=== PATIENT | female | born 2005 | race Two or more races ===

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

== ENCOUNTER 2023-01-05 10:30 | Outpatient (AMB) | payer MEDICAID, SELFPAY ==
--- NOTE | 2023-01-05 11:02 | MHC.OFFVIS ---
Intake Intake Visit Reasons: 6m/KUB(set) Intake Note: Patient is present for follow up ultrasound/litholink results (imaging 12/22/22) Urology Medications: nonoe Antibiotic Allergy: None Head Inspector Required: No Accompanied by: Mother Allergies Seasonal Allergies Allergy (Unknown, Verified 01/05/23 11:27) Unknown Medication List - Last Reconciled 01/05/23 by CARMELO Vail- acetaminophen (Tylenol) 650 mg (2 x 325 mg) PO Q6H PRN albuterol sulfate 90 mcg/actuation (ProAir HFA) 2 - 4 puffs inhalation Q4H PRN cetirizine 10 mg PO DAILY PRN cholecalciferol (vitamin D3) 25 mcg PO DAILY 30 days etonogestrel (Nexplanon) subdermal fluticasone propionate 44 mcg/actuation (Flovent HFA) inhalation hyoscyamine sulfate (Levsin/SL) 0.125 mg PO BID-QID PRN ibuprofen 400 mg PO Q6H PRN inhalational spacing device ([facility] spacer) As directed pantoprazole 40 mg PO DAILY prednisone 20 mg PO DAILY 5 days psyllium husk (Metamucil) 1 tbsp PO BID PRN pyridoxine (vitamin B6) 50 mg PO DAILY 90 days tamsulosin 0.4 mg PO DAILY 14 days HPI HPI Comments History of Present Illness Details Stephanie is a very pleasant 17 year old female patient of Dr. Bailey who was accompanied by her mom at today's office visit. She has a past medical history of hyperparathyroidism, hyperbilirubinemia, goiter, vitamin-D deficiency, hypercalcemia, nephrolithiasis, and asthma. She presents to the office today for follow-up of her nephrolithiasis. Recent imaging and 24 hour urine collection results reviewed with the patient and her mother today. Extremely low urine volume of 310 mL suggestive of discrepancy in the collection process. When asked patient does report having collected your risk appropriatetly. The kidneys are normal in size, contour, and echogenicity. No lesions or hydronephrosis noted bilaterally there are numerous nonobstructing calcifications bilaterally the largest measuring approximately 0.5 cm. When asked patient does report concentrated and foul-smelling urine she otherwise denies urinary urgency, urinary frequency, incontinence, nocturia, hematuria, dysuria,, changes to urinary stream, flank pain, fever, and or chills. She is happy with her current voiding parameters. She does endorse to only be drinking 1-2 cups of water daily as well as increased consumption is a of coffee. Discussed at length importance of drinking plenty of water daily. Discussed concentrated and foul-smelling urine related to low urine volume output. Previous labs noting low vitamin-D with elevated borderline calcium and normal PTH. She had been placed on vitamin-D supplementation by primary care and started vitamin B6 approximately 6 months ago. She has a strong family history of nephrolithiasis. In office urinalysis results reviewed with the patient today. BUN-- 04/03 8, 06/03 10, 06/03 11, 07/04 11 Creatinine--04/03 0.66, 06/03 0.77, 06/03 0.81, 07/04 0.77 PFSH Medical History Hyperparathyroidism Hyperbilirubinemia Goiter Vitamin D deficiency Hypercalcemia Bilateral kidney stones Asthma Surgical History Hx of colonoscopy History of esophagogastroduodenoscopy (EGD) History of wisdom tooth extraction Family History Mother No known health problems Father No known health problems Social History Alcohol intake: never Patient Tobacco Use Status: Never used Tobacco Results AMB Urinalysis, Automated UA Leukoctes 70 Judy/uL Last Edit by Steph Felipe on 01/05/23 11:15 UA Nitrite Negative Last Edit by Steph Felipe on 01/05/23 11:15 UA Urobilinogen 0.2 mg/dL Last Edit by Steph Felipe on 01/05/23 11:15 UA Protein 15 mg/dL Last Edit by Steph Felipe on 01/05/23 11:15 UA pH 6.0 Last Edit by Steph Felipe on 01/05/23 11:15 UA Blood 80 Ernesto/uL Last Edit by Steph Felipe on 01/05/23 11:15 UA Specific [place] 1.015 Last Edit by Steph Felipe on 01/05/23 11:15 UA Ketone Last Edit by Steph Mirellakayode on 01/05/23 11:15 UA Bilirubin 0 mg/dL Last Edit by Montanagracemeghna Vukayode on 01/05/23 11:15 UA Glucose 0 mg/dL Last Edit by Steph Mirellakayode on 01/05/23 11:15 Results Reviewed Results Reviewed: Laboratory Last Values Urine pH (Auto) 6.0 01/05/23 11:05 Specific [place] (Auto) 1.015 01/05/23 11:05 Urine Protein (Auto) 15 mg/dL 01/05/23 11:05 Glucose (UA)(Auto) 0 mg/dL 01/05/23 11:05 Urine Blood (Auto) 80 Ernesto/uL 01/05/23 11:05 Urine Nitrite (Auto) Negative 01/05/23 11:05 Urine Bilirubin (Auto) 0 mg/dL 01/05/23 11:05 Urine Urobilinogen (Auto) 0.2 mg/dL 01/05/23 11:05 Leukocyte Esterase (Auto) 70 Judy/uL 01/05/23 11:05 Date of Service: 12/22/22 EXAMINATION: US RETROPERITONEAL LIMITED (RENAL ONLY) FINDINGS: RIGHT KIDNEY: 9.2 x 4.9 x 5.4 cm (SAG x AP x TRV). The kidney is normal in size, contour, and echogenicity. Renal cortical thickness is normal. No focal parenchymal lesions or hydronephrosis. There are numerous nonobstructing calcifications with the largest measured 0.5 cm. LEFT KIDNEY: 9.4 x 5.1 x 4.6 cm (SAG x AP x TRV). The kidney is normal in size, contour, and echogenicity. Renal cortical thickness is normal. No focal parenchymal lesions or hydronephrosis. There are multiple small calcifications with the largest measured 0.5 cm IMPRESSION: Multiple small renal calculi seen bilaterally Assessment & Plan Assessment & Plan (1) Bilateral kidney stones: Code(s): N20.0 - Calculus of kidney Plan In office urinalysis results reviewed with the patient today; as noted above. Recent renal imaging results reviewed with the patient today; as noted above. Recent 24 hour urine collection results reviewed with the patient today; as noted above. Continue vitamin B6 and D supplements as prescribed. Discussed, stressed, and encouraged to drink plenty of water daily. Will repeat 24 hour urine in 3 months Follow-up in 3 months with 24 hour urine and labs to be completed prior; or sooner with any issues, concerns, and or questions. Orders: Orders Blood Urea Nitrogen 01/05/23 N20.0 - Calculus of kidney AMB Urinalysis Automated 01/05/23 Z13.9 - Encounter for screening, unspecified URORISK 3 Months N20.0 - Calculus of kidney Creatinine 01/05/23 N20.0 - Calculus of kidney Patient Instructions: The patient had an opportunity to ask questions regarding the treatment plan. All questions were answered. Physical exam, labs, and imaging were discussed and reviewed in detail. As well as risks, benefits, and discussion of treatment choices. No major barriers to understanding were identified. The patient expressed understanding and agreement with the above treatment plan. The patient was made aware they should contact our office by phone for worsening of their current condition, the appearance of new symptoms, or with any questions or concerns. Compliance is encouraged with any medications and follow up testing that is ordered. It is a privilege to be allowed the opportunity to participate in? your urological care.? Again, if you have any questions or concerns If you have any questions or concerns please do not hesitate to contact me. The office is [phone]. This note is constructed using voice recognition software. While every effort has been made to ensure accuracy allergy specialist errors may have been included. Yours sincerely, JEFE Vail Coding Level of Care Code Est Pt Level 3 (70338) Diagnoses Bilateral kidney stones N20.0
== END 2023-01-05 12:08 | disposition home or self-care (01) ==
PROVIDERS: Visit Provider Nurse Practitioner Family
DX: N20.0 Calculus of kidney (principal)
CPT/HCPCS: 99213

== ENCOUNTER → 2023-01-05 10:30 | Outpatient (BNVA) | payer MEDICAID, SELFPAY | PROVIDERS: Visit Provider Nurse Practitioner Family | DX: N20.0 Calculus of kidney (principal) | CPT/HCPCS: 81003; 99212 ==

== ENCOUNTER 2023-02-25 13:07 | Emergency (ER) | payer OTHER, MEDICAID, SELFPAY ==
--- NOTE | ~2023-02-25 | CT_ITS ---
EXAMINATION: CT ANGIOGRAM ABDOMEN AND PELVIS CLINICAL INFORMATION: Worsening abdominal pain. COMPARISON: CT angiography of abdomen and pelvis from 09/01/2022. Renal ultrasound from 12/22/2022. TECHNIQUE: Multidetector CT imaging examination of the abdomen and pelvis is performed in the arterial phase of intravenous administration of 80 mL Omnipaque 350. The axial images and multiplanar reformatted images are reviewed. Images were not reviewed on a dedicated 3-D workstation. 2-D coronal and sagittal reformatted images and 3-D maximum intensity projection MIP images are generated on the CT workstation. This CT examination was performed using dose optimization techniques as appropriate, variously including the following: *Automated exposure control *Adjustment of mA and/or kV according to patient size (this includes techniques or standardized protocols for targeted exams where dose is matched to indication/reason for exam; i.e. extremities or head) *Use of iterative reconstruction technique DLP: 291 mGy-cm FINDINGS: LUNG BASES: Normal. No pulmonary consolidation or pleural effusion. HEPATOBILIARY: The liver has normal size, shape, and attenuation. Gallbladder has a normal appearance. No radiopaque stones, wall thickening or pericholecystic fluid. No dilated bile ducts. PANCREAS: No edema, pancreatic ductal dilatation or mass. SPLEEN: Normal. ADRENAL GLANDS: Normal. KIDNEYS AND URETERS: Kidneys are normal in size and enhance symmetrically. There is a 0.4 cm calyceal stone of the mid left kidney. Also, there are a few small stones of the mid and left lower pole. Multiple calyceal stones are present within the right kidney, all measuring < 0.5 cm. No ureteral calculi, hydroureter or hydronephrosis. BLADDER: Normal. No calculi or wall thickening. BOWEL AND PERITONEUM: Stomach is normal. No dilated loops of bowel. No evidence of bowel wall edema, mucosal hyperenhancement or mesenteric fat stranding. The appendix is normal. No free fluid or pneumoperitoneum. ABDOMINAL WALL: Normal. VASCULATURE: Abdominal aorta has normal caliber and contour. The celiac artery and its branches are widely patent. No significant celiac artery stenosis. There is no hooked appearance of the vessel; no anatomic abnormalities on this angiography examination to suggest any predisposition to a clinically significant median arcuate ligament compression abnormality. The superior and inferior mesenteric arteries are normal. The renal arteries are widely patent. The common, external and internal iliac arteries are normal. LYMPH NODES: No pathologic sized lymph nodes in the abdomen or pelvis. No inguinal lymphadenopathy. PELVIC VISCERA: No uterine or adnexal mass. No pelvic free fluid. MUSCULOSKELETAL: No acute or suspicious osseous findings. 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 CT/CT angio abdomen pelvis IMPRESSION: * No acute imaging abnormalities. No specific source of abdominal pain is identified. There is no evidence of inflammatory change or obstruction of bowel. * The abdominal aorta and its branch vessels are widely patent. There is no significant stenosis of the celiac artery or SMA. * Again noted are multiple bilateral renal stones. However, no evidence of ureteral calculi or hydroureteronephrosis.
--- NOTE | ~2023-02-25 | XR_ITS ---
EXAMINATION: XR CHEST CLINICAL INFORMATION: Epigastric pain. COMPARISON: None available. TECHNIQUE: 2 views of the chest were obtained. FINDINGS: Lungs are well-inflated and clear. Trachea is midline in position. No interstitial infiltrate, consolidation or mass. No pleural effusion or pneumothorax. Cardiac silhouette and pulmonary vessels are normal in size. The mediastinum and constantin have normal contour. The visualized bones and upper abdomen are unremarkable. No evidence of bowel distention or pneumoperitoneum in the visualized portion of the upper abdomen. XR/XR chest 2V IMPRESSION: Normal chest. No acute cardiopulmonary abnormality.
[2023-02-25 13:17] VITALS: BP 132/70; PULSE 86; RESP 20; TEMP 37.1; O2SAT 99; BMI 25.3
--- NOTE | 2023-02-25 13:17 | ECG_ITS ---
Test Reason : epigastric pain Blood Pressure : / mmHG Vent. Rate : 077 BPM Atrial Rate : 077 BPM P-R Int : 138 ms QRS Dur : 080 ms QT Int : 388 ms P-R-T Axes : 068 041 010 degrees QTc Int : 439 ms Normal sinus rhythm with sinus arrhythmia Normal ECG No previous ECGs available Referred By: Tori Grijalva Electronically Signed By:Zac Martinez
--- NOTE | 2023-02-25 13:17 | ED.GENADULT ---
HPI - General Adult General Chief complaint: Abdominal Pain Stated complaint: Upper Stomach Pain Time Seen by Provider: 02/25/23 13:51 Source: patient, family and old records reviewed Mode of arrival: ambulatory Limitations: no limitations History of Present Illness HPI narrative: 17 yo female with PMH of GERD, abdominal pain, MALS followed by juan jose Santizo Dr. from GI - on pantoprazole, elevate bili levels who comes in with c/o burning abdominal pain up into the chest that hurts to eat which staretd tuesday. she is compliant with her PPI. She denies known food exposure or change in diet. She hasn't eaten much due to the pain. She states she doesn't feel great. The pain was so severe at one point that she like weak and dizzy with white spots like she might pass out. Her mom tried to call GI and vascular but no answer. MD complaint: abdominal pain Onset (ago): day(s) (2) Location: abdomen Radiation: non-radiation Severity: moderate Quality: burning Pain Consistency: constant Relieving factors: none Exacerbating factors: eating Associated symptoms: nausea/vomiting Treatments prior to arrival: none Related Data Home Medications Medication Instructions Recorded Confirmed albuterol sulfate 90 mcg/actuation 2 - 4 puff inhalation Q4H PRN 06/16/22 07/23/22 aerosol inhaler (ProAir HFA) Shortness Of Breath cetirizine 10 mg tablet 10 mg PO DAILY PRN allergies 06/16/22 07/23/22 etonogestrel 68 mg subdermal subdermal 06/16/22 06/16/22 implant (Nexplanon) ibuprofen 400 mg tablet 400 mg PO Q6H PRN moderate pain 06/16/22 07/23/22 fluticasone propionate 44 inhalation 07/27/22 07/27/22 mcg/actuation HFA aerosol inhaler (Flovent HFA) psyllium husk 3.4 gram/5.4 gram 1 tbsp PO BID PRN Constipation 07/27/22 07/23/22 oral powder (Metamucil) inhalational spacing device #1 ea 12/27/22 (OptiChamber Koki VHC spacer) Previous Rx's Medication Instructions Recorded acetaminophen 325 mg tablet 650 mg (2 x 325 mg) PO Q6H PRN 02/11/21 (Tylenol) fever or pain #10 tabs cholecalciferol (vitamin D3) 25 25 mcg PO DAILY 30 days #30 caps 06/21/22 mcg (1,000 unit) capsule prednisone 20 mg tablet 20 mg PO DAILY 5 days #5 tabs 10/20/22 tamsulosin 0.4 mg capsule 0.4 mg PO DAILY 14 days #14 caps 10/20/22 pantoprazole 40 mg tablet,delayed 40 mg PO DAILY #90 tabs 11/22/22 release hyoscyamine sulfate 0.125 mg 0.125 mg PO BID-QID PRN dyspepsia 12/27/22 sublingual tablet (Levsin/SL) #30 tabs pyridoxine (vitamin B6) 50 mg 50 mg PO DAILY 90 days #90 tabs 01/07/23 tablet sucralfate 100 mg/mL oral 5 ml PO TID #1,000 mL 02/25/23 suspension (Carafate) Allergies Allergy/AdvReac Type Severity Reaction Status Date / Time Seasonal Allergies Allergy Unknown Unknown Verified 01/05/23 11:27 Review of Systems Review of Systems: Constitutional : No Weight loss, No Fever, No Chills ENT/Mouth : No sore throat, No Rhinorrhea Eyes: No Swelling, No Redness Cardiovascular : No Chest Pain, No SOB, NoEdema Respiratory : No Cough, No Sputum, No Wheezing Gastrointestinal : Positive Nausea, no Vomiting, no Diarrhea, positive abdominal Pain, No Hematochezia, No Melena Genitourinary : No Dysuria, No Urinary Frequency, No Hematuria, No Urgency Musculoskeletal : No joint pain, No Myalgias, No Joint Swelling Skin : No Skin Lesions, No rash Neuro : No Weakness, No Numbness, No Dizziness, No Headache Psych : No Anxiety/Panic, No Depression Heme/Lymph: No Bruising, No Lymphadenopathy Endocrine : No Polyuria, No Polydipsia All other systems reviewed and are negative. [facility] Past Medical History Source: old records reviewed Medical History Hyperparathyroidism Hyperbilirubinemia Goiter Vitamin D deficiency Hypercalcemia Bilateral kidney stones Asthma Surgical History Hx of colonoscopy History of esophagogastroduodenoscopy (EGD) History of wisdom tooth extraction Family History Family History Mother No known health problems Father No known health problems Social History Social History Alcohol intake: never Patient Tobacco Use Status: Never used Tobacco Advance Directives: No Advance Directives Information Provided: Yes Physical Exam ED Vital Signs: Vital Signs - 24 hr 02/25/23 13:17 02/25/23 16:57 Temperature 98.7 F 98.5 F Pulse Rate 86 84 Respiratory Rate 20 16 Blood Pressure 132/70 111/66 Pulse Oximetry 99 99 Oxygen Delivery Method Room Air Room Air BMI result Body Mass Index 25.3 Appearance: Alert. Oriented X3. No acute distress. Eyes: Pupils equal, round and reactive to light. ENT: Pharynx normal. Neck: Normal inspection. Neck supple. CVS: Normal heart rate and rhythm. Pulses normal. Respiratory: No respiratory distress. Breath sounds normal. Abdomen: Soft and nontender. Skin: Skin warm and dry. Normal skin color. Normal skin turgor. Extremities: No lower extremity edema. No calf ttp Neuro: Oriented X 3. No motor deficit. No sensory deficit. Course Course Course Narrative: RME performed by Tori Grijalva PA-C. Patient is a 17 year old assigned female at presenting to the emergency department with burning pain in her upper abdomen after she eats. Patient states that is much worse when she lies flat. Labs and swabs ordered. Patient placed back in the waiting room pending room availability and results. Medications Administered Discontinued Medications Generic Name Dose Route Start Last Admin Trade Name Freq PRN Reason Stop Dose Admin Al Hydroxide/Mg Hydroxide 15 ml 02/25/23 14:17 02/25/23 14:31 Magnesium Hydrox/Alum Hydrox 30 Ml Oral.Susp PO 02/25/23 14:18 15 ml ONCE ONE Administration Sodium Chloride 1,000 mls @ 999 mls/hr 02/25/23 14:30 02/25/23 14:27 Ns IV 02/25/23 15:30 999 mls/hr .Q1H1M ZARINA Administration Iohexol 80 ml 02/25/23 16:12 02/25/23 16:12 Iohexol 350 Mg/Ml 100 Ml Infus..Btl IV 02/25/23 16:13 80 ml ONCE ONE Administration Lidocaine HCl 15 ml 02/25/23 14:17 02/25/23 14:31 Lidocaine Hcl Viscous 2 % 15 Ml Solution MUCOUS MEM 02/25/23 14:18 15 ml ONCE ONE Administration Ondansetron HCl 4 mg 02/25/23 14:17 02/25/23 14:31 Ondansetron Hcl 4 Mg/2 Ml Vial IVPUSH 02/25/23 14:18 4 mg ONCE ONE Administration Medical Decision Making Medical Decision Making MDM Narrative: 17 yo female with PMH of GERD, abdominal pain, MALS followed by juan jose Santizo Dr. from GI - on pantoprazole, elevate bili levels who comes in with c/o worsening abdominal pain but no GIB symptom no vomiting - at this time given hx will obtain basic labs, CTA of abdomen given MALS and hydrate as well as GI cocktail. Differential Diagnosis Differential Diagnoses: The differential diagnosis associated with the presentation includes gastritis, GERD, MAL Admission/Observation Consideration of admission/observation: Escalation of care including admission/observation considered negative workup stable for DC will start on carafate CT scan reassuring Lab Data [facility] Lab Attestation statement: I reviewed the patient's lab results. 02/25/23 14:11 02/25/23 14:11 Labs: Lab Results 02/25/23 02/25/23 02/25/23 Range/Units 13:45 14:11 17:26 WBC 10.6 (4.8-10.8) X10*3/uL RBC 4.67 (4.20-5.50) X10*6/uL Hgb 13.7 (12.0-16.0) g/dl Hct 41.5 (37.0-47.0) % MCV 88.9 (80.0-98.0) fL MCH 29.3 (27.0-33.0) pg MCHC 33.0 (31.0-35.0) g/dl RDW 12.7 (11.0-16.0) % Plt Count 353 (160-400) X10*3/uL MPV 9.4 (9.4-12.3) fL Immature Gran % (Auto) 0.3 (0.0-0.4) % Neut % (Auto) 68.7 (45-73) % Lymph % (Auto) 20.3 (20-40) % [place] % (Auto) 7.3 (2-11) % Eos % (Auto) 2.9 (0-4) % Baso % (Auto) 0.5 (0-2) % Lymph # (Auto) 2.2 (1.2-4.9) X10*3/uL [place] # (Auto) 0.8 (0.1-1.2) X10*3/uL Eos # (Auto) 0.3 (0.0-0.4) X10*3/uL Baso # (Auto) 0.1 (0.0-0.2) X10*3/uL Abs Immat Gran (auto) 0.03 (0.00-0.03) X10*3/uL Absolute Neuts (auto) 7.3 (2.0-8.3) x10*3/uL Absolute Nucleated RBC 0.000 (0.0-0.012) X10*3/uL Nucleated RBC % (auto) 0.0 (0.0-0.2) /100WBC Sodium 139 (135-145) mmol/L Potassium 4.2 (3.3-5.1) mmol/L Chloride 107 (96-108) mmol/L Carbon Dioxide 25 (22-29) mmol/L Anion Gap 11 L (12-20) BUN 12 (9-16) mg/dL Creatinine 0.82 (0.5-1.4) mg/dL Estim Creat Clear Calc 92.3 Estimated GFR > 60 Random Glucose 95 (60-115) mg/dL Calcium 10.1 (8.4-10.2) mg/dL Magnesium 2.2 (1.6-2.6) mg/dL Total Bilirubin 1.0 (0.0-1.0) mg/dL AST 15 (5-31) U/L ALT 9 (0-31) U/L Alkaline Phosphatase 90 (39-117) U/L Troponin I High Sens < 2.7 (<3.5-17.0) ng/L Total Protein 7.8 (6.5-8.0) g/dL Albumin 4.4 (3.5-5.0) g/dL Beta HCG, Quant < 2 mIU/mL Urine Color Yellow Urine Appearance Clear Urine pH 7.0 (5.0-9.0) Ur Specific [place] >= 1.030 H (1.005-1.025) Urine Protein Negative (Neg-Trace) mg/dL Urine Glucose (UA) Negative (Negative) mg/dL Urine Ketones Negative (Negative) mg/dL Urine Blood Moderate (2+) H (Negative) Urine Nitrite Negative (Negative) Ur Leukocyte Esterase Negative (Negative) Urine RBC >20 H (0-2) /HPF Urine WBC 0-5 (0-5) /HPF Ur Squamous Epith Cells 0-2 (0-2) /HPF Urine Bacteria None Seen (None Seen) Hyaline Casts 0-2 (0-2) /LPF Influenza Type A (PCR) NEGATIVE (Negative) Influenza Type B (PCR) NEGATIVE (Negative) RSV RNA Qual (PCR) NEGATIVE (Negative) SARS-CoV-2 RNA (RT-PCR) NEGATIVE (Negative) Independent Interpretation I performed an independent interpretation of an: EKG and CT Scan (normal arteries) Interpretation: Rate: 77 Rhythm: NSR [place]: normal Normal P waves. Normal CARLENE. Normal QRS complex. ST T wave : no SERGO, inverted t wave III and aVF qTC: normal prior studies: no acute ischemia The study has been interpreted contemporaneously by me. . Radiology Impression Discussion of test interpretation with radiology: I have reviewed the radiologist's reading. Independent Historian Clinical information obtained from an independent historian. History obtained from or confirmed by: Parent External Record Review External record reviewed: Office record Prescription Management I considered prescription management with: Other Discharge Plan Discharge Clinical Impression: Abdominal pain, epigastric Patient Disposition: Home, Self-Care Instructions: Abdominal Pain (ED) Additional Instructions: labs and CT scan reassuring. return for worsening symptoms inability to eat or drink or any other concerns. continue your medications and follow up with your GI doctor Prescriptions: New sucralfate [Carafate] 100 mg/mL suspension 5 ml PO TID Qty: 1000 0RF Rx Instructions: swish in mouth and swallow; use after food/drink No Action cholecalciferol (vitamin D3) 25 mcg (1,000 unit) capsule 25 mcg PO DAILY 30 Days Qty: 30 11RF tamsulosin 0.4 mg capsule 0.4 mg PO DAILY 14 Days Qty: 14 0RF prednisone 20 mg tablet 20 mg PO DAILY 5 Days Qty: 5 0RF pantoprazole 40 mg tablet,delayed release (DR/EC) 40 mg PO DAILY Qty: 90 2RF pyridoxine (vitamin B6) 50 mg tablet 50 mg PO DAILY 90 Days Qty: 90 1RF acetaminophen [Tylenol] 325 mg tablet 650 mg PO Q6H PRN (Reason: fever or pain) Qty: 10 0RF fluticasone propionate [Flovent HFA] 44 mcg/actuation HFA aerosol inhaler INHALATION Metamucil 3.4 gram/5.4 gram powder 1 tbsp PO BID PRN (Reason: Constipation) Rx Instructions: mix into at least 8 oz of water or juice before administering (DME) Verónica Telles [facility] Spacer See Rx Instructions .ROUTE DIRECTED Qty: 1 Rx Instructions: As directed hyoscyamine sulfate [Levsin/SL] 0.125 mg tablet, sublingual 0.125 mg PO BID-QID PRN (Reason: dyspepsia) Qty: 30 0RF cetirizine 10 mg tablet 10 mg PO DAILY PRN (Reason: allergies) albuterol sulfate [ProAir HFA] 90 mcg/actuation HFA aerosol inhaler 2 - 4 puff inhalation Q4H PRN (Reason: Shortness Of Breath) ibuprofen 400 mg tablet 400 mg PO Q6H PRN (Reason: moderate pain) Nexplanon 68 mg implant subdermal Stand Alone Forms: Work/School Release
[2023-02-25 14:15] LABS: MANUAL DIFF FLAG NO
[2023-02-25 14:16] LABS: Basophils Absolute Auto 0.1 X10*3/uL (0.0-0.2); Basophils Percent Auto 0.5 % (0-2); Eosinophils Absolute Auto 0.3 X10*3/uL (0.0-0.4); Eosinophils Percent Auto 2.9 % (0-4); Hematocrit 41.5 % (37.0-47.0); Hemoglobin 13.7 g/dl (12.0-16.0); Imm Gran Abs Auto 0.03 X10*3/uL (0.00-0.03); Imm Gran Pct Auto 0.3 % (0.0-0.4); Lymphocytes Absolute Auto 2.2 X10*3/uL (1.2-4.9); Lymphocytes Percent Auto 20.3 % (20-40); Mean Corpuscular Hemoglobin 29.3 pg (27.0-33.0); Mean Corpuscular Volume 88.9 fL (80.0-98.0); Mean Platelet Volume 9.4 fL (9.4-12.3); Monocytes Absolute Auto 0.8 X10*3/uL (0.1-1.2); Monocytes Percent Auto 7.3 % (2-11); Neutrophils Absolute Auto 7.3 x10*3/uL (2.0-8.3); Neutrophils Percent Auto 68.7 % (45-73); Platelet Count 353 X10*3/uL (160-400); Red Blood Count 4.67 X10*6/uL (4.20-5.50); Red Cell Distribution Width 12.7 % (11.0-16.0); White Blood Count 10.6 X10*3/uL (4.8-10.8)
[2023-02-25 14:27] LABS: Influenza A PCR NEGATIVE (Negative); Influenza B PCR NEGATIVE (Negative); Resp Syncy Virus RNA Qual PCR NEGATIVE (Negative); SARS COV2 PCR INHOUSE NEGATIVE (Negative)
[2023-02-25] MEDS: 0.9 % Sodium Chloride 1,000 ML 999 ML IV (14:27)
[2023-02-25] MEDS: Magnesium Hydrox/Alum Hydrox 30 ML ORAL.SUSP 15 ML PO (14:31)
[2023-02-25] MEDS: Lidocaine HCl Viscous 2 % 15 ML SOLUTION MUCOUS MEM (14:31)
[2023-02-25] MEDS: ondansetron HCL 4 MG/2 ML VIAL IVPUSH (14:31)
[2023-02-25 14:37] LABS: Alanine Aminotransferase 9 U/L (0-31); Albumin Level 4.4 g/dL (3.5-5.0); Alkaline Phosphatase 90 U/L (39-117); Anion Gap 11 (12-20); Aspartate Amino Transferase 15 U/L (5-31); Blood Urea Nitrogen 12 mg/dL (9-16); Calcium 10.1 mg/dL (8.4-10.2); Carbon Dioxide 25 mmol/L (22-29); Chloride 107 mmol/L (96-108); Creatinine Clr Calc Pharmacy 92.3; Estimated Glomerular Filt Rate > 60; Glucose Random 95 mg/dL (60-115); HCG Quantitative < 2 mIU/mL; Magnesium 2.2 mg/dL (1.6-2.6); Potassium 4.2 mmol/L (3.3-5.1); Sodium 139 mmol/L (135-145); Total Protein 7.8 g/dL (6.5-8.0); Troponin-I High Sensitivity < 2.7 ng/L (<3.5-17.0)
[2023-02-25] MEDS: iohexoL 350 MG/ML 100 ML INFUS..BTL 80 ML IV (16:12)
[2023-02-25 16:57] VITALS: BP 111/66; PULSE 84; RESP 16; TEMP 36.9; O2SAT 99
--- NOTE | 2023-02-25 17:33 | PC.NURSE ---
patient continues to rest comfortably in room with IV fluids infusing. able to provide urine sample which was sent. awaiting dispo.
[2023-02-25 17:34] LABS: Appearance Urine Clear; Color Urine Yellow; Glucose Urine UA Negative (Negative); Leukocyte Esterase Urine Negative (Negative); Nitrite Urine Negative (Negative); Specific Gravity - Urine >= 1.030 (1.005-1.025); UMIC TRIGGER UACC YES; Urine Blood Moderate (2+) (Negative); Urine Ketones Negative (Negative); Urine Protein Negative (Neg-Trace)
[2023-02-25 17:37] LABS: Bacteria Urine None Seen (None Seen); Hyaline Casts Urine 0-2 /LPF (0-2); RBC Urine >20 /HPF (0-2); Squamous Epithelial Cell Urine 0-2 /HPF (0-2); WBC Urine 0-5 /HPF (0-5)
== END 2023-02-25 18:30 | disposition home or self-care (01) ==
PROVIDERS: Physician Assistant Medical; Emergency Provider Emergency Medicine; PCP Nurse Practitioner
DX: R10.13 Epigastric pain (principal); R11.2 Nausea with vomiting, unspecified; I49.9 Cardiac arrhythmia, unspecified; Z79.899 Other long term (current) drug therapy; Z20.822 Contact with and (suspected) exposure to COVID-19; Z20.828 Contact with and (suspected) exposure to other viral communicable diseases
CPT/HCPCS: 0241U; 36415; 71046; 74174; 80053; 81001; 83735; 84484; 84702; 85025; 93005; 96374; 99284; J2405; Q9967

== ENCOUNTER → 2023-02-25 13:17 | Outpatient (BNV) | payer OTHER, MEDICAID, SELFPAY | PROVIDERS: Emergency Provider Emergency Medicine; PCP Nurse Practitioner; Visit Provider Internal Medicine Cardiovascular Disease | DX: R10.13 Epigastric pain (principal) | CPT/HCPCS: 93010 ==

== ENCOUNTER 2023-04-19 10:40 | Emergency (ER) | payer OTHER, SELFPAY ==
--- NOTE | ~2023-04-19 | XR_ITS ---
EXAMINATION: XR CHEST CLINICAL INFORMATION: Chest tightness. Allergic reaction. COMPARISON: None available. TECHNIQUE: 2 views of the chest were obtained. FINDINGS: The heart and pulmonary vessels are normal. The mediastinal and hilar contours are normal. Lungs clear. No pleural effusions. XR/XR chest 2V IMPRESSION: No active disease.
[2023-04-19 10:42] VITALS: BP 141/84; PULSE 87; RESP 20; TEMP 36.6; O2SAT 100; BMI 26.9
[2023-04-19 15:06] VITALS: BP 118/73; PULSE 88; RESP 18; TEMP 36.6; O2SAT 100
--- NOTE | 2023-04-19 15:53 | ED.ALLEREA ---
HPI - Allergic Reaction General Chief complaint: Allergic Reaction Stated complaint: Allergic Reaction to Peanuts Time Seen by Provider: 04/19/23 15:15 Source: patient Mode of arrival: ambulatory Limitations: no limitations History of Present Illness HPI narrative: 18 year old female with pmhx significant for asthma, GERD, MALS followed by Dr. Santizo, hyperparathyroidism, endometriosis presents to the ED today for evaluation of possible allergic reaction s/p eating peanut butter crackers around 0930 this morning. Admits to eating these crackers and immediately felt her throat and lips began to feel itchy. States that she initially thought it was an asthma exacerbation and took a few puffs of her inhaler without relief. She then took a Benadryl around 1045. Since this time, symptoms have been slowly resolving. She still feels an itchiness in her chest and feels off . Denies headache, dizziness, confusion, chest pain, SOB, dyspnea, N/V, odynophagia, dysphagia, rashes, LE pain/swelling. Denies known allergy to peanut butter. Endorses seasonal allergies and allergy to banana and kiwi. Related Data Home Medications Medication Instructions Recorded Confirmed albuterol sulfate 90 mcg/actuation 2 - 4 puff inhalation Q4H PRN 06/16/22 07/23/22 aerosol inhaler (ProAir HFA) Shortness Of Breath cetirizine 10 mg tablet 10 mg PO DAILY PRN allergies 06/16/22 07/23/22 etonogestrel 68 mg subdermal subdermal 06/16/22 06/16/22 implant (Nexplanon) ibuprofen 400 mg tablet 400 mg PO Q6H PRN moderate pain 06/16/22 07/23/22 fluticasone propionate 44 inhalation 07/27/22 07/27/22 mcg/actuation HFA aerosol inhaler (Flovent HFA) psyllium husk 3.4 gram/5.4 gram 1 tbsp PO BID PRN Constipation 07/27/22 07/23/22 oral powder (Metamucil) inhalational spacing device #1 ea 12/27/22 ([facility] spacer) Previous Rx's Medication Instructions Recorded acetaminophen 325 mg tablet 650 mg (2 x 325 mg) PO Q6H PRN 02/11/21 (Tylenol) fever or pain #10 tabs cholecalciferol (vitamin D3) 25 25 mcg PO DAILY 30 days #30 caps 06/21/22 mcg (1,000 unit) capsule prednisone 20 mg tablet 20 mg PO DAILY 5 days #5 tabs 10/20/22 tamsulosin 0.4 mg capsule 0.4 mg PO DAILY 14 days #14 caps 10/20/22 pantoprazole 40 mg tablet,delayed 40 mg PO DAILY #90 tabs 11/22/22 release hyoscyamine sulfate 0.125 mg 0.125 mg PO BID-QID PRN dyspepsia 12/27/22 sublingual tablet (Levsin/SL) #30 tabs pyridoxine (vitamin B6) 50 mg 50 mg PO DAILY 90 days #90 tabs 01/07/23 tablet sucralfate 100 mg/mL oral 5 ml PO TID #1,000 mL 02/25/23 suspension (Carafate) cetirizine 10 mg tablet (Zyrtec) 5 mg (1/2 x 10 mg) PO BEDTIME PRN 04/19/23 allergy symptoms #10 tabs diphenhydramine HCl 25 mg tablet 25 mg PO BEDTIME PRN allergy 04/19/23 (Benadryl Allergy) symptoms #10 tabs epinephrine 0.15 mg/0.3 mL 0.15 mg (0.3 mL) IM Q30M PRN 04/19/23 injection,auto-injector anaphylaxis #2 ea prednisone 20 mg tablet 20 mg PO DAILY 5 days #5 tabs 04/19/23 Allergies Allergy/AdvReac Type Severity Reaction Status Date / Time Seasonal Allergies Allergy Unknown Unknown Verified 01/05/23 11:27 banana Allergy Shortness Verified 04/19/23 10:46 of Breath kiwi Allergy Shortness Verified 04/19/23 10:46 of Breath Review of Systems Review of Systems: Constitutional: No fever, chills, fatigue, night sweats, weight changes ENT/Mouth: No ear pain, hearing loss, nasal congestion, sinus pain, rhinorrhea, +sore throat, +odynophagia, No dysphagia Eyes: No eye pain, swelling, redness, vision changes, discharge Cardio: No palpitations, RINCON, orthopnea, peripheral edema, + chest itchiness Pulm: No SOB, cough, sputum, wheezing, dyspnea, hemoptysis GI: No nausea, vomiting, hematemesis, abdominal pain, diarrhea, constipation, hematochezia, melena : No irregular bleeding, dysuria, frequency, urgency, hesitancy, hematuria, flank pain MSK: No back pain, neck pain, joint pain, myalgias Skin: No lesions, rashes Neuro: No weakness, numbness, paresthesias, LOC, dizziness, headache All other systems reviewed and are negative. Yes all other systems are reviewed and are negative [facility] Past Medical History Attestation statement: The following information was validated with the patient. Source: old records reviewed and nursing notes reviewed Medical History Hyperparathyroidism Hyperbilirubinemia Goiter Vitamin D deficiency Hypercalcemia Bilateral kidney stones Asthma Surgical History Hx of colonoscopy History of esophagogastroduodenoscopy (EGD) History of wisdom tooth extraction Family History Family History Mother No known health problems Father No known health problems Social History Social History Alcohol intake: never Patient Tobacco Use Status: Never used Tobacco Advance Directives: No Advance Directives Information Provided: No Physical Exam ED Vital Signs: Vital Signs - 24 hr 04/19/23 10:42 04/19/23 15:06 Temperature 97.9 F 98 F Pulse Rate 87 88 Respiratory Rate 20 18 Blood Pressure 141/84 H 118/73 Pulse Oximetry 100 100 Oxygen Delivery Method Room Air Room Air BMI result Body Mass Index 26.9 Vital signs stable, afebrile Const Other: + airway patent, speaking in complete sentences General: cooperative, healthy appearing, comfortable, no acute distress, alert and awake Orientation/consciousness: patient oriented x3 Limitations: no limitations HENMT Other: + posterior oropharynx without erythema, no edema, uvula is midline, no tonsilar exudates or peritonsillar masses, controlling secretions and speaking in complete sentences. Head: Yes normal to inspection, Yes normocephalic and Yes atraumatic Ears: hearing grossly normal bilaterally, external ears normal, TM's normal bilaterally, EAC's normal, mastoids normal and no periauricular adenopathy General nose exam: Normal external nose present and No nasal discharge present Face and sinus: Yes normal facial exam and Yes sinuses nontender Eyes General: appearance normal, both eyes and all related structures Conjunctivae: conjunctivae normal Sclerae: sclerae normal Pupils: Equal, round and reactive pupils present Neck Other: + no cervical, submandibular or submental LAD. Neck: Yes normal visual inspection and Yes full ROM Chest Chest palpation & inspection: normal inspection of the chest and normal palpation of entire chest wall Resp Other: + no muffled voice Effort & Inspection: normal respiratory effort, able to speak in complete sentences and no stridor Auscultation: clear to auscultation bilaterally and no wheezes Cardio Rate: regular rate Rhythm: regular rhythm GI Inspection: Yes normal to inspection Palpation (GI): Soft to palpation and nontender Skin General skin exam: no rashes or lesions noted Neuro General: patient oriented x3, gait normal and moves all extremities Cranial nerves: Yes Equal, round and reactive pupils present Extrem General: Yes normal to inspection Course Course Course Narrative: 1707-- CBC without leukocytosis or anemia. H&H stable. No eosinophilia. Sed rate WNL at 6. Chemistry without acute electrolyte abnormality requiring intervention. Renal function normal. CRP WNL at 0.32. Chest x-ray unremarkable. 1723-- on re-evaluation, patient states that she is feeling much better. Her airway is still patent. Her exam is benign. She is speaking in complete sentences. She has been observed both in the waiting room and back in the emergency department for a total of 7 hours. I feel comfortable discharging patient home. Educated patient on EpiPen use. Will send this to pharmacy for anaphylactic situations. Will also send prednisone, Zyrtec, Benadryl to pharmacy. Provided her with a referral to an welding process specialist to update her allergy testing. Patient has remained stable throughout her visit today. I discussed worrisome signs and symptoms and when to return to the ED. All questions answered at this time. Patient is agreeable disposition and stable for discharge. Medications Administered Discontinued Medications Generic Name Dose Route Start Last Admin Trade Name Freq PRN Reason Stop Dose Admin Dexamethasone 6 mg 04/19/23 16:32 04/19/23 16:58 Dexamethasone 6 Mg Tablet PO 04/19/23 16:33 6 mg ONCE ONE Administration Diphenhydramine HCl 25 mg 04/19/23 16:32 04/19/23 16:58 Diphenhydramine Hcl 25 Mg Capsule PO 04/19/23 16:33 25 mg ONCE ONE Administration Famotidine 20 mg 04/19/23 16:32 04/19/23 16:58 Famotidine 20 Mg Tablet PO 04/19/23 16:33 20 mg ONCE ONE Administration Medical Decision Making Medical Decision Making [facility] Narrative: 18 year old female with pmhx significant for asthma, GERD, MALS followed by Dr. Santizo, presents to the ED today for evaluation of possible allergic reaction s/p eating peanut butter crackers around 0930 this morning. Vital signs stable. Patient is nontoxic appearing and in NAD. No rashes. Airway patent. No stridor or muffled voice. posterior oropharynx without erythema, no edema, uvula is midline, no tonsilar exudates or peritonsillar masses, controlling secretions and speaking in complete sentences. Lungs CTA b/l, no wheezes. Clinical concern for allergic reaction, asthma exacerbation, pneumothorax, pneumonia. Unlikely anaphylaxis, strep throat, mono, [employer], retropharyngeal abscess, epiglottitis. Unlikely ACS, arrhythmia. Plan for basic labs, inflammatory markers and chest x-ray. Differential Diagnosis Differential Diagnoses: The differential diagnosis associated with the presentation includes as above. Admission/Observation Not indicated Lab Data [facility] Lab Attestation statement: I reviewed the patient's lab results. as above 04/19/23 16:15 04/19/23 16:15 Labs: Lab Results 04/19/23 Range/Units 16:15 WBC 9.8 (4.8-10.8) X10*3/uL RBC 4.59 (4.20-5.50) X10*6/uL Hgb 13.5 (12.0-16.0) g/dl Hct 40.8 (37.0-47.0) % MCV 88.9 (80.0-98.0) fL MCH 29.4 (27.0-33.0) pg MCHC 33.1 (31.0-35.0) g/dl RDW 13.2 (11.0-16.0) % Plt Count 377 (160-400) X10*3/uL MPV 9.2 L (9.4-12.3) fL Immature Gran % (Auto) 0.1 (0.0-0.4) % Neut % (Auto) 59.0 (45-73) % Lymph % (Auto) 29.0 (20-40) % Rowan % (Auto) 8.0 (2-11) % Eos % (Auto) 3.6 (0-4) % Baso % (Auto) 0.3 (0-2) % Lymph # (Auto) 2.8 (1.2-4.9) X10*3/uL Rowan # (Auto) 0.8 (0.1-1.2) X10*3/uL Eos # (Auto) 0.4 (0.0-0.4) X10*3/uL Baso # (Auto) 0.0 (0.0-0.2) X10*3/uL Abs Immat Gran (auto) 0.01 (0.00-0.03) X10*3/uL Absolute Neuts (auto) 5.8 (2.0-8.3) x10*3/uL Absolute Nucleated RBC 0.000 (0.0-0.012) X10*3/uL Nucleated RBC % (auto) 0.0 (0.0-0.2) /100WBC ESR 6 (0-20) MM/HR Sodium 142 (135-145) mmol/L Potassium 3.9 (3.3-5.1) mmol/L Chloride 105 (96-108) mmol/L Carbon Dioxide 27 (22-29) mmol/L Anion Gap 14 (12-20) BUN 11 (9-16) mg/dL Creatinine 0.71 (0.5-1.4) mg/dL Estim Creat Clear Calc 108.7 Estimated GFR > 60 Random Glucose 69 (60-115) mg/dL Calcium 9.8 (8.4-10.2) mg/dL Magnesium 2.2 (1.6-2.6) mg/dL C-Reactive Protein 0.32 (< or = 0.50) mg/dL Independent Interpretation I performed an independent interpretation of an: Plain X-Ray Interpretation: I have personally reviewed chest x-ray and agree with radiologist's interpretation. Radiology Impression Discussion of test interpretation with radiology: I have reviewed the radiologist's reading. Radiologist Impression: XR chest 2V IMPRESSION: No active disease. External Record Review External record reviewed: Inpatient record Prescription Management I considered prescription management with: Other (Steroid, Benadryl, Zyrtec) Social Determinants Patient?s care significantly limited by Social Determinants of Health including: Other Social Determinant of Health Critical Care Time Critical Care Time Critical Care Time: Yes Total Critical Care Time: 35 Attestation: Critical care time in the amount of 35 minutes has been provided to the patient in terms of direct patient care, frequent reevaluation, review and interpretation of medical data and results, and management of potentially life-threatening conditions. This is all outside of any medical procedures. Discharge Plan Discharge Clinical Impression: Allergic reaction Patient Disposition: Home, Self-Care Instructions: General Allergic Reaction (ED), Allergy Testing (ED) Additional Instructions: Your labs today are reassuring. You chest xray is normal. Prednisone is a steroid that has been sent to your pharmacy. Take this as prescribed over the next five days. Benadryl as an antihistamine that has been sent to your pharmacy. Take this as needed for allergic reaction. Zyrtec is an anti-inflammatory that has been sent to your pharmacy. Take this as needed for allergic reaction. Please avoid peanut butter has exposure to this may cause allergic reaction. An EpiPen has also been sent to your pharmacy. Only take this if he feel as though your throat is closing. You have been instructed on how to use this. If you use the EpiPen, you need to come to the emergency department right away to be evaluated as you may have a rebound reaction. You have been provided with contact information for an welding process specialist. Call them to make an appointment. They will not call you. Follow-up with your primary care provider as needed. If symptoms persist or worsen, please return to the ED. The case of an emergency call 911. Prescriptions: New prednisone 20 mg tablet 20 mg PO DAILY 5 Days Qty: 5 0RF diphenhydramine HCl [Benadryl Allergy] 25 mg tablet 25 mg PO BEDTIME PRN (Reason: allergy symptoms) Qty: 10 0RF cetirizine [Zyrtec] 10 mg tablet 5 mg PO BEDTIME PRN (Reason: allergy symptoms) Qty: 10 0RF epinephrine 0.15 mg/0.3 mL auto-injector 0.15 mg IM Q30M PRN (Reason: anaphylaxis) Qty: 2 0RF Rx Instructions: do not exceed 12 doses per 24 hrs No Action cholecalciferol (vitamin D3) 25 mcg (1,000 unit) capsule 25 mcg PO DAILY 30 Days Qty: 30 11RF tamsulosin 0.4 mg capsule 0.4 mg PO DAILY 14 Days Qty: 14 0RF prednisone 20 mg tablet 20 mg PO DAILY 5 Days Qty: 5 0RF pantoprazole 40 mg tablet,delayed release (DR/EC) 40 mg PO DAILY Qty: 90 2RF pyridoxine (vitamin B6) 50 mg tablet 50 mg PO DAILY 90 Days Qty: 90 1RF acetaminophen [Tylenol] 325 mg tablet 650 mg PO Q6H PRN (Reason: fever or pain) Qty: 10 0RF fluticasone propionate [Flovent HFA] 44 mcg/actuation HFA aerosol inhaler INHALATION Metamucil 3.4 gram/5.4 gram powder 1 tbsp PO BID PRN (Reason: Constipation) Rx Instructions: mix into at least 8 oz of water or juice before administering sucralfate [Carafate] 100 mg/mL suspension 5 ml PO TID Qty: 1000 0RF Rx Instructions: swish in mouth and swallow; use after food/drink (DME) [facility] Spacer See Rx Instructions .ROUTE DIRECTED Qty: 1 Rx Instructions: As directed hyoscyamine sulfate [Levsin/SL] 0.125 mg tablet, sublingual 0.125 mg PO BID-QID PRN (Reason: dyspepsia) Qty: 30 0RF cetirizine 10 mg tablet 10 mg PO DAILY PRN (Reason: allergies) albuterol sulfate [ProAir HFA] 90 mcg/actuation HFA aerosol inhaler 2 - 4 puff inhalation Q4H PRN (Reason: Shortness Of Breath) ibuprofen 400 mg tablet 400 mg PO Q6H PRN (Reason: moderate pain) Nexplanon 68 mg implant subdermal Referrals: Mago Rocha [Primary Care Provider] -
[2023-04-19 16:21] LABS: MANUAL DIFF FLAG NO
[2023-04-19 16:39] LABS: Anion Gap 14 (12-20); Blood Urea Nitrogen 11 mg/dL (9-16); C Reactive Protein 0.32 mg/dL (< or = 0.50); Calcium 9.8 mg/dL (8.4-10.2); Carbon Dioxide 27 mmol/L (22-29); Chloride 105 mmol/L (96-108); Creatinine Clr Calc Pharmacy 108.7; Estimated Glomerular Filt Rate > 60; Glucose Random 69 mg/dL (60-115); Magnesium 2.2 mg/dL (1.6-2.6); Potassium 3.9 mmol/L (3.3-5.1); Sodium 142 mmol/L (135-145)
[2023-04-19 16:51] LABS: Basophils Percent Auto 0.3 % (0-2); Eosinophils Absolute Auto 0.4 X10*3/uL (0.0-0.4); Eosinophils Percent Auto 3.6 % (0-4); Hematocrit 40.8 % (37.0-47.0); Hemoglobin 13.5 g/dl (12.0-16.0); Imm Gran Abs Auto 0.01 X10*3/uL (0.00-0.03); Imm Gran Pct Auto 0.1 % (0.0-0.4); Lymphocytes Absolute Auto 2.8 X10*3/uL (1.2-4.9); Mean Corpuscular HGB Conc 33.1 g/dl (31.0-35.0); Mean Corpuscular Hemoglobin 29.4 pg (27.0-33.0); Mean Corpuscular Volume 88.9 fL (80.0-98.0); Mean Platelet Volume 9.2 fL (9.4-12.3); Monocytes Absolute Auto 0.8 X10*3/uL (0.1-1.2); Neutrophils Absolute Auto 5.8 x10*3/uL (2.0-8.3); Platelet Count 377 X10*3/uL (160-400); Red Blood Count 4.59 X10*6/uL (4.20-5.50); Red Cell Distribution Width 13.2 % (11.0-16.0); White Blood Count 9.8 X10*3/uL (4.8-10.8)
[2023-04-19] MEDS: dexAMETHasone 6 MG TABLET PO (16:58)
[2023-04-19] MEDS: Famotidine 20 MG TABLET PO (16:58)
[2023-04-19] MEDS: diphenhydrAMINE HCL 25 MG CAPSULE PO (16:58)
[2023-04-19 16:59] LABS: Erythrocyte Sedimentation Rate 6 MM/HR (0-20)
== END 2023-04-19 17:42 | disposition home or self-care (01) ==
PROVIDERS: Physician Assistant Medical; Emergency Provider Student in an Organized Health Care Education/Training Program; PCP Nurse Practitioner
DX: T78.1XXA Other adverse food reactions, not elsewhere classified, initial encounter (principal); L29.8 Other pruritus; T78.49XA Other allergy, initial encounter; X58.XXXA Exposure to other specified factors, initial encounter
CPT/HCPCS: 36415; 71046; 80048; 83735; 85025; 85652; 86140; 99282; 99283; J8540

== ENCOUNTER 2023-06-13 14:20 | Outpatient (AMB) | payer OTHER, SELFPAY ==
--- NOTE | 2023-06-13 14:20 | MHC.OFFVIS ---
Intake Intake Visit Reasons: 4 month follow up Intake Note: Stephanie presents as a telehealth 4 month follow up. CC: She is not having any concerns at this time. Allergies Seasonal Allergies Allergy (Unknown, Verified 06/13/23 14:20) Unknown banana Allergy (Verified 06/13/23 14:20) Shortness of Breath kiwi Allergy (Verified 06/13/23 14:20) Shortness of Breath HPI 4 month follow up HPI Details 18 yr old patient being seen for assessment for abn bowel habits, raised bili on lab being called for f/u RECAP: she has bouts of diarrhea but also issues with constipation she has to put pressure to pass stools, can be helpful she has cramping and burning pain in the lower abdo, when she passes the stool it relieves the pain, can go into the back she has pain and pressure in the rectum going on for 2 months urine volume and abn pressure sensation periods are less due to nexplanon she has nausea and vomiting, if the pain is too much she has joint pains in hands and knees, better as day progresses she has reflux sx as well she has fatigue she loves fruits, maybe not so good with veg --has food allergies IMAGING: CT 05/2022: tiny kidney stones US: GB polyps, small, right kidney cyst mesenteric US_ increased velocities ?MALS CTA_ possible celiac compression but not classic CTA: 02/25/23- normal areteries, b/l renal stones EGD/colo:2022 Endoscopy Findings: possible gastroparesis gastric pallor, possible extrinsic compression Colonoscopy Findings: internal hemorrhoids possible colonic inertia Path: increased eos in colon and esophagus INTERIM: she had issues with stones this week and being passing them she has noted constipation, using miralax and fiber and she feels it makes it worse no stool she admits to straining as well stool is like banana consistency she is taking pantoprazole daily and it works well for her appetite is variable A/P: 1/ GERD--controlled 2/ constipation- probable slow transit constipation Plan: 1/ Cont with PPI--take Mv and D supplement 1000 units daily 2/ trial of linaclotide, 145 mcg, can go up or down on dose depending on response [facility] Medical History Hyperparathyroidism Hyperbilirubinemia Goiter Vitamin D deficiency Hypercalcemia Bilateral kidney stones Asthma Surgical History Hx of colonoscopy History of esophagogastroduodenoscopy (EGD) History of wisdom tooth extraction Family History Mother No known health problems Father No known health problems Social History Alcohol intake: never Patient Tobacco Use Status: Never used Tobacco Assessment & Plan Assessment & Plan (1) GERD (gastroesophageal reflux disease): Code(s): K21.9 - Gastro-esophageal reflux disease without esophagitis Plan A/P: 1/ GERD--controlled 2/ constipation- probable slow transit constipation Plan: 1/ Cont with PPI--take Mv and D supplement 1000 units daily 2/ trial of linaclotide, 145 mcg, can go up or down on dose depending on response Medications: New linaclotide 145 mcg PO DAILY 30 caps 2RF Telehealth Telehealth Location of provider rendering services: practice address Location of patient: address on file Patient Identification confirmed using: Name, : Yes Telehealth method: voice only Patient verbally consented to treatment: Yes Patient verbally consented to billing insurance company: Yes Patient informed of any privacy concerns related to visit: Yes Minutes spent on Phone/Video with Pt.: 7 Coding Level of Care Code Tele Est Pt Level 3 (61188) Diagnoses GERD (gastroesophageal reflux disease) K21.9
== END 2023-06-13 15:24 | disposition home or self-care (01) ==
LOC: HO.HGI 14:20
PROVIDERS: PCP Nurse Practitioner; Visit Provider Internal Medicine Gastroenterology
DX: K21.9 Gastro-esophageal reflux disease without esophagitis (principal)
CPT/HCPCS: 99213

== ENCOUNTER → 2023-06-13 14:20 | Outpatient (BNVA) | payer OTHER, SELFPAY | PROVIDERS: PCP Nurse Practitioner; Visit Provider Internal Medicine Gastroenterology ==

== ENCOUNTER 2023-07-05 09:41 | Outpatient (REF) | payer OTHER, SELFPAY ==
[2023-07-05 09:52] LABS: MANUAL DIFF FLAG NO
[2023-07-05 10:37] LABS: Basophils Absolute Auto 0.1 X10*3/uL (0.0-0.2); Basophils Percent Auto 0.5 % (0-2); Eosinophils Absolute Auto 0.1 X10*3/uL (0.0-0.4); Eosinophils Percent Auto 1.1 % (0-4); Hematocrit 41.7 % (37.0-47.0); Hemoglobin 13.7 g/dl (12.0-16.0); Imm Gran Abs Auto 0.04 X10*3/uL (0.00-0.03); Imm Gran Pct Auto 0.4 % (0.0-0.4); Lymphocytes Absolute Auto 2.1 X10*3/uL (1.2-4.9); Lymphocytes Percent Auto 21.7 % (20-40); Mean Corpuscular HGB Conc 32.9 g/dl (31.0-35.0); Mean Corpuscular Hemoglobin 29.4 pg (27.0-33.0); Mean Corpuscular Volume 89.5 fL (80.0-98.0); Monocytes Absolute Auto 0.6 X10*3/uL (0.1-1.2); Monocytes Percent Auto 6.2 % (2-11); Neutrophils Absolute Auto 6.8 x10*3/uL (2.0-8.3); Neutrophils Percent Auto 70.1 % (45-73); Platelet Count 339 X10*3/uL (160-400); Red Blood Count 4.66 X10*6/uL (4.20-5.50); White Blood Count 9.7 X10*3/uL (4.8-10.8)
[2023-07-05 12:34] LABS: Free T4 (Free Thyroxine) 1.07 ng/dL (0.71-1.85); TSH reflex Free T4 1.36 uIU/mL (0.32-4.0)
[2023-07-06 04:36] LABS: HBS Num1 19.77 mIU/mL (0-7.99); HBsAGNum1 0.33 S/CO (0.00-0.99); HIV AB/AG Nonreactive (Nonreactive); HIV Num 1 0.05 S/CO (0.00-0.99); Hepatitis A Antibody IgM 0.24 Index (0-0.79); Hepatitis B Core Antibody Nonreactive (Nonreactive); Hepatitis B Surface Antigen Negative (Negative); ~HepC Num1 0.08 S/CO (0.00-0.79); ~Hepatitis A Antibody IgM Nonreactive (Nonreactive); ~Hepatitis B Surface Antibody REACTIVE (Nonreactive); ~Hepatitis C Antibody Nonreactive (Nonreactive)
[2023-07-06 13:48] LABS: RPR Rapid Plasma Reagin NON-REACTIVE (NON-REACTIVE)
== END 2023-07-05 09:42 | disposition home or self-care (01) ==
LOC: HO.LAB 09:41
PROVIDERS: PCP Nurse Practitioner; Visit Provider Nurse Practitioner
DX: Z00.00 Encounter for general adult medical examination without abnormal findings (principal); N93.9 Abnormal uterine and vaginal bleeding, unspecified
CPT/HCPCS: 36415; 84439; 84443; 85025; 86592; 86704; 86706; 86709; 86803; 87340; 87389

== ENCOUNTER 2023-09-02 16:05 | Outpatient (REF) | payer OTHER, SELFPAY ==
[2023-09-12 14:48] LABS: Stone Source KIDNEY STONE
== END 2023-09-02 16:06 | disposition home or self-care (01) ==
LOC: HO.LNP 16:05
PROVIDERS: Visit Provider Nurse Practitioner Family
DX: N20.0 Calculus of kidney (principal)
CPT/HCPCS: 82365; 88300

== ENCOUNTER 2023-09-21 22:13 | Emergency (ER) | payer OTHER, SELFPAY ==
--- NOTE | ~2023-09-21 | CT_ITS ---
EXAMINATION: CT ABDOMEN AND PELVIS WITHOUT CONTRAST CLINICAL INFORMATION: Left flank pain. COMPARISON: 02/25/2023. TECHNIQUE: Multidetector volumetric imaging was performed from the superior aspect of the liver through the pubic symphysis. Sagittal and coronal reformatted images were obtained on the technologist's workstation. This CT examination was performed using dose optimization techniques as appropriate, variously including the following: *Automated exposure control *Adjustment of mA and/or kV according to patient size (this includes techniques or standardized protocols for targeted exams where dose is matched to indication/reason for exam; i.e. extremities or head) *Use of iterative reconstruction technique DLP: 425 mGy-cm FINDINGS: LUNG BASES: The visualized lung bases are unremarkable. LIVER, GALLBLADDER, AND BILIARY TREE: The liver is normal in size, shape, and attenuation. No focal hepatic lesion or biliary ductal dilatation is present. The gallbladder is unremarkable with no evidence of radiopaque gallstones, gallbladder wall thickening, or obvious pericholecystic inflammatory changes. PANCREAS: Unremarkable. SPLEEN: Unremarkable. ADRENAL GLANDS: Unremarkable. KIDNEYS AND URETERS: The kidneys are normal in size, shape, and attenuation. Numerous bilateral renal calculi noted measuring up to 3 mm. There is mild left hydronephrosis and hydroureter extending into the pelvis to the level of a 3 mm distal left ureteric calculus. BLADDER: Unremarkable. GASTROINTESTINAL TRACT: The small and large bowel are unremarkable. The appendix is unremarkable. ABDOMINAL WALL: No significant hernia is appreciated. LYMPH NODES: Normal. VASCULAR: Unremarkable. PELVIC VISCERA: Unremarkable. OSSEOUS STRUCTURES: Unremarkable. CT/CT abdomen pelvis wo IV con IMPRESSION: 1. Mild left hydronephrosis and hydroureter extending into the pelvis to the level of a 3 mm distal left ureteric calculus. 2. Numerous bilateral renal calculi noted measuring up to 3 mm. Fleischner guidelines were followed.
[2023-09-21 22:42] VITALS: BP 120/74; PULSE 94; RESP 20; TEMP 37.2; O2SAT 100; BMI 26.4
--- NOTE | 2023-09-21 23:19 | ED.ABDPAIN ---
HPI - Abdominal Pain General Chief Complaint: Abdominal Pain Stated Complaint: low back and abdominal pain Time Seen by Provider: 09/21/23 22:53 Source: patient Mode of arrival: ambulatory Limitations: no limitations History of Present Illness ED Provider: sarai DAVENPORT narrative: Patient with history of kidney stone usually passes off its own comes here for 4 days of left flank pain radiating to the left upper abdomen associated with nausea and slight blood in the urine patient has frequency and dysuria no fever no chills patient has tried Flomax and prednisone without much relief Related Data Home Medications ?Medication ?Instructions ?Recorded ?Confirmed albuterol sulfate 90 mcg/actuation 2 - 4 puff inhalation Q4H PRN 06/16/22 07/23/22 aerosol inhaler (ProAir HFA) Shortness Of Breath cetirizine 10 mg tablet 10 mg PO DAILY PRN allergies 06/16/22 07/23/22 etonogestrel 68 mg subdermal subdermal 06/16/22 06/16/22 implant (Nexplanon) ibuprofen 400 mg tablet 400 mg PO Q6H PRN moderate pain 06/16/22 07/23/22 fluticasone propionate 44 inhalation 07/27/22 07/27/22 mcg/actuation HFA aerosol inhaler (Flovent HFA) psyllium husk 3.4 gram/5.4 gram 1 tbsp PO BID PRN Constipation 07/27/22 07/23/22 oral powder (Metamucil) inhalational spacing device #1 ea 12/27/22 ([facility] spacer) amitriptyline 10 mg tablet 10 mg PO BEDTIME 06/13/23 beclomethasone dipropionate 40 inhalation 06/13/23 mcg/actuation HFA breath activated aerosol (Qvar RediHaler) naproxen 500 mg tablet 500 mg PO BID 06/13/23 sumatriptan succinate 25 mg tablet mg PO 06/13/23 Previous Rx's ?Medication ?Instructions ?Recorded acetaminophen 325 mg tablet 650 mg (2 x 325 mg) PO Q6H PRN 02/11/21 (Tylenol) fever or pain #10 tabs cholecalciferol (vitamin D3) 25 25 mcg PO DAILY 30 days #30 caps 06/21/22 mcg (1,000 unit) capsule pantoprazole 40 mg tablet,delayed 40 mg PO DAILY #90 tabs 11/22/22 release hyoscyamine sulfate 0.125 mg 0.125 mg PO BID-QID PRN dyspepsia 12/27/22 sublingual tablet (Levsin/SL) #30 tabs sucralfate 100 mg/mL oral 5 ml PO TID #1,000 mL 02/25/23 suspension (Carafate) cetirizine 10 mg tablet (Zyrtec) 5 mg (1/2 x 10 mg) PO BEDTIME PRN 04/19/23 allergy symptoms #10 tabs diphenhydramine HCl 25 mg tablet 25 mg PO BEDTIME PRN allergy 04/19/23 (Benadryl Allergy) symptoms #10 tabs epinephrine 0.15 mg/0.3 mL 0.15 mg (0.3 mL) IM Q30M PRN 04/19/23 injection,auto-injector anaphylaxis #2 ea prednisone 20 mg tablet 20 mg PO DAILY 5 days #5 tabs 04/19/23 linaclotide 145 mcg capsule 145 mcg PO DAILY #30 caps 06/13/23 prednisone 20 mg tablet 20 mg PO DAILY 5 days #5 tabs 09/20/23 pyridoxine (vitamin B6) 50 mg 50 mg PO DAILY 90 days #90 tabs 09/20/23 tablet tamsulosin 0.4 mg capsule 0.4 mg PO DAILY 14 days #14 caps 09/20/23 Allergies Allergy/AdvReac Type Severity Reaction Status Date / Time Seasonal Allergies Allergy Unknown Unknown Verified 09/21/23 22:45 banana Allergy Shortness Verified 09/21/23 22:45 of Breath kiwi Allergy Shortness Verified 09/21/23 22:45 of Breath Review of Systems Review of Systems Yes all other systems are reviewed and are negative PMF Past Medical History Medical History Hyperparathyroidism Hyperbilirubinemia Goiter Vitamin D deficiency Hypercalcemia Bilateral kidney stones Asthma Surgical History Hx of colonoscopy History of esophagogastroduodenoscopy (EGD) History of wisdom tooth extraction Family History Family History Mother No known health problems Father No known health problems Social History Social History Alcohol intake: never Patient Tobacco Use Status: Never used Tobacco Advance Directives: No Advance Directives Information Provided: Yes Do you have a plan to hurt others: No Plan Physical Exam ED Vital Signs: Vital Signs - 24 hr 09/21/23 22:42 09/22/23 00:24 Temperature 98.9 F 98.3 F Pulse Rate 94 84 Respiratory Rate 20 16 Blood Pressure 120/74 120/76 Pulse Oximetry 100 100 Oxygen Delivery Method Room Air Room Air BMI result Body Mass Index 26.4 Appearance: Alert. Oriented X3. Moderate distress. Eyes: No pallor or icterus ENT: Pharynx normal. Oral Mucosa moist Neck: Normal inspection. Neck supple. CVS: Normal heart rate and rhythm. Pulses normal. Respiratory: No respiratory distress. Equal air entry bilateral, no wheezing/rales/rhonchi Abdomen: Soft and mild left upper quadrant tenderness. Bowel sounds are present, no mass palpable, left CVA tenderness Skin: Skin warm and dry. Normal skin color. Normal skin turgor. Extremities: No lower extremity edema. No calf tenderness Neuro: Oriented X 3. Medical Decision Making Lab Data 09/22/23 00:22 09/22/23 00:22 Labs: Lab Results 09/22/23 09/22/23 Range/Units 00:22 00:32 WBC 20.3 H (4.8-10.8) X10*3/uL RBC 4.38 (4.20-5.50) X10*6/uL Hgb 13.1 (12.0-16.0) g/dl Hct 38.5 (37.0-47.0) % MCV 87.9 (80.0-98.0) fL MCH 29.9 (27.0-33.0) pg MCHC 34.0 (31.0-35.0) g/dl RDW 13.0 (11.0-16.0) % Plt Count 314 (160-400) X10*3/uL MPV 9.7 (9.4-12.3) fL Immature Gran % (Auto) 0.6 H (0.0-0.4) % Neut % (Auto) 77.8 H (45-73) % Lymph % (Auto) 12.9 L (20-40) % [place] % (Auto) 8.4 (2-11) % Eos % (Auto) 0.1 (0-4) % Baso % (Auto) 0.2 (0-2) % Lymph # (Auto) 2.6 (1.2-4.9) X10*3/uL [place] # (Auto) 1.7 H (0.1-1.2) X10*3/uL Eos # (Auto) 0.0 (0.0-0.4) X10*3/uL Baso # (Auto) 0.0 (0.0-0.2) X10*3/uL Abs Immat Gran (auto) 0.12 H (0.00-0.03) X10*3/uL Absolute Neuts (auto) 15.8 H (2.0-8.3) x10*3/uL Absolute Nucleated RBC 0.000 (0.0-0.012) X10*3/uL Nucleated RBC % (auto) 0.0 (0.0-0.2) /100WBC Smear Tech's Comments VERIFIED Sodium 140 (135-145) mmol/L Potassium 3.5 (3.3-5.1) mmol/L Chloride 107 (96-108) mmol/L Carbon Dioxide 24 (22-29) mmol/L Anion Gap 13 (12-20) BUN 20 H (9-16) mg/dL Creatinine 1.51 H (0.5-1.4) mg/dL Estim Creat Clear Calc 50.7 Estimated GFR 44 Random Glucose 102 (60-115) mg/dL Calcium 10.0 (8.4-10.2) mg/dL Total Bilirubin 0.8 (0.0-1.0) mg/dL AST 16 (5-31) U/L ALT 9 (0-31) U/L Alkaline Phosphatase 84 (39-117) U/L Total Protein 7.2 (6.5-8.0) g/dL Albumin 4.2 (3.5-5.0) g/dL Beta HCG, Quant < 2 mIU/mL Urine Color Yellow Urine Appearance Clear Urine pH 6.0 (5.0-9.0) Ur Specific [place] >= 1.030 H (1.005-1.025) Urine Protein Trace (Neg-Trace) mg/dL Urine Glucose (UA) Negative (Negative) mg/dL Urine Ketones Trace (Negative) mg/dL Urine Blood Moderate (2+) H (Negative) Urine Nitrite Negative (Negative) Ur Leukocyte Esterase Trace H (Negative) Urine RBC >20 H (0-2) /HPF Urine WBC 6-10 H (0-5) /HPF Ur Squamous Epith Cells 3-5 (0-2) /HPF Urine Bacteria Trace (None Seen) Hyaline Casts 0-2 (0-2) /LPF Medications Administered Discontinued Medications Generic Name Dose Route Start Last Admin Trade Name Freq PRN Reason Stop Dose Admin Sodium Chloride 1,000 mls @ 999 mls/hr 09/21/23 23:28 09/22/23 00:23 Ns IV 09/22/23 00:28 999 mls/hr .Q1H1M ONE Administration Ketorolac Tromethamine 30 mg 09/21/23 23:28 09/22/23 00:23 Ketorolac Tromethamine 30 Mg/Ml Vial IVPUSH 09/21/23 23:29 30 mg ONCE ONE Administration Discharge Plan Discharge Clinical Impression: Renal colic on left side Patient Disposition: Still a Patient Prescriptions: No Action cholecalciferol (vitamin D3) 25 mcg (1,000 unit) capsule 25 mcg PO DAILY 30 Days Qty: 30 11RF pantoprazole 40 mg tablet,delayed release (DR/EC) 40 mg PO DAILY Qty: 90 2RF prednisone 20 mg tablet 20 mg PO DAILY 5 Days Qty: 5 0RF tamsulosin 0.4 mg capsule 0.4 mg PO DAILY 14 Days Qty: 14 0RF pyridoxine (vitamin B6) 50 mg tablet 50 mg PO DAILY 90 Days Qty: 90 1RF acetaminophen [Tylenol] 325 mg tablet 650 mg PO Q6H PRN (Reason: fever or pain) Qty: 10 0RF fluticasone propionate [Flovent HFA] 44 mcg/actuation HFA aerosol inhaler INHALATION Metamucil 3.4 gram/5.4 gram powder 1 tbsp PO BID PRN (Reason: Constipation) Rx Instructions: mix into at least 8 oz of water or juice before administering sucralfate [Carafate] 100 mg/mL suspension 5 ml PO TID Qty: 1000 0RF Rx Instructions: swish in mouth and swallow; use after food/drink prednisone 20 mg tablet 20 mg PO DAILY 5 Days Qty: 5 0RF diphenhydramine HCl [Benadryl Allergy] 25 mg tablet 25 mg PO BEDTIME PRN (Reason: allergy symptoms) Qty: 10 0RF cetirizine [Zyrtec] 10 mg tablet 5 mg PO BEDTIME PRN (Reason: allergy symptoms) Qty: 10 0RF epinephrine 0.15 mg/0.3 mL auto-injector 0.15 mg IM Q30M PRN (Reason: anaphylaxis) Qty: 2 0RF Rx Instructions: do not exceed 12 doses per 24 hrs (DME) Verónica Telles [facility] Spacer See Rx Instructions .ROUTE DIRECTED Qty: 1 Rx Instructions: As directed hyoscyamine sulfate [Levsin/SL] 0.125 mg tablet, sublingual 0.125 mg PO BID-QID PRN (Reason: dyspepsia) Qty: 30 0RF Qvar RediHaler 40 mcg/actuation HFA aerosol breath activated inhalation naproxen 500 mg tablet 500 mg PO BID amitriptyline 10 mg tablet 10 mg PO BEDTIME sumatriptan succinate 25 mg tablet PO linaclotide 145 mcg capsule 145 mcg PO DAILY Qty: 30 2RF cetirizine 10 mg tablet 10 mg PO DAILY PRN (Reason: allergies) albuterol sulfate [ProAir HFA] 90 mcg/actuation HFA aerosol inhaler 2 - 4 puff inhalation Q4H PRN (Reason: Shortness Of Breath) ibuprofen 400 mg tablet 400 mg PO Q6H PRN (Reason: moderate pain) Nexplanon 68 mg implant subdermal Print Language: Amharic
[2023-09-22] VITALS (8 sets, daily range): BP systolic 114–125; BP diastolic 69–78; PULSE 75–85; RESP 13–17; TEMP 36.3–37.1; O2SAT 98–100
[2023-09-22] MEDS: Ketorolac Tromethamine 30 MG/ML VIAL IVPUSH (00:23)
[2023-09-22] MEDS: 0.9 % Sodium Chloride 1,000 ML 999 ML IV ×2 (00:23→02:29)
[2023-09-22 00:33] LABS: Basophils Percent Auto 0.2 % (0-2); Eosinophils Percent Auto 0.1 % (0-4); Hematocrit 38.5 % (37.0-47.0); Hemoglobin 13.1 g/dl (12.0-16.0); Imm Gran Abs Auto 0.12 X10*3/uL (0.00-0.03); Imm Gran Pct Auto 0.6 % (0.0-0.4); Lymphocytes Absolute Auto 2.6 X10*3/uL (1.2-4.9); Lymphocytes Percent Auto 12.9 % (20-40); MANUAL DIFF FLAG SCAN; Mean Corpuscular Hemoglobin 29.9 pg (27.0-33.0); Mean Corpuscular Volume 87.9 fL (80.0-98.0); Mean Platelet Volume 9.7 fL (9.4-12.3); Monocytes Absolute Auto 1.7 X10*3/uL (0.1-1.2); Monocytes Percent Auto 8.4 % (2-11); Neutrophils Absolute Auto 15.8 x10*3/uL (2.0-8.3); Neutrophils Percent Auto 77.8 % (45-73); Platelet Count 314 X10*3/uL (160-400); Red Blood Count 4.38 X10*6/uL (4.20-5.50); SCAN SMEAR FLAG 1; White Blood Count 20.3 X10*3/uL (4.8-10.8)
[2023-09-22 00:39] LABS: Appearance Urine Clear; Color Urine Yellow; Glucose Urine UA Negative (Negative); Leukocyte Esterase Urine Trace (Negative); Nitrite Urine Negative (Negative); Specific Gravity - Urine >= 1.030 (1.005-1.025); UMIC TRIGGER UACC YES; Urine Blood Moderate (2+) (Negative); Urine Ketones Trace mg/dL (Negative); Urine Protein Trace mg/dL (Neg-Trace)
[2023-09-22 00:43] LABS: Bacteria Urine Trace (None Seen); Hyaline Casts Urine 0-2 /LPF (0-2); RBC Urine >20 /HPF (0-2); UACC Culture Trigger YES
[2023-09-22 00:53] LABS: Alanine Aminotransferase 9 U/L (0-31); Albumin Level 4.2 g/dL (3.5-5.0); Alkaline Phosphatase 84 U/L (39-117); Anion Gap 13 (12-20); Aspartate Amino Transferase 16 U/L (5-31); Bilirubin Total 0.8 mg/dL (0.0-1.0); Blood Urea Nitrogen 20 mg/dL (9-16); Carbon Dioxide 24 mmol/L (22-29); Chloride 107 mmol/L (96-108); Creatinine Clr Calc Pharmacy 50.7; Estimated Glomerular Filt Rate 44; Glucose Random 102 mg/dL (60-115); Potassium 3.5 mmol/L (3.3-5.1); Sodium 140 mmol/L (135-145); Total Protein 7.2 g/dL (6.5-8.0)
[2023-09-22 00:58] LABS: HCG Quantitative < 2 mIU/mL
[2023-09-22 01:15] LABS: SLIDE REVIEW VERIFIED
[2023-09-22] MEDS: Morphine Sulfate 4 MG/ML CARTRIDGE IVPUSH (10:11)
[2023-09-22] MEDS: 0.9 % Sodium Chloride 1,000 ML 100 ML IVCONT (10:11)
--- NOTE | 2023-09-22 10:15 | PC.NURSE ---
repeat lab/obtained and sent to lab. pt c/o increase in lower back pain. IVF/medication administered per provider order. effectiveness pending.
[2023-09-22 10:28] LABS: Basophils Percent Auto 0.2 % (0-2); Eosinophils Percent Auto 0.2 % (0-4); Hematocrit 34.6 % (37.0-47.0); Hemoglobin 11.5 g/dl (12.0-16.0); Imm Gran Abs Auto 0.07 X10*3/uL (0.00-0.03); Imm Gran Pct Auto 0.4 % (0.0-0.4); Lymphocytes Absolute Auto 2.4 X10*3/uL (1.2-4.9); Lymphocytes Percent Auto 14.7 % (20-40); MANUAL DIFF FLAG SCAN; Mean Corpuscular HGB Conc 33.2 g/dl (31.0-35.0); Mean Corpuscular Hemoglobin 30.2 pg (27.0-33.0); Mean Corpuscular Volume 90.8 fL (80.0-98.0); Monocytes Absolute Auto 1.5 X10*3/uL (0.1-1.2); Monocytes Percent Auto 8.8 % (2-11); Neutrophils Absolute Auto 12.5 x10*3/uL (2.0-8.3); Neutrophils Percent Auto 75.7 % (45-73); PLT CLUMP 1; Red Blood Count 3.81 X10*6/uL (4.20-5.50); Red Cell Distribution Width 13.1 % (11.0-16.0); SCAN SMEAR FLAG 1
[2023-09-22 10:29] LABS: White Blood Count 16.5 X10*3/uL (4.8-10.8)
[2023-09-22 10:41] LABS: Anion Gap 8 (12-20); Blood Urea Nitrogen 16 mg/dL (9-16); Calcium 9.1 mg/dL (8.4-10.2); Carbon Dioxide 22 mmol/L (22-29); Chloride 114 mmol/L (96-108); Creatinine Clr Calc Pharmacy 58.9; Estimated Glomerular Filt Rate 52; Glucose Random 93 mg/dL (60-115); Potassium 4.2 mmol/L (3.3-5.1); Sodium 140 mmol/L (135-145)
--- NOTE | 2023-09-22 11:11 | PC.NURSE ---
pt unable to tolerate PO at this time. attempted to give pt small amount of water but pt then vomited. pt verbalizing pain level decreased at this time. plan of care ongoing.
[2023-09-22 11:30] LABS: Platelet Count 231 X10*3/uL (160-400)
[2023-09-22 11:31] LABS: Mean Platelet Volume 10.3 fL (9.4-12.3); SLIDE REVIEW VERIFIED
[2023-09-22] MEDS: ondansetron HCL 4 MG/2 ML VIAL IVPUSH (12:06)
[2023-09-22] MEDS: Metoclopramide HCl 10 MG/2 ML VIAL IVPUSH (13:19)
[2023-09-22] MEDS: diphenhydrAMINE HCL 50 MG/ML VIAL 25 MG IVPUSH (13:19)
--- NOTE | 2023-09-22 13:24 | PC.NURSE ---
pt seems to be having an adverse reaction to previous morphine administration as prolonged vomiting is present. documented in allergies section in pt's chart. medication administered per provider order. effectiveness pending. plan of care ongoing.
== END 2023-09-22 14:44 | disposition home or self-care (01) ==
PROVIDERS: Emergency Medicine; Emergency Provider Internal Medicine; PCP Nurse Practitioner
DX: R10.12 Left upper quadrant pain (principal); R31.9 Hematuria, unspecified; R11.2 Nausea with vomiting, unspecified; R30.0 Dysuria; R10.2 Pelvic and perineal pain; R35.0 Frequency of micturition; Z79.899 Other long term (current) drug therapy
CPT/HCPCS: 36415; 74176; 80048; 80053; 81001; 84702; 85025; 87086; 96361; 96374; 96375; 99285; J1200; J1885; J2270; J2405; J2765

== ENCOUNTER 2023-09-24 19:24 | Emergency (ER) | payer OTHER, SELFPAY ==
[2023-09-24 19:29] VITALS: BP 124/70; PULSE 122; O2SAT 98
[2023-09-24 19:38] VITALS: BP 128/77; PULSE 93; RESP 18; TEMP 37; O2SAT 98; BMI 23.3
[2023-09-24 21:07] VITALS: BP 139/90; PULSE 90; RESP 20; TEMP 36.9; O2SAT 97
--- NOTE | 2023-09-24 21:19 | ED.ABDPAIN ---
HPI - Abdominal Pain General Chief Complaint: Abdominal Pain Stated Complaint: renal colic lasting 6 days, increasing in pain Time Seen by Provider: 09/24/23 21:01 Source: patient Mode of arrival: ambulatory Limitations: no limitations History of Present Illness ED Provider: sarai DAVENPORT narrative: Patient is 18 years old with history of kidney stones in the past was seen here on 09/21 for similar pain in the left side diagnose as 3 mm distal left ureteral calculus with mild hydronephrosis patient continued to have pain unable to hold any solids or liquids down vomiting multiple times and still having 10/10 pain in the left flank area no fever no chills no hematuria no urinary complaints in the past patient has always passed the stone never had lithotripsy Related Data Home Medications ?Medication ?Instructions ?Recorded ?Confirmed albuterol sulfate 90 mcg/actuation 2 - 4 puff inhalation Q4H PRN 06/16/22 07/23/22 aerosol inhaler (ProAir HFA) Shortness Of Breath cetirizine 10 mg tablet 10 mg PO DAILY PRN allergies 06/16/22 07/23/22 etonogestrel 68 mg subdermal subdermal 06/16/22 06/16/22 implant (Nexplanon) ibuprofen 400 mg tablet 400 mg PO Q6H PRN moderate pain 06/16/22 07/23/22 fluticasone propionate 44 inhalation 07/27/22 07/27/22 mcg/actuation HFA aerosol inhaler (Flovent HFA) psyllium husk 3.4 gram/5.4 gram 1 tbsp PO BID PRN Constipation 07/27/22 07/23/22 oral powder (Metamucil) inhalational spacing device #1 ea 12/27/22 (Verónica Telles [facility] spacer) amitriptyline 10 mg tablet 10 mg PO BEDTIME 06/13/23 beclomethasone dipropionate 40 inhalation 06/13/23 mcg/actuation HFA breath activated aerosol (Qvar RediHaler) naproxen 500 mg tablet 500 mg PO BID 06/13/23 sumatriptan succinate 25 mg tablet mg PO 06/13/23 Previous Rx's ?Medication ?Instructions ?Recorded acetaminophen 325 mg tablet 650 mg (2 x 325 mg) PO Q6H PRN 02/11/21 (Tylenol) fever or pain #10 tabs cholecalciferol (vitamin D3) 25 25 mcg PO DAILY 30 days #30 caps 06/21/22 mcg (1,000 unit) capsule pantoprazole 40 mg tablet,delayed 40 mg PO DAILY #90 tabs 11/22/22 release hyoscyamine sulfate 0.125 mg 0.125 mg PO BID-QID PRN dyspepsia 12/27/22 sublingual tablet (Levsin/SL) #30 tabs sucralfate 100 mg/mL oral 5 ml PO TID #1,000 mL 02/25/23 suspension (Carafate) cetirizine 10 mg tablet (Zyrtec) 5 mg (1/2 x 10 mg) PO BEDTIME PRN 04/19/23 allergy symptoms #10 tabs diphenhydramine HCl 25 mg tablet 25 mg PO BEDTIME PRN allergy 04/19/23 (Benadryl Allergy) symptoms #10 tabs epinephrine 0.15 mg/0.3 mL 0.15 mg (0.3 mL) IM Q30M PRN 04/19/23 injection,auto-injector anaphylaxis #2 ea prednisone 20 mg tablet 20 mg PO DAILY 5 days #5 tabs 04/19/23 linaclotide 145 mcg capsule 145 mcg PO DAILY #30 caps 06/13/23 prednisone 20 mg tablet 20 mg PO DAILY 5 days #5 tabs 09/20/23 pyridoxine (vitamin B6) 50 mg 50 mg PO DAILY 90 days #90 tabs 09/20/23 tablet tamsulosin 0.4 mg capsule 0.4 mg PO DAILY 14 days #14 caps 09/20/23 hydrocodone 5 mg-acetaminophen 325 1 tab PO Q6H PRN pain #10 tabs 09/22/23 mg tablet ondansetron 4 mg disintegrating 4 mg PO Q8H PRN nausea and 09/22/23 tablet vomiting #20 tabs Allergies Allergy/AdvReac Type Severity Reaction Status Date / Time Seasonal Allergies Allergy Unknown Unknown Verified 09/24/23 19:43 banana Allergy Shortness Verified 09/24/23 19:43 of Breath kiwi Allergy Shortness Verified 09/24/23 19:43 of Breath peanut Allergy Difficulty Verified 09/24/23 19:43 Breathing morphine AdvReac Vomiting Verified 09/24/23 19:43 Review of Systems Review of Systems Yes all other systems are reviewed and are negative PMFSH Past Medical History Medical History Hyperparathyroidism Hyperbilirubinemia Goiter Vitamin D deficiency Hypercalcemia Bilateral kidney stones Asthma Surgical History Hx of colonoscopy History of esophagogastroduodenoscopy (EGD) History of wisdom tooth extraction Family History Family History Mother No known health problems Father No known health problems Social History Social History Alcohol intake: never Patient Tobacco Use Status: Never used Tobacco Advance Directives: No Advance Directives Information Provided: No Do you have a plan to hurt others: No Plan Physical Exam ED Vital Signs: Vital Signs - 24 hr 09/24/23 19:38 09/24/23 21:07 Temperature 98.6 F 98.4 F Pulse Rate 93 90 Respiratory Rate 18 20 Blood Pressure 128/77 139/90 H Pulse Oximetry 98 97 Oxygen Delivery Method Room Air Room Air BMI result Body Mass Index 23.3 Appearance: Alert. Oriented X3. Moderate distress Eyes: No pallor or icterus ENT: Pharynx normal. Oral Mucosa moist Neck: Normal inspection. Neck supple. CVS: Normal heart rate and rhythm. Pulses normal. Respiratory: No respiratory distress. Equal air entry bilateral, no wheezing/rales/rhonchi Abdomen: Soft and nontender. Bowel sounds are present, no mass palpable, left CVA tenderness ++ Skin: Skin warm and dry. Normal skin color. Normal skin turgor. Extremities: No lower extremity edema. No calf tenderness Neuro: Oriented X 3. Medical Decision Making Medical Decision Making MDM Narrative: Patient with 3 mm distal ureteral stone with mild hydronephrosis repeat urine negative for any blood patient felt much better after pain management at this time patient does not have any pain patient advised to follow with urologist tomorrow likely she passed the stone Differential Diagnosis Differential Diagnoses: The differential diagnosis associated with the presentation includes Lab Data MDM Lab Attestation statement: I reviewed the patient's lab results. 09/24/23 21:39 09/24/23 22:53 Labs: Lab Results 09/24/23 09/24/23 Range/Units 21:39 22:53 WBC 17.1 H (4.8-10.8) X10*3/uL RBC 4.04 L (4.20-5.50) X10*6/uL Hgb 12.0 (12.0-16.0) g/dl Hct 35.7 L (37.0-47.0) % MCV 88.4 (80.0-98.0) fL MCH 29.7 (27.0-33.0) pg MCHC 33.6 (31.0-35.0) g/dl RDW 12.6 (11.0-16.0) % Plt Count 326 D (160-400) X10*3/uL MPV 9.8 (9.4-12.3) fL Immature Gran % (Auto) 0.5 H (0.0-0.4) % Neut % (Auto) 77.4 H (45-73) % Lymph % (Auto) 11.6 L (20-40) % [place] % (Auto) 10.2 (2-11) % Eos % (Auto) 0.1 (0-4) % Baso % (Auto) 0.2 (0-2) % Lymph # (Auto) 2.0 (1.2-4.9) X10*3/uL [place] # (Auto) 1.8 H (0.1-1.2) X10*3/uL Eos # (Auto) 0.0 (0.0-0.4) X10*3/uL Baso # (Auto) 0.0 (0.0-0.2) X10*3/uL Abs Immat Gran (auto) 0.08 H (0.00-0.03) X10*3/uL Absolute Neuts (auto) 13.3 H (2.0-8.3) x10*3/uL Absolute Nucleated RBC 0.000 (0.0-0.012) X10*3/uL Nucleated RBC % (auto) 0.0 (0.0-0.2) /100WBC Sodium 138 (135-145) mmol/L Potassium 3.7 (3.3-5.1) mmol/L Chloride 109 H (96-108) mmol/L Carbon Dioxide 20 L (22-29) mmol/L Anion Gap 13 (12-20) BUN 12 (9-16) mg/dL Creatinine 1.22 (0.5-1.4) mg/dL Estim Creat Clear Calc 66.1 Estimated GFR 56 Random Glucose 75 (60-115) mg/dL Calcium 8.4 D (8.4-10.2) mg/dL Total Bilirubin 1.2 H (0.0-1.0) mg/dL AST 18 (5-31) U/L ALT 14 (0-31) U/L Alkaline Phosphatase 64 (39-117) U/L Total Protein 6.4 L (6.5-8.0) g/dL Albumin 3.6 (3.5-5.0) g/dL Urine Color Yellow Urine Appearance Clear Urine pH 6.5 (5.0-9.0) Ur Specific [place] 1.010 (1.005-1.025) Urine Protein Negative (Neg-Trace) mg/dL Urine Glucose (UA) Negative (Negative) mg/dL Urine Ketones Trace (Negative) mg/dL Urine Blood Negative (Negative) Urine Nitrite Negative (Negative) Ur Leukocyte Esterase Negative (Negative) Medications Administered Discontinued Medications Generic Name Dose Route Start Last Admin Trade Name Freq PRN Reason Stop Dose Admin Sodium Chloride 1,000 mls @ 999 mls/hr 09/24/23 21:36 09/24/23 23:35 Ns IV 09/24/23 22:36 Infused .Q1H1M ONE Infusion Ketorolac Tromethamine 30 mg 09/24/23 21:36 09/24/23 22:02 Ketorolac Tromethamine 30 Mg/Ml Vial IVPUSH 09/24/23 21:37 30 mg ONCE ONE Administration Methylprednisolone Sodium Succinate 125 mg 09/24/23 23:22 09/24/23 23:54 Methylprednisolone Sod Succ 125 Mg/2 Ml Vial IVPUSH 09/24/23 23:23 125 mg ONCE ONE Administration Morphine Sulfate 2 mg 09/24/23 21:36 09/24/23 22:02 Morphine Sulfate 4 Mg/Ml Cartridge IVPUSH 09/24/23 21:37 2 mg ONCE ONE Administration Protocol Ondansetron HCl 4 mg 09/24/23 21:36 09/24/23 22:02 Ondansetron Hcl 4 Mg/2 Ml Vial IVPUSH 09/24/23 21:37 4 mg ONCE ONE Administration Discharge Plan Discharge Clinical Impression: Renal colic on left side Patient Disposition: Home, Self-Care Instructions: Renal Colic (ED) Additional Instructions: Drink plenty of fluids Is likely that you have passed the stone Follow up with your urologist if pain continues Pain medicine as prescribed during last visit Prescriptions: No Action cholecalciferol (vitamin D3) 25 mcg (1,000 unit) capsule 25 mcg PO DAILY 30 Days Qty: 30 11RF pantoprazole 40 mg tablet,delayed release (DR/EC) 40 mg PO DAILY Qty: 90 2RF prednisone 20 mg tablet 20 mg PO DAILY 5 Days Qty: 5 0RF tamsulosin 0.4 mg capsule 0.4 mg PO DAILY 14 Days Qty: 14 0RF pyridoxine (vitamin B6) 50 mg tablet 50 mg PO DAILY 90 Days Qty: 90 1RF acetaminophen [Tylenol] 325 mg tablet 650 mg PO Q6H PRN (Reason: fever or pain) Qty: 10 0RF fluticasone propionate [Flovent HFA] 44 mcg/actuation HFA aerosol inhaler INHALATION Metamucil 3.4 gram/5.4 gram powder 1 tbsp PO BID PRN (Reason: Constipation) Rx Instructions: mix into at least 8 oz of water or juice before administering sucralfate [Carafate] 100 mg/mL suspension 5 ml PO TID Qty: 1000 0RF Rx Instructions: swish in mouth and swallow; use after food/drink hydrocodone-acetaminophen 5-325 mg tablet 1 tab PO Q6H PRN (Reason: pain) Qty: 10 0RF Rx Instructions: partial fill okay; Partial Fill upon patient request. ondansetron 4 mg tablet,disintegrating 4 mg PO Q8H PRN (Reason: nausea and vomiting) Qty: 20 0RF prednisone 20 mg tablet 20 mg PO DAILY 5 Days Qty: 5 0RF diphenhydramine HCl [Benadryl Allergy] 25 mg tablet 25 mg PO BEDTIME PRN (Reason: allergy symptoms) Qty: 10 0RF cetirizine [Zyrtec] 10 mg tablet 5 mg PO BEDTIME PRN (Reason: allergy symptoms) Qty: 10 0RF epinephrine 0.15 mg/0.3 mL auto-injector 0.15 mg IM Q30M PRN (Reason: anaphylaxis) Qty: 2 0RF Rx Instructions: do not exceed 12 doses per 24 hrs (DME) Verónica Telles [facility] Spacer See Rx Instructions .ROUTE DIRECTED Qty: 1 Rx Instructions: As directed hyoscyamine sulfate [Levsin/SL] 0.125 mg tablet, sublingual 0.125 mg PO BID-QID PRN (Reason: dyspepsia) Qty: 30 0RF Qvar RediHaler 40 mcg/actuation HFA aerosol breath activated inhalation naproxen 500 mg tablet 500 mg PO BID amitriptyline 10 mg tablet 10 mg PO BEDTIME sumatriptan succinate 25 mg tablet PO linaclotide 145 mcg capsule 145 mcg PO DAILY Qty: 30 2RF cetirizine 10 mg tablet 10 mg PO DAILY PRN (Reason: allergies) albuterol sulfate [ProAir HFA] 90 mcg/actuation HFA aerosol inhaler 2 - 4 puff inhalation Q4H PRN (Reason: Shortness Of Breath) ibuprofen 400 mg tablet 400 mg PO Q6H PRN (Reason: moderate pain) Nexplanon 68 mg implant subdermal Print Language: [place]ian
[2023-09-24 21:52] LABS: Appearance Urine Clear; Color Urine Yellow; Glucose Urine UA Negative (Negative); Leukocyte Esterase Urine Negative (Negative); MANUAL DIFF FLAG NO; Nitrite Urine Negative (Negative); PH 6.5 (5.0-9.0); Urine Blood Negative (Negative); Urine Ketones Trace mg/dL (Negative); Urine Protein Negative (Neg-Trace)
[2023-09-24 21:53] LABS: Basophils Percent Auto 0.2 % (0-2); Eosinophils Percent Auto 0.1 % (0-4); Hematocrit 35.7 % (37.0-47.0); Imm Gran Abs Auto 0.08 X10*3/uL (0.00-0.03); Imm Gran Pct Auto 0.5 % (0.0-0.4); Lymphocytes Percent Auto 11.6 % (20-40); Mean Corpuscular HGB Conc 33.6 g/dl (31.0-35.0); Mean Corpuscular Hemoglobin 29.7 pg (27.0-33.0); Mean Corpuscular Volume 88.4 fL (80.0-98.0); Mean Platelet Volume 9.8 fL (9.4-12.3); Monocytes Absolute Auto 1.8 X10*3/uL (0.1-1.2); Monocytes Percent Auto 10.2 % (2-11); Neutrophils Absolute Auto 13.3 x10*3/uL (2.0-8.3); Neutrophils Percent Auto 77.4 % (45-73); Platelet Count 326 X10*3/uL (160-400); Red Blood Count 4.04 X10*6/uL (4.20-5.50); Red Cell Distribution Width 12.6 % (11.0-16.0); SCAN SMEAR FLAG 1; White Blood Count 17.1 X10*3/uL (4.8-10.8)
[2023-09-24] MEDS: ondansetron HCL 4 MG/2 ML VIAL IVPUSH (22:02)
[2023-09-24] MEDS: 0.9 % Sodium Chloride 1,000 ML 999 ML IV (22:02)
[2023-09-24] MEDS: Ketorolac Tromethamine 30 MG/ML VIAL IVPUSH (22:02)
[2023-09-24] MEDS: Morphine Sulfate 4 MG/ML CARTRIDGE 2 MG IVPUSH (22:02)
[2023-09-24 23:13] LABS: Alanine Aminotransferase 14 U/L (0-31); Albumin Level 3.6 g/dL (3.5-5.0); Alkaline Phosphatase 64 U/L (39-117); Anion Gap 13 (12-20); Aspartate Amino Transferase 18 U/L (5-31); Bilirubin Total 1.2 mg/dL (0.0-1.0); Blood Urea Nitrogen 12 mg/dL (9-16); Calcium 8.4 mg/dL (8.4-10.2); Carbon Dioxide 20 mmol/L (22-29); Chloride 109 mmol/L (96-108); Creatinine Clr Calc Pharmacy 66.1; Estimated Glomerular Filt Rate 56; Glucose Random 75 mg/dL (60-115); Potassium 3.7 mmol/L (3.3-5.1); Sodium 138 mmol/L (135-145); Total Protein 6.4 g/dL (6.5-8.0)
[2023-09-24] MEDS: methylPREDNISolone Sod Succ 125 MG/2 ML VIAL IVPUSH (23:54)
[2023-09-25] VITALS: BP 120/73; PULSE 83; RESP 16; TEMP 36.9; O2SAT 97
[2023-09-25 00:15] VITALS: BP 120/73; PULSE 83; RESP 16; TEMP 36.9; O2SAT 97
== END 2023-09-25 | disposition home or self-care (01) ==
PROVIDERS: Emergency Provider Internal Medicine; PCP Nurse Practitioner
DX: N23 Unspecified renal colic (principal)
CPT/HCPCS: 36415; 80053; 81003; 85025; 96361; 96374; 96375; 99284; J1885; J2270; J2405; J2919

== ENCOUNTER 2023-09-28 15:19 | Outpatient (REF) | payer OTHER, SELFPAY ==
[2023-09-28 18:48] LABS: CT PCR NOT DETECTED (Not Detect.); NG PCR NOT DETECTED (Not Detect.)
[2023-09-29 04:30] LABS: ~HepC Num1 0.06 S/CO (0.00-0.79); ~Hepatitis C Antibody Nonreactive (Nonreactive)
== END 2023-09-28 15:20 | disposition home or self-care (01) ==
LOC: HO.LAB 15:19
PROVIDERS: PCP Nurse Practitioner; Visit Provider Nurse Practitioner
DX: Z00.00 Encounter for general adult medical examination without abnormal findings (principal); N93.9 Abnormal uterine and vaginal bleeding, unspecified
CPT/HCPCS: 36415; 86803; 87491; 87591

== ENCOUNTER 2023-09-28 17:54 | Outpatient (REF) | payer OTHER, SELFPAY | END 2023-09-28 17:55 | disposition home or self-care (01) | LOC: HO.HHCLNP 17:54 | PROVIDERS: Visit Provider Nurse Practitioner Family | DX: R30.0 Dysuria (principal) | CPT/HCPCS: 87086 ==

== ENCOUNTER 2023-12-07 10:11 | Outpatient (AMB) | payer OTHER, SELFPAY ==
--- NOTE | 2023-12-07 10:29 | A.OFFVIS_ITS ---
Intake Visit Reasons: Follow up/[facility] Results Intake Note: Patient presents today for follow up on: Kidney stones and [facility] results Urology Medications: Vitamin B6 Antibiotic Allergy: None Cash Applications Clerk Required: No Accompanied by: Self / Same As Patient Allergies Seasonal Allergies Allergy (Unknown, Verified 12/07/23 10:49) Unknown banana Allergy (Verified 12/07/23 10:49) Shortness of Breath kiwi Allergy (Verified 12/07/23 10:49) Shortness of Breath peanut Allergy (Verified 12/07/23 10:49) Difficulty Breathing morphine Adverse Reaction (Verified 12/07/23 10:49) Vomiting Medication List - Last Reconciled 12/07/23 by JEFE Vail albuterol sulfate 90 mcg/actuation (ProAir HFA) 2 - 4 puffs inhalation Q4H PRN beclomethasone dipropionate 40 mcg/actuation (Qvar RediHaler) inhalation cholecalciferol (vitamin D3) 25 mcg PO DAILY 30 days epinephrine 0.15 mg (0.3 mL) IM Q30M PRN etonogestrel (Nexplanon) subdermal fluticasone propionate 44 mcg/actuation (Flovent HFA) inhalation hyoscyamine sulfate (Levsin/SL) 0.125 mg PO BID-QID PRN inhalational spacing device ([facility] spacer) As directed levocetirizine 5 mg PO DAILY linaclotide 145 mcg PO DAILY ondansetron 4 mg PO Q8H PRN pantoprazole 40 mg PO DAILY psyllium husk (Metamucil) 1 tbsp PO BID PRN pyridoxine (vitamin B6) 50 mg PO DAILY 90 days sucralfate (Carafate) 5 mL PO TID sumatriptan succinate mg PO HPI Comments Details: Stephanie is a very pleasant 18 year old female patient of Dr. Rocha. She has a past medical history of hyperparathyroidism, hyperbilirubinemia, goiter, vitamin-D deficiency, hypercalcemia, nephrolithiasis, and asthma. She presents to the office today for follow-up of her nephrolithiasis. In discussion with the patient today she reports since her last office visit here approximately 1 year ago she seeked emergency room care 2 months ago for left- sided flank pain she had been experiencing at which time a CT of the abdomen was ordered and performed. These results reviewed with the patient today. Mild left hydronephrosis and hydroureter extending into the pelvis into the level of a 3 mm distal left ureteric calculus. Numerous bilateral renal calculi noted measuring up to 3 mm. She reports pain she had been experiencing has since subsided and she has had no bothersome urinary issues or concerns. Recent 24 hour urine collection results reviewed with the patient today. Discussed low citrate and increased sodium values in correlation of these to patient's longstanding history of nephrolithiasis. Discussed improvement in urine volume since last 24 hour urine collection. Discussed importance of decreasing sodium intake and increasing citrate with adding 1 oz of lemon juice to water daily. When asked she denies urinary urgency, urinary frequency, incontinence, nocturia, hematuria, dysuria, changes to urinary stream, flank pain, fever, and or chills. She is happy with her current voiding parameters. She has a strong family history of nephrolithiasis. In office urinalysis results reviewed with the patient today. She otherwise offers no other issues or concerns at this time. BUN-- 04/03 8, 06/03 10, 06/03 11, 07/04 11, 03/05 12, 05/07 11, 10/04 20, 10/04 16, 10/04 12 Creatinine--04/03 0.66, 06/03 0.77, 06/03 0.81, 07/04 0.77, 03/05 0.82, 05/07 0.71, 10/04 1.51, 10/04 1.30, 10/04 1.22 [facility] Medical History Hyperparathyroidism Hyperbilirubinemia Goiter Vitamin D deficiency Hypercalcemia Bilateral kidney stones Asthma Surgical History Hx of colonoscopy History of esophagogastroduodenoscopy (EGD) History of wisdom tooth extraction Family History Mother No known health problems Father No known health problems Social History Alcohol intake: never Patient Tobacco Use Status: Never used Tobacco Review of Systems Const All systems reviewed & are unremarkable except as noted in HPI and below Physical Exam Const General: cooperative, healthy appearing, comfortable, no acute distress, well developed, alert and awake Orientation/consciousness: patient oriented x3 Limitations: no limitations HEENT Head: Yes normal to inspection, Yes normocephalic and Yes atraumatic Ears: hearing grossly normal bilaterally Eyes General: appearance normal, both eyes and all related structures Neck Neck: Yes normal visual inspection and Yes trachea midline Chest Chest palpation & inspection: normal inspection of the chest Resp Effort & Inspection: normal respiratory effort and able to speak in complete sentences Cardio Rate: regular rate GI Inspection: Yes normal to inspection General: Yes no CVA tenderness Back/Spine/Pelvis Back: no CVA tenderness Skin General skin exam: no rashes or lesions noted Neuro General: patient oriented x3 Extrem General: Yes normal to inspection Psych Appearance: grossly normal and well kempt Mental Status: mental status grossly normal Speech and movement: Normal speech and movement present and Clear speech present Affect: normal affect Attitude: cooperative Thought process: Normal thought process present Thought content: Normal thought content present Insight: Fair insight present (Psych) Judgement: Fair judgement present (Psych) Results AMB Urinalysis, Automated UA Leukoctes 0 Judy/uL Last Edit by Steph Felipe on 12/07/23 10:51 UA Nitrite Negative Last Edit by Steph Felipe on 12/07/23 10:51 UA Urobilinogen 0.2 mg/dL Last Edit by Steph Felipe on 12/07/23 10:51 UA Protein 0 mg/dL Last Edit by Steph Felipe on 12/07/23 10:51 UA pH 6.5 Last Edit by Steph Felipe on 12/07/23 10:51 UA Blood 0 Ernesto/uL Last Edit by Steph Felipe on 12/07/23 10:51 UA Specific Romayor 1.015 Last Edit by [place] Felipe on 12/07/23 10:51 UA Ketone Last Edit by Steph Felipe on 12/07/23 10:51 UA Bilirubin 0 mg/dL Last Edit by Steph Felipe on 12/07/23 10:51 UA Glucose 0 mg/dL Last Edit by Steph Felipe on 12/07/23 10:51 Results Reviewed Results Reviewed: Laboratory Last Values Urine pH (Auto) 6.5 12/07/23 10:50 Specific Romayor (Auto) 1.015 12/07/23 10:50 Urine Protein (Auto) 0 mg/dL 12/07/23 10:50 Glucose (UA)(Auto) 0 mg/dL 12/07/23 10:50 Urine Blood (Auto) 0 Ernesto/uL 12/07/23 10:50 Urine Nitrite (Auto) Negative 12/07/23 10:50 Urine Bilirubin (Auto) 0 mg/dL 12/07/23 10:50 Urine Urobilinogen (Auto) 0.2 mg/dL 12/07/23 10:50 Leukocyte Esterase (Auto) 0 Judy/uL 12/07/23 10:50 Date of Service: 09/22/23 EXAMINATION: CT ABDOMEN AND PELVIS WITHOUT CONTRAST FINDINGS: LUNG BASES: The visualized lung bases are unremarkable. LIVER, GALLBLADDER, AND BILIARY TREE: The liver is normal in size, shape, and attenuation. No focal hepatic lesion or biliary ductal dilatation is present. The gallbladder is unremarkable with no evidence of radiopaque gallstones, gallbladder wall thickening, or obvious pericholecystic inflammatory changes. PANCREAS: Unremarkable. SPLEEN: Unremarkable. ADRENAL GLANDS: Unremarkable. KIDNEYS AND URETERS: The kidneys are normal in size, shape, and attenuation. Numerous bilateral renal calculi noted measuring up to 3 mm. There is mild left hydronephrosis and hydroureter extending into the pelvis to the level of a 3 mm distal left ureteric calculus. BLADDER: Unremarkable. GASTROINTESTINAL TRACT: The small and large bowel are unremarkable. The appendix is unremarkable. ABDOMINAL WALL: No significant hernia is appreciated. LYMPH NODES: Normal. VASCULAR: Unremarkable. PELVIC VISCERA: Unremarkable. OSSEOUS STRUCTURES: Unremarkable. IMPRESSION: 1. Mild left hydronephrosis and hydroureter extending into the pelvis to the level of a 3 mm distal left ureteric calculus. 2. Numerous bilateral renal calculi noted measuring up to 3 mm. Assessment & Plan Assessment & Plan (1) Bilateral nephrolithiasis: Code(s): N20.0 - Calculus of kidney Category: Medical Plan In office urinalysis results reviewed with the patient today; as noted above. Recent CT results reviewed with the patient today; as noted above. Recent 24 hour urine collection results reviewed with the patient today; as noted above. Discussed adding 1 oz of lemon juice to water daily. Discussed decrease in sodium intake. Patient currently denies any bothersome urinary issues or concerns. She reports be happy with current voiding parameters. Continue vitamin B6. Discussed obtaining renal ultrasound to ensure resolution of previous hydronephrosis noted on CT. Discussed, educated, and stressed the importance of adequate hydration relation to nephrolithiasis as well as overall health and well-being. Follow-up in 1-3 months with imaging to be completed prior; or sooner with any issues, concerns, and or questions. Orders: Orders AMB Urinalysis Automated Today Z13.9 - Encounter for screening, unspecified US renal BI Today N20.0 - Calculus of kidney Patient Instructions: The patient had an opportunity to ask questions regarding the treatment plan. All questions were answered. Physical exam, labs, and imaging were discussed and reviewed in detail. As well as risks, benefits, and discussion of treatment choices. No major barriers to understanding were identified. The patient expres sed understanding and agreement with the above treatment plan. The patient was made aware they should contact our office by phone for worsening of their current condition, the appearance of new symptoms, or with any questions or concerns. Compliance is encouraged with any medications and follow up testing that is ordered. It is a privilege to be allowed the opportunity to participate in? your urological care.? Again, if you have any questions or concerns If you have any questions or concerns please do not hesitate to contact me. The office is [phone]. This note is constructed using voice recognition software. While every effort has been made to ensure accuracy primary teaching assistant errors may have been included. Yours sincerely, JEFE Vail Coding Level of Care Code Est Pt Level 3 (42984) Diagnoses Bilateral nephrolithiasis N20.0
== END 2023-12-07 11:06 | disposition home or self-care (01) ==
LOC: HO.HUSH 10:11
PROVIDERS: PCP Nurse Practitioner; Visit Provider Nurse Practitioner Family
DX: Z13.9 Encounter for screening, unspecified (principal); N20.0 Calculus of kidney
CPT/HCPCS: 99213

== ENCOUNTER → 2023-12-07 10:11 | Outpatient (BNVA) | payer OTHER, SELFPAY | PROVIDERS: PCP Nurse Practitioner; Visit Provider Nurse Practitioner Family | DX: N20.0 Calculus of kidney (principal) | CPT/HCPCS: 81003 ==

== ENCOUNTER 2024-02-13 12:29 | Outpatient (REF) | payer OTHER, SELFPAY | END 2024-02-13 12:30 | disposition home or self-care (01) | LOC: HO.US 12:29 | PROVIDERS: PCP Nurse Practitioner; Visit Provider Nurse Practitioner Family | DX: N20.0 Calculus of kidney (principal) | CPT/HCPCS: 76775 ==

== ENCOUNTER 2024-03-06 12:44 | Outpatient (AMB) | payer OTHER, SELFPAY ==
--- NOTE | 2024-03-06 12:44 | A.OFFVIS_ITS ---
Intake Visit Reasons: 3 month follow up/ US(set) Intake Note: Patient presents today for follow up on: Kidney stones and ultrasound results Imaging Completed: 02/13/24 Urology Medications: Vitamin B6 Antibiotic Allergy: None Emergency Operator Required: No Accompanied by: Self / Same As Patient Allergies Seasonal Allergies Allergy (Unknown, Verified 03/06/24 13:00) Unknown banana Allergy (Verified 03/06/24 13:00) Shortness of Breath kiwi Allergy (Verified 03/06/24 13:00) Shortness of Breath peanut Allergy (Verified 03/06/24 13:00) Difficulty Breathing morphine Adverse Reaction (Verified 03/06/24 13:00) Vomiting Medication List - Last Reconciled 03/06/24 by CARMELO Vail-JESSY albuterol sulfate 90 mcg/actuation (ProAir HFA) 2 - 4 puffs inhalation Q4H PRN beclomethasone dipropionate 40 mcg/actuation (Qvar RediHaler) inhalation cholecalciferol (vitamin D3) 25 mcg PO DAILY 30 days epinephrine 0.15 mg (0.3 mL) IM Q30M PRN etonogestrel (Nexplanon) subdermal fluticasone propionate 44 mcg/actuation (Flovent HFA) inhalation hyoscyamine sulfate (Levsin/SL) 0.125 mg PO BID-QID PRN inhalational spacing device ([facility] spacer) As directed levocetirizine 5 mg PO DAILY linaclotide 145 mcg PO DAILY ondansetron 4 mg PO Q8H PRN pantoprazole 40 mg PO DAILY psyllium husk (Metamucil) 1 tbsp PO BID PRN pyridoxine (vitamin B6) 50 mg PO DAILY 90 days sucralfate (Carafate) 5 mL PO TID sumatriptan succinate mg PO HPI Comments Details: Stephanie is a very pleasant 18 year old female patient of Dr. Rocha. She has a past medical history of hyperparathyroidism, hyperbilirubinemia, goiter, vitamin-D deficiency, hypercalcemia, nephrolithiasis, and asthma. She is being followed up on today via telehealth for her longstanding history of nephrolithiasis. In discussion with the patient today she reports to be doing and feeling well. She discusses possibly having passed renal calculi sometime last week as she had been experiencing flank pain however this has since subsided. Most recent renal ultrasound results that remain pending were reviewed with the patient today. Multiple small bilateral nonobstructing renal calculi noted. No hydronephrosis noted bilaterally. When asked she does report compliance with vitamin B6 and feels she has increased her consumption of water significantly over the last year. She currently denies any bothersome urinary issues or concerns. She denies urinary urgency, urinary frequency, incontinence, nocturia, hematuria, dysuria, changes to urinary stream, flank pain, fever, and or chills. She is happy with her current voiding parameters. She has a strong family history of nephrolithiasis. Previous workup has included 24 hour urine collection that noted low citrate and increased sodium values. She otherwise offers no other issues or concerns at this time. BUN-- 04/03 8, 06/03 10, 06/03 11, 07/04 11, 03/05 12, 05/07 11, 10/04 20, 10/04 16, 10/04 12 Creatinine--04/03 0.66, 06/03 0.77, 06/03 0.81, 07/04 0.77, 03/05 0.82, 05/07 0.71, 10/04 1.51, 10/04 1.30, 10/04 1.22 [facility] Medical History (Updated 03/06/24 @ 13:02 by Jessica Rosado [facility]) Hyperparathyroidism Hyperbilirubinemia Goiter Vitamin D deficiency Hypercalcemia Asthma Surgical History Hx of colonoscopy History of esophagogastroduodenoscopy (EGD) History of wisdom tooth extraction Family History Mother No known health problems Father No known health problems Social History Alcohol intake: never Patient Tobacco Use Status: Never used Tobacco Review of Systems Const All systems reviewed & are unremarkable except as noted in HPI and below Physical Exam Const General: cooperative Orientation/consciousness: patient oriented x3 Resp Effort & Inspection: able to speak in complete sentences Neuro General: patient oriented x3 Psych Speech and movement: Clear speech present Affect: normal affect Attitude: cooperative Thought process: Normal thought process present Thought content: Normal thought content present Insight: Fair insight present (Psych) Judgement: Fair judgement present (Psych) Telehealth Telehealth Telehealth Platform: [employer] Location of provider rendering services: practice address Location of patient: address on file Patient Identification confirmed using: Name, : Yes Telehealth method: voice only Patient verbally consented to treatment: Yes Patient verbally consented to billing insurance company: Yes Patient informed of any privacy concerns related to visit: Yes Minutes spent on Phone/Video with Pt.: 15 Assessment & Plan Assessment & Plan (1) Bilateral nephrolithiasis: Code(s): N20.0 - Calculus of kidney Category: Medical Plan Recent renal ultrasound results reviewed with the patient today; as noted above. We discussed importance of adequate hydration relation to nephrolithiasis as well as overall health and well-being. Patient currently denies any bothersome urinary issues. We discussed continuing to add 1 oz of lemon juice to water daily. Continue vitamin B6 daily. Will obtain renal ultrasound in 6 months for surveillance monitoring. Follow-up in 6 months with imaging to be completed prior; or sooner with any issues, concerns, and or questions. Orders: Orders US renal BI 6 Months N20.0 - Calculus of kidney Patient Instructions: The patient had an opportunity to ask questions regarding the treatment plan. All questions were answered. Physical exam, labs, and imaging were discussed and reviewed in detail. As well as risks, benefits, and discussion of treatment choices. No major barriers to understanding were identified. The patient expressed understanding and agreement with the above treatment plan. The patient was made aware they should contact our office by phone for worsening of their current condition, the appearance of new symptoms, or with any questions or concerns. Compliance is encouraged with any medications and follow up testing that is ordered. It is a privilege to be allowed the opportunity to participate in? your urological care.? Again, if you have any questions or concerns If you have any questions or concerns please do not hesitate to contact me. The office is [phone]. This note is constructed using voice recognition software. While every effort has been made to ensure accuracy inspector eyeglass errors may have been included. Yours sincerely, JEFE Vail Coding Level of Care Code Tele Est Pt Level 3 (89586) Diagnoses Bilateral nephrolithiasis N20.0
== END 2024-03-06 13:04 | disposition home or self-care (01) ==
LOC: HO.HUSH 12:44
PROVIDERS: PCP Nurse Practitioner; Visit Provider Nurse Practitioner Family
DX: N20.0 Calculus of kidney (principal)
CPT/HCPCS: 99213

== ENCOUNTER → 2024-03-06 12:44 | Outpatient (BNVA) | payer OTHER, SELFPAY | PROVIDERS: PCP Nurse Practitioner; Visit Provider Nurse Practitioner Family ==

== ENCOUNTER 2024-06-09 14:01 | Outpatient (REF) | payer OTHER, SELFPAY ==
[2024-06-09 15:45] LABS: MANUAL DIFF FLAG NO
[2024-06-09 15:59] LABS: Basophils Absolute Auto 0.1 X10*3/uL (0.0-0.2); Basophils Percent Auto 0.5 % (0-2); Eosinophils Absolute Auto 0.1 X10*3/uL (0.0-0.4); Eosinophils Percent Auto 0.7 % (0-4); Hematocrit 39.7 % (37.0-47.0); Hemoglobin 13.1 g/dl (12.0-16.0); Imm Gran Abs Auto 0.04 X10*3/uL (0.00-0.03); Imm Gran Pct Auto 0.4 % (0.0-0.4); Lymphocytes Absolute Auto 2.1 X10*3/uL (1.2-4.9); Lymphocytes Percent Auto 19.2 % (20-40); Mean Corpuscular Hemoglobin 29.2 pg (27.0-33.0); Mean Corpuscular Volume 88.6 fL (80.0-98.0); Monocytes Absolute Auto 0.8 X10*3/uL (0.1-1.2); Monocytes Percent Auto 7.5 % (2-11); Neutrophils Absolute Auto 7.9 x10*3/uL (2.0-8.3); Neutrophils Percent Auto 71.7 % (45-73); Platelet Count 340 X10*3/uL (160-400); Red Blood Count 4.48 X10*6/uL (4.20-5.50); Red Cell Distribution Width 13.2 % (11.0-16.0); White Blood Count 10.9 X10*3/uL (4.8-10.8)
[2024-06-09 16:14] LABS: Anion Gap 10 (12-20); Blood Urea Nitrogen 13 mg/dL (9-16); Calcium 9.8 mg/dL (8.4-10.2); Carbon Dioxide 24 mmol/L (22-29); Chloride 111 mmol/L (96-108); Estimated Glomerular Filt Rate > 60; Glucose Random 90 mg/dL (60-115); Potassium 3.7 mmol/L (3.3-5.1); Sodium 141 mmol/L (135-145)
[2024-06-09 16:15] LABS: Creatinine Urine 207.59 mg/dL; Microalbum/Creatinine Ratio Ur 5.2 ug/mg cr (<30)
[2024-06-09 16:33] LABS: TSH reflex Free T4 0.77 uIU/mL (0.32-4.0)
== END 2024-06-09 14:02 | disposition home or self-care (01) ==
LOC: HO.HMGCLDS 14:01
PROVIDERS: PCP Nurse Practitioner; Visit Provider Nurse Practitioner
DX: R00.2 Palpitations (principal); R03.0 Elevated blood-pressure reading, without diagnosis of hypertension
CPT/HCPCS: 36415; 80048; 82043; 82570; 84443; 85025

== ENCOUNTER 2024-06-18 10:50 | Outpatient (AMB) | payer OTHER, SELFPAY ==
--- NOTE | 2024-06-18 10:50 | A.OFFVIS_ITS ---
Intake Visit Reasons: 1 year follow up Intake Note: Stephanie presents as a video call today 1 year follow up. CC: States that she only has issues with occassional constipation. Allergies Seasonal Allergies Allergy (Unknown, Verified 03/06/24 13:00) Unknown banana Allergy (Verified 03/06/24 13:00) Shortness of Breath kiwi Allergy (Verified 03/06/24 13:00) Shortness of Breath peanut Allergy (Verified 03/06/24 13:00) Difficulty Breathing morphine Adverse Reaction (Verified 03/06/24 13:00) Vomiting HPI HPI 1 year follow up: Details: 19 yr old patient being seen for assessment for abn bowel habits, raised bili on lab being called for f/u RECAP: she has bouts of diarrhea but also issues with constipation she has to put pressure to pass stools, can be helpful she has cramping and burning pain in the lower abdo, when she passes the stool it relieves the pain, can go into the back she has pain and pressure in the rectum going on for 2 months urine volume and abn pressure sensation periods are less due to nexplanon she has nausea and vomiting, if the pain is too much she has joint pains in hands and knees, better as day progresses she has reflux sx as well she has fatigue she loves fruits, maybe not so good with veg --has food allergies IMAGING: CT 05/2022: tiny kidney stones US: GB polyps, small, right kidney cyst mesenteric US_ increased velocities ?MALS CTA_ possible celiac compression but not classic CTA: 02/25/23- normal areteries, b/l renal stones EGD/colo:2022 Endoscopy Findings: possible gastroparesis gastric pallor, possible extrinsic compression Colonoscopy Findings: internal hemorrhoids possible colonic inertia Path: increased eos in colon and esophagus INTERIM: she has stabbing sensation close to umbilical area she feels better after using bathroom linaclotide works well for constipation takes it every 2-3 d still taking pantoprazole no blood in stool A/P: 1/ GERD--controlled 2/ constipation- probable slow transit constipation --good response, to linaclotide- she did have eosinophils on last bx-uncertain significance Plan: 1/ Cont with PPI--take Mv and D supplement 1000 units daily 2/ cont linaclotide, 145 mcg, 3/ rept colo given pain and prior hx of eos see if resolved --if not might use mesalamaine, check fecal lactoferrin same time--[facility] Medical History (Updated 03/06/24 @ 13:02 by PEDRO Vail) Hyperparathyroidism Hyperbilirubinemia Goiter Vitamin D deficiency Hypercalcemia Asthma Surgical History Hx of colonoscopy History of esophagogastroduodenoscopy (EGD) History of wisdom tooth extraction Family History Mother No known health problems Father No known health problems Social History Alcohol intake: never Patient Tobacco Use Status: Never used Tobacco Telehealth Telehealth Telehealth Platform: Telephone Location of provider rendering services: practice address Location of patient: address on file Patient Identification confirmed using: Name, : Yes Telehealth method: voice only Patient verbally consented to treatment: Yes Patient verbally consented to billing insurance company: Yes Minutes spent on Phone/Video with Pt.: 6 Assessment & Plan Assessment & Plan (1) Suprapubic cramping: Code(s): R10.2 - Pelvic and perineal pain Category: Medical Plan: as above Coding Level of Care Code Tele Est Pt Level 3 (68835) Diagnoses Suprapubic cramping R10.2
--- OUTSIDE RECORDS SUMMARY | 2024-06-18 12:53 | XMS_ITS | Clinical Summary ---
Author Organization [facility] Address [address] [place] [address] Phone Care Team Providers Care Grease And Tallow Pumper Name Role Phone Westley Bailey MD Primary Care Provider Unavai lable Allergies No known active allergies Medications cetirizine (ZyrTEC) 10 MG tablet Take 10 mg by mouth 1 (one) time each day Active ibuprofen (ADVIL,MOTRIN) 400 MG tablet Take 400 mg by mouth every 6 (six) hours if needed for mild pain Active fluticasone HFA (FLOVENT HFA) 44 MCG/ACT inhaler Inhale 1 puff 2 (two) times a day Rinse mouth with water after use to reduce aftertaste and incidence of candidiasis. Do not swallow. Active polyethylene glycol (GLYCOLAX) 17 GM/SCOOP powder Take 17 g by mouth 1 (one) time each day Active etonogestrel-et hinyl estradiol (NUVARING) 0.12-0.015 MG/24HR vaginal ring Insert 1 each into the vagina every 28 (twenty-eight) days Insert vaginally and leave in place for 3 consecutive weeks, then remove for 1 week. Active Etonogestrel 68 MG implant Inject 68 mg under the skin Active Active Problems Problem Noted Date Diagnosed Date Nephrolithiasis 02/10/2021 Family History Medical History Relation Comments Cancer Maternal Grandmother Nephrolithiasis Maternal Grandmother Relation Status Comments Maternal Grandmother Social History Tobacco Use Types Packs/Day Years Used Date Smoking Tobacco: Never Smokeless Tobacco: Never Alcohol Use Standard Drinks/Week Comments Never 0 (1 standard drink = 0.6 oz pur e alcohol) Comments Unknown Sex and Gender Information Value Date Recorded Sex Assigned at Not on file Legal Sex Female 11:00 AM EDT Gender Identity Not on file Sexual Orientation Not on file Last Filed Vital Signs Vital Sign Reading Time Taken Comments Blood Pressure 112/60 01/01/2021 10:16 AM EDT Pulse 86 01/01/2021 10:16 AM EDT Temperature - - Respiratory Rate - - Oxygen Saturation 100% 01/01/2021 10:16 AM EDT Inhaled Oxygen Concentration - - Weight 60.5 kg (133 lb 6.4 oz) 01/01/2021 10:16 AM EDT Height 154.9 cm (5' 1 ) 01/01/2021 10:16 AM EDT Body Mass Index 25.21 01/01/2021 10:16 AM EDT Plan of Treatment Health Maintenance Due Date Last Done Comments Hepatitis B Vaccine (1 of 3 - 19+ 3-dose series) 2022 Influenza Vaccine (#1) 2023 Pneumococcal Vaccine: Pediat rics (0 to 5 Years) and At-Risk Patients (6 to 64 Years) Aged Out No longer [facility] based on patient's age to complete this topic Insurance [place] Care Teams Grease And Tallow Pumper Relationship Specialty Start Date End Date Westley Bailey MD PCP - General Pediatrics 10/31/20
--- OUTSIDE RECORDS SUMMARY | 2024-06-18 12:53 | XMS_ITS | Encounter Summary ---
Author Organization [employer] Address [address] [place] [address] [address] [place] [address] Care Team Providers Care Residential Instructor Name Role Phone Mago Rocha NP Primary Care Provider [phone] Reason for Visit * Reason Comments Blood Pressure Check Encounter Details Date Type Department Care Team (Latest Contact Info) Description 06/13/2024 11:30 AM EDT Clinical Support [facility] [address] [place] [address] Lauren Eisenberg, RN [address] [place] [address] Elevated blood pressure reading without diagnosis of hypertension Social History Tobacco Use Types Packs/Day Years Used Date Smoking Tobacco: Never Passive Smoke Exposure: Never Smokeless Tobacco: Never Tobacco Cessation:Counseling Given: Not Answered Alcohol Use Standard Drinks/Week Comments Never 0 (1 standard drink = 0.6 oz pur e alcohol) Depression Answer Date Recorded Patient Health Questionnaire-9 Score 3 06/06/2024 Patient Health Questionnaire-9 Score 3 06/06/2024 Last PHQ-9: Questionnaire Data Not on file 0 06/06/2024 Housing Stability Answer Date Recorded What is your housing situation today? I do not have housing (Staying with others, in a hotel, in a penitentiary, living outside on the street, on a beach, in a car, or in a park 07/20/[address] you li ve. Do you have problems with any of the following? None of the above 07/20/2023 Food Insecurity Answer Date Recorded Within the past 12 months, y ou worried that your food would run out before you got money to buy more: Never True 07/20/2023 Within the past 12 months,th e food you bought just didn't last and you didn't have enough money to get more: Never True 10/2023 Transportation Answer Date Recorded In the past 12 months, has l ack of transportation kept you from medical appts, meetings, work or from getting things needed for daily living? No 07/20/2023 Utilities Answer Date Recorded In the past 12 months, has t he [employer], gas, oil or water company threatened to shut off services in your home? I am not sure 07/20/2023 Depression Answer Date Recorded Patient Health Questionnaire-2 Score 0 06/06/2024 Comments No Sex and Gender Information Value Date Recorded Sex Assigned at Female 01/11/2022 10:17 AM EDT Legal Sex Female 10:17 AM EDT Gender Identity Female 01/11/2022 10:17 AM EDT Sexual Orientation Straight 01/11/2022 10 :17 AM EDT documented as of this encounter Last Filed Vital Signs Vital Sign Reading Time Taken Comments Blood Pressure 124/78 06/13/2024 11:55 AM EDT Pulse 102 06/13/2024 11:54 AM EDT Temperature - - Respiratory Rate 18 06/13/2024 11:54 AM EDT Oxygen Saturation 99% 06/13/2024 11:54 AM EDT Room air Inhaled Oxygen Concentration - - Weight 65.4 kg (144 lb 3.2 oz) 06/13/2024 11:54 AM EDT Height - - Body Mass Index 27.25 06/06/2024 10:43 AM EDT documented in this encounter Progress Notes * Lauren Eisenberg, LIO - 06/13/2024 11:30 AM EDT S: Pt here for nurse visit for BP Check. Pt reports that she exercised on a treadmill and lifting weights 4 days a week. States she has recently been changing her diet to include more home cooked food. Pt denies, chest pain, sob, dizziness and visual changes today. Pt c/o 06/21 slight headache. Reports that she frequently experiences headaches. States that headaches are improved with a quiet, darkroom and worsened by bright rooms with lost of activity. Pt states she does not smoke or drink alcohol. Reports home systolic readings of 133, 140 O: Pt not currently rx any meds for htn. BP elevated at last office visit at 141/83. A: BP today wnl 122/82 left arm, sitting; 124/78 right arm, sitting; P 102; R 18; O2 99% on room air P: Pt advised to take medications as rx. Pt encouraged to adhere to low sodium diet. Pt encouraged to increase amount and frequency of exercise. Pt reminded of upcoming f/u scheduled with pcp. Pt agrees to discuss headaches with pcp at that time. Agrees to call clinic or come to [facility] prn symptoms. documented in this encounter Plan of Treatment Upcoming Encounters Date Type Department Care Team (Late st Contact Info) Description 07/11/2024 9:15 AM EDT Procedure Visit [facility] [address] [place], [place] [phone] Marilu Dunne CNP [address] [place], [place] [phone] documented as of this encounter Visit Diagnoses Diagnosis Elevated blood pressure reading without diagnosis of hypertension documented in this encounter Additional Health Concerns Assessment Noted Time PHQ-9 Depression Total Score: 3 06/07/19 25 11:33 AM EDT documented as of this encounter Care Teams Residential Instructor Relationship Specialty Start Date End Date Mago Rocha NP [address] [place], [place] [phone] PCP - General Family Medicine 01/06/23 documented as of this encounter
--- OUTSIDE RECORDS SUMMARY | 2024-06-18 12:53 | XMS_ITS | Encounter Summary ---
Author Organization [employer] Address [address] [place] [address] [address]t [place] [address] Care Team Providers Care Testing Engineer Name Role Phone Teresatony Mago VINES Primary Care Provider [phone] Encounter Details Date Type Department Care Team (Latest Contact Info) Description 06/13/2024 Travel Social History Tobacco Use Types Packs/Day Years Used Date Smoking Tobacco: Never Passive Smoke Exposure: Never Smokeless Tobacco: Never Alcohol Use Standard [...] with others, in a hotel, in a skilled nursing, living outside on the street, on a [...] the past 12 months, has t he electric, gas, oil or water company threatened to [...] AM EDT documented as of this encounter Plan of Treatment Upcoming Encounters Date Type Department Care Team (Late st Contact Info) Description 07/11/2024 9:15 AM EDT Procedure Visit [facility] [address] [place], [place] [phone] Marilu Dunne CNP [address] [place], [place] [phone] documented as of this encounter Visit Diagnoses Not on filedocumented in this encounter Additional Health Concerns Assessment Noted Time PHQ-9 Depression Total Score: 3 06/07/19 25 11:33 AM EDT documented as of this encounter Care Teams Testing Engineer Relationship Specialty Start Date End Date Mago Rocha NP [address] [place] [address] PCP - General Family Medicine 01/06/23 documented as of this encounter
--- OUTSIDE RECORDS SUMMARY | 2024-06-18 12:54 | XMS_ITS | Encounter Summary ---
Author Organization [employer] Address [address] [place] [address] [address] [place] [address] Care Team Providers Care Bottom Ironer Name Role Phone Mago Rocha NP Primary Care Provider [phone] Reason for Visit * Reason Comments Med Change Request Encounter Details Date Type Department Care Team (Late st Contact Info) Description 06/03/2023 Refill [facility] [address] [place] [address] Mago Rocha NP [address] [place] [address] Mild persistent asthma without complication Social History Tobacco Use Types Packs/Day Years Used Date Smoking Tobacco: Never Passive Smoke Exposure: Never Smokeless Tobacco: Never Alcohol Use Standard Drinks/Week Comments Never 0 (1 standard drink = 0.6 oz pur e alcohol) Depression Answer Date Recorded Patient Health Questionnaire-9 Score 0 06/03/2023 Patient Health Questionnaire-9 Score 0 06/03/2023 Last PHQ-9: Questionnaire Data Not on file 0 06/03/2023 Depression Answer Date Recorded Patient Health Questionnaire-2 Score 0 06/03/2023 Comments No Sex and Gender Information Value [...] Description 07/11/2024 9:15 AM EDT Procedure Visit [facility] [address] [place] [address] Marilu Dunne CNP [address] [place] [address] documented as of this encounter Visit Diagnoses Diagnosis Mild persistent asthma without complication documented in this encounter Additional Health Concerns Assessment Noted Time PHQ-9 Depression Total Score: 0 06/03/19 10:49 AM EDT documented as of this encounter Care Teams Bottom Ironer Relationship Specialty Start Date End Date Mago Rocha NP [address] [place] [address] PCP - General Family Medicine 01/06/23 documented as of this encounter
--- OUTSIDE RECORDS SUMMARY | 2024-06-18 12:54 | XMS_ITS | Encounter Summary ---
Author Organization [employer] Address [address] [place] [address] 7 [place] [address] Care Team Providers Care Fabricator Artificial Breast Name Role Phone Mago Rocha NP Primary Care Provider [phone] Reason for Visit * Reason Onset Date Comments Med Refill 11/01/2023 Encounter Details Date Type Department Care Team (Late st Contact Info) Description 11/01/2023 Refill [facility] [address] [place] [address] Mago Rocha NP [address] [place] [address] Seasonal allergies Social History Tobacco Use Types Packs/Day Years Used Date Smoking Tobacco: Never Passive Smoke Exposure: Never Smokeless Tobacco: Never Alcohol Use Standard Drinks/Week Comments Never 0 (1 standard drink = 0.6 oz pur e alcohol) Depression Answer Date Recorded Patient Health Questionnaire-9 Score 0 06/03/2023 Patient Health Questionnaire-9 Score 0 06/03/2023 Last PHQ-9: Questionnaire Data Not on file 0 06/03/2023 Housing Stability Answer Date Recorded What is your housing situation today? I do not have housing (Staying with others, in a hotel, in a detention, living outside on the street, on a [...] Description 07/11/2024 9:15 AM EDT Procedure Visit [facility] [address] [place], [place] [phone] Marilu Dunne CNP [address] [place], [place] [phone] documented as of this encounter Visit Diagnoses Diagnosis Seasonal allergies Allergic rhinitis, cause unspecified documented in this encounter Additional Health Concerns Assessment Noted Time PHQ-9 Depression Total Score: 0 06/03/19 24 10:49 AM EDT documented as of this encounter Care Teams Fabricator Artificial Breast Relationship Specialty Start Date End Date Mago Rocha NP [address] [place], [place] [phone] PCP - General Family Medicine 01/06/23 documented as of this encounter
--- OUTSIDE RECORDS SUMMARY | 2024-06-18 12:54 | XMS_ITS | Encounter Summary ---
Author Organization [employer] Address [address] [place] [address] 7 [place] [address] Care Team Providers Care Usability Strategist Name Role Phone Mago Rocha NP Primary Care Provider [phone] Reason for Visit * Reason Onset Date Comments Appointment Request 05/31/2024 Encounter Details Date Type Department Care Team ([facility] st Contact Info) Description 05/31/2024 Telephone [facility] [address] [place] [address] Mago Rocha NP [address] [place] [address] Appointment Request Social History Tobacco Use Types Packs/Day Years [...] with others, in a hotel, in a longterm, living outside on the street, on a [...] AM EDT documented as of this encounter Miscellaneous Notes * Telephone Encounter - Red العراقي - 05/31/2024 2:12 PM EDT Tc from pt requesting appointment for Physical , credit underwriter advised no sooner availability. documented in this encounter Plan of Treatment Upcoming Encounters Date Type Department Care Team (Late st Contact Info) Description 07/11/2024 9:15 AM EDT Procedure Visit [facility] [address] [place] [address] Marilu Dunne CNP [address] [place] [address] documented as of this encounter Visit Diagnoses Not on filedocumented in this encounter Additional Health Concerns Assessment Noted Time PHQ-9 Depression Total Score: 0 06/03/19 24 10:49 AM EDT documented as of this encounter Care Teams Usability Strategist Relationship Specialty Start Date End Date Mago Rocha NP [address] [place] [address] PCP - General Family Medicine 01/06/23 documented as of this encounter
--- OUTSIDE RECORDS SUMMARY | 2024-06-18 12:54 | XMS_ITS | Encounter Summary ---
Author Organization [employer] Address [address] [place] [address] 7 [place] [address] Care Team Providers Care Taper Operator Name Role Phone Mago Rocha NP Primary Care Provider [phone] Reason for Visit * Reason Onset Date Comments Referral 06/01/2024 Encounter Details Date Type Department Care Team (Late st Contact Info) Description 06/01/2024 Telephone [facility] [address] [place] [address] Mago Rocha NP [address] [place] [address] Referral Social History Tobacco Use Types Packs/Day Years [...] with others, in a hotel, in a chcf, living outside on the street, on a [...] encounter Miscellaneous Notes * Telephone Encounter - Wing Jose RN - 06/01/2024 11:46 AM EDT Tc to pt regarding pulmonology referral request. Pt reported having an asthma attack on 05/27 that was triggered from her mother cleaning the basement. Stated she had to take her albuterol twice for her chest tightness to improve. Did not go to the ED. Has not used albuterol since then but when she takes her Symbicort every day she has been having the symptom of shaking that lasts a few hours. Denies any coughing episodes or shortness of breath since most recent asthma attack. Gave appt with PCP for 06/06 at 10:30 am. Advised pt to use albuterol as needed for shortness of breath and to go to ED if albuterol does not improve symptoms. Pt verbalized understanding and agreement with plan. * Telephone Encounter - Claytonelisafranco العراقي - 06/01/2024 11:00 AM EDT Tc from pt requesting referral for forensic document examiner, pt requested to go to [facility] Specialist : Linter Operator Provider : Erwin Roland MD Location : [facility] documented in this encounter Plan of Treatment Upcoming Encounters Date Type Department Care Team (Late st Contact Info) Description 07/11/2024 9:15 AM EDT Procedure Visit [facility] [address] [place], [place] [phone] Marilu Dunne CNP [address] [place] [address] documented as of this encounter Visit Diagnoses Not on filedocumented in this encounter Additional Health Concerns Assessment Noted Time PHQ-9 Depression Total Score: 0 06/03/19 24 10:49 AM EDT documented as of this encounter Care Teams Taper Operator Relationship Specialty Start Date End Date Mago Rocha NP [address] [place], [place] [phone] PCP - General Family Medicine 01/06/23 documented as of this encounter
--- OUTSIDE RECORDS SUMMARY | 2024-06-18 12:54 | XMS_ITS | Clinical Summary ---
Author Organization [employer] Address [address] [place] [address] [address] [place] [address] Care Team Providers Care Child Care Supervisor Name Role Phone Mago Rocha NP Primary Care Provider [phone] Allergies Active Allergy Reactions Criticality Noted Date Comments Fruit Extracts 06/15/2019 Other reaction(s): multiple fruits, rash, itching only Peanut-Containing Drug Products Angioedema 2023 Medications * This document contains information received from the source organization and may not represent a complete record from that organization. ibuprofen 400 MG tabletIndications :Lower abdominal pain Take 1 tablet (400 mg) by mouth every 6 (six) hours if needed for moderate pain or fever for up to 30 doses. 30 tablet 03/12/20 22 Active D3-1000 25 MCG (1000 UT) capsule Take 25 mcg by mouth in the morning. 06/22/19 23 Active etonogestrel-elut ing (Nexplanon) 68 mg contraceptive implant Placed 09/201809/22/19 19 Active Ventolin HFA 108 (90 Base) MCG/ACT inhaler INHALE 2 PUFFS EVERY 4 HOURS IF NEEDED FOR WHEEZING. 18 g 10/09/19 23 Active amitriptyline (Elavil) 10 MG tabletIndications :Migraine without aura, not refractory Take 1 tablet (10 mg) by mouth at bedtime. 30 tablet 2 06/03/19 24 Active SUMAtriptan (Imitrex) 25 MG tabletIndications :Migraine without aura, not refractory Take 1 tablet at onset of headache with naproxen. May repeat dose once in 2 hours if no relief. Do not exceed 2 doses in 24 hours. 9 tablet 1 06/03/19 24 Active naproxen (Naprosyn) 500 MG tabletIndications :Migraine without aura, not refractory Take 1 tablet at onset of headache with imitrex. Do not take more than 2 tablets daily. 60 tablet 1 06/03/19 24 Active Linzess 145 MCG capsule 06/13/19 24 Active pantoprazole (ProtoNix) 40 MG EC tablet 02/25/20 23 Active predniSONE (Deltasone) 20 MG tablet 04/20/19 24 Active levocetirizine (Xyzal Allergy 24HR) 5 MG tabletIndications :Seasonal allergies Take 1 tablet (5 mg) by mouth in the evening. 30 tablet 11 07/20/19 24 025 Active budesonide-formot evonne (Symbicort) 80-4.5 MCG/ACT inhalerIndication s:Mild persistent asthma without complication Inhale 2 puffs in the morning and at bedtime. Rinse mouth with water after use to reduce after taste and incidence of candidiasis. Do not swallow. 1 each 1 12/23/19 24 025 Active albuterol (2.5 MG/3ML) 0.083% nebulizer solution Take 3 mL (2.5 mg) by nebulization every 4 (four) hours if needed for wheezing or shortness of breath. 75 mL 12/23/19 24 025 Active pyridoxine (Vitamin B-6) 25 MG tablet 50 mg. 07/07/19 23 Active Active Problems Problem Noted Date Diagnosed Date Anxiety 06/13/2024 Muscle spasm 09/28/2023 Dysuria 09/28/2023 Assessment & Plan (09/28/2023 3:56 PM EDT): Culture sent Endometriosis 09/27/2023 Goiter 09/27/2023 Hyperbilirubinemia 09/27/2023 Hypercalcemia 09/27/2023 Hyperparathyroidism 09/27/2023 Patellofemoral syndrome of right knee 09/27/2023 Suprapubic pain 09/27/2023 Vitamin D deficiency 09/27/2023 Encounter for female control 06/03/2023 Assessment & Plan (06/07/2023 10:22 AM EDT): -current nexplanon implant outdated -negative POCT preg test -old nexplanon removed and new one replaced -infection monitoring measures advised -advised back up method for 7 days -reviewed FDA vs evidence based duration of use. May use current implant for up to 5 years if happy with method. Annual physical exam 06/03/2023 Assessment & Plan (06/03/2023 5:21 PM EDT): -age appropriate screening and immunizations up to date (STI screening) -low cardiovascular risk -mental health screening negative -healthy social behaviors encouraged -anticipatory guidance reviewed: diet, exercise Abnormal uterine bleeding 03/30/2023 Assessment & Plan (03/30/2023 1:42 PM EST): -abnormal uterine bleeding may be due to hormone irregularities r/t outdate nexplanon -POCT Hcg and urinalysis negative -educated to use back up contraception. 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 04/22/2022 Assessment & Plan (09/28/2023 3:56 PM EDT): May trial prn muscle relaxor for muscle spasms Has follow up with urology Migraine without aura, not refractory 04/22/2022 Assessment & Plan (10/10/2023 12:29 PM EDT): -stable on daily use of amitriptyline 10 mg -advised increased fluid intake, continued avoidance of triggers, adequate sleep -ED headache precautions reviewed -follow-up in 6 mo or sooner if worsening, vomiting associated with headaches, not improving, problems or concerns Assessment & Plan (06/03/2023 4:53 PM EDT): -patient reports frequent migraine occurrence -previously used amitriptyline with success -prescription for amitriptyline sent to pharmacy along with imitrex and naproxen -advised avoidance of triggers and blue light filter on screens -headache diary encouraged -follow-up 1 month Acute pharyngitis 04/22/2022 Assessment & Plan (04/22/2022 10:52 AM EST): Likely viral, but possible allergies. Refill on zyrtec Recommend supportive care. Fullness of neck 04/22/2022 Assessment & Plan (04/22/2022 10:51 AM EST): Will cehck TSH. No lymphadenopathy. Nephrolithiasis 02/10/2021 Mild persistent asthma 12/19/2017 Assessment & Plan (12/23/2023 12:05 PM EDT): -acute exacerbation. ACT score 6 -start budesonide-formoterol two times daily today. May use additional 2 puffs as needed acute symptoms not responding to rescue inhaler -discontinue Beclomethasone inhaler -continue daily use of antihistamine also -ED precautions review -follow-up 1 month via telephone Assessment & Plan (06/03/2023 5:02 PM EDT): -patient reports symptom stability -maintenance inhaler changed to pulmicort as Flovent is no longer available -trigger avoidance advised. Use albuterol before rigorous activity -follow-up as needed Seasonal allergies 12/19/2017 Assessment & Plan (10/10/2023 12:29 PM EDT): -med refill provided Resolved Problems Problem Noted Date Diagnosed Date Resolved Date Social anxiety disorder 06/13/2024 04/0 04/2024 Encounters * This document contains information received from the source organization and may not represent a complete record from that organization. Date Type Department Care Team Description 06/13/2024 11:30 AM EDT Clinical Support [address] [address] Lauren Eisenberg, LIO Elevated blood pressure reading without diagnosis of hypertension 06/13/2024 Travel 06/08/2024 Travel 06/07/[address] [address] Mago Rocha NP Lab Orders 06/06/2024 10:30 AM EDT Office Visit [address] [address] Mago Rocha NP Mild persistent asthma without complication (Primary Dx); Palpitation; Elevated blood pressure reading in office without diagnosis of hypertension 06/06/2024 Travel 06/05/2024 Travel 06/01/[address] [address] Leelee Jacobsen [place] 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 [employer] 06/01/2024 Travel 06/01/[address] [address] Mago Rocha NP Referral 05/31/[address] [address] Mago Rocha NP Appointment Request from Last 3 Months Immunizations Name Administration Dates Next Due DTaP 01/30/2008, 5,2003,08/21,2003 DTaP, 5 pertussis antigens 2003 HPV 9-Valent 04/20/2016,12/16/2015,10/02/2015 Hep A, ped/adol, 2 dose 01/22/2014,05/15/2010 Hep B, Adolescent or Pediatric 01/06/2004,2003,2003 Hep B, adult 04/01/2023 Hib (HbOC) 08/27/2004, 4,2003,06/20 Hib (PRP-T) 2003 IPV 01/30/2008, 4,2003,08/21 Influenza injectable quadriv alent preservative free 06/03/2020,12/05/2018,12/19/2017,12/15,01/22/2014 Influenza, IIV3, injectable 01/09/2009,1 03/31/2007,01/11/2007,03/23 Influenza, Split (incl. moni fied surface antigen) 01/01/2013 Influenza, seasonal, injecta ble, preservative free 12/23/2023 MMR 01/30/2008,05/28/2004 Meningococcal MCV4P ACYW-135 06/03/2020,10/02/19 16 Pfizer Covid-19 Vaccine 12+ 12/23/2023 Pneumococcal Conjugate PCV 20 01/03/2024 Pneumococcal Conjugate PCV 7 08/27/2004, 2003,2003,06/20 Tdap 01/07/2015 Varicella 09/10/2008,05/28/2004 Family History Medical History Relation Name Comments Hypertension Father Skin cancer Maternal Grandmother Diabetes Paternal Grandmother Relation Name Status Comments Father Maternal Grandmother Paternal Grandmother Social History Tobacco Use Types Packs/Day [...] Orientation Straight 01/11/2022 10 :17 AM EDT Last Filed Vital Signs Vital Sign Reading Time Taken Comments Blood Pressure 124/78 06/13/2024 11:55 AM EDT Pulse 102 06/13/2024 11:54 AM EDT Temperature 37.2 ??C (99 ??F) 06/06/2024 10:43 AM EDT Respiratory Rate 18 06/13/2024 11:54 AM EDT Oxygen Saturation 99% 06/13/2024 11:54 AM EDT Room air Inhaled Oxygen Concentration - - Weight 65.4 kg (144 lb 3.2 oz) 06/13/2024 11:54 AM EDT Height 154.9 cm (5' 1 ) 06/06/2024 10:43 AM EDT Body Mass Index 27.25 06/06/2024 10:43 AM EDT Plan of Treatment Upcoming Encounters Date Type Department Care Team (Late st Contact Info) Description 07/11/2024 9:15 AM EDT Procedure Visit [facility] [address] [place] [address] Marilu Dunne, DANITZA [address] [place] [address] Health Maintenance Due Date Last Done Comments Alcohol/Substance Use Screening 2015 Family Planning (PISQ) 2018 Pap Smear 2024 SDOH Screening 07/19/2024 07/20/2023 Chlamydia and Gonorrhea Screening 09/27/2024 09/28/2023 DTaP/Tdap/Td Vaccines (7 - Td or Tdap) 01/07/2025 01/07/2015, 01/30/2008, 08/27/2004, Additional history exists Depression Screening 06/06/2025 06/06/2024, 06/07/19 25 Tobacco Screening 06/13/2025 06/13/2024 Zoster Vaccines (1 of 2) 2053 RSV Patients and Patients Aged 60 years or older (1 - 1-dose 75+ series) 2078 HIB Vaccines Completed 08/27/2004, 10/12, 2003, Additional history exists IPV Vaccines Completed 01/30/2008, 12/13, 2003, Additional history exists Hepatitis A Vaccines Completed 01/22/2014, 05/16/19 11 HPV Vaccines Completed 04/20/2016, 06/2015, 10/02/2015 Meningococcal Vaccine Completed 06/03/2020, 016 Hepatitis B Vaccines Completed 04/01/2023, 01/06/2004, 2003, Additional history exists HIV Screening Completed 07/05/2023 Hepatitis C Screening Completed 09/28/2023, 024 COVID-19 Vaccine Completed 12/23/2023, , 07/30/2020, Additional history exists Influenza Vaccine Completed 12/23/2023, , 12/05/2018, Additional history exists Pneumococcal Vaccine: Pediatrics (0 to 5 Years) and At-Risk Patients (6 to 49) Years) Completed 01/03/2024, 08/27/2004, 2003, Additional history exists RSV under 20 months Aged Out No longe r eligible based on patient's age to complete this topic Rotavirus Vaccines Aged Out No longer eligible based on patient's age to complete this topic Procedures Procedure Name Priority Date/Time Associated Diagnosis Comments BASIC METABOLIC PANEL Routine 06/09/2024 2:28 PM EDT Palpitation TSH W/REFLEX TO FT4 Routine 06/09/2024 2 :28 PM EDT Palpitation CBC WITH AUTO DIFFERENTIAL Routine 06/09/2024 2:28 PM EDT Palpitation ALBUMIN, RANDOM URINE W/CREATININE Routine 06/09/2024 12:00 AM EDT Elevated blood pressure reading in office without diagnosis of hypertension HEPATITIS C AB W/REFL TO HCV RNA, QN, PCR Routine 09/28/2023 3:54 PM EDT Annual physical exam CHLAMYDIA/N. GONORRHOEAE RNA, TMA, UROGENITAL Routine 09/28/2023 3:53 PM EDT Abnormal uterine bleeding HIV 1/2 ANTIGEN/ANTIBODY, FOURTH GENERATION W/RFL Routine 07/05/2023 9:51 AM EDT Abnormal uterine bleeding from Last 3 Months or Most Recently Relevant to Health Maintenance Results * TSH W/Reflex to FT4 (06/09/2024 2:28 PM EDT) TSH reflex Free T4 0.77 0.32 - 4.0 uIU/mL [facility] Blood Venous blood specimen / Unknown 06/09/2024 2:28 PM EDT 06/09/2024 3:41 PM EDT Mago Rocha NP LAB BLOOD ORDERABLES Final Resu lt [facility] [address] [place] [phone] * (ABNORMAL) CBC auto differential (06/09/2024 2:28 PM EDT) White Blood Count 10.9(H) 4.8 - 10.8 X10*3/uL [facility] Red Blood Count 4.48 4.20 - 5.50 X10*6/uL [facility] Hemoglobin 13.1 12.0 - 16.0 g/dl [facility] Hematocrit 39.7 37.0 - 47.0 % [facility] Mean Corpuscular Volume 88.6 80.0 - 98.0 fL [facility] Mean Corpuscular Hemoglobin 29.2 27.0 - 33.0 pg [facility] Mean Corpuscular HGB Conc 33.0 31.0 - 35.0 g/dl [facility] Red Cell Distribution Width 13.2 11.0 - 16.0 % [facility] Platelet Count 340 160 - 400 X10*3/uL [facility] Mean Platelet Volume 10.0 9.4 - 12.3 fL [facility] Neutrophils Percent Auto 71.7 45 - 73 % [facility] Imm Gran Pct Auto 0.4 0.0 - 0.4 % [facility] Lymphocytes Percent Auto 19.2(L) 20 - 40 % [facility] Monocytes Percent Auto 7.5 2 - 11 % [facility] Eosinophils Percent Auto 0.7 0 - 4 % [facility] Basophils Percent Auto 0.5 0 - 2 % [facility] NRBC Pct Auto 0.0 0.0 - 0.2 /100WBC [facility] Neutrophils Absolute Auto 7.9 2.0 - 8.3 x10*3/uL [facility] Imm Gran Abs Auto 0.04(H) 0.00 - 0.03 X10*3/uL [facility] Lymphocytes Absolute Auto 2.1 1.2 - 4.9 X10*3/uL [facility] Monocytes Absolute Auto 0.8 0.1 - 1.2 X10*3/uL [facility] Eosinophils Absolute Auto 0.1 0.0 - 0.4 X10*3/uL [facility] Basophils Absolute Auto 0.1 0.0 - 0.2 X10*3/uL [facility] NRBC Abs Auto 0.000 0.0 - 0.012 X10*3/uL [facility] Blood Venous blood specimen / Unknown 06/09/2024 2:28 PM EDT 06/09/2024 3:41 PM EDT us Mago Rocha [employer] LAB BLOOD ORDERABLES Final Resu lt [facility] [address] [place] [phone] * (ABNORMAL) Basic Metabolic Panel (06/09/2024 2:28 PM EDT) Sodium 141 135 - 145 mmol/L [facility] Potassium 3.7 3.3 - 5.1 mmol/L [facility] Chloride 111(H) 96 - 108 mmol/L [facility] Carbon Dioxide 24 22 - 29 mmol/L [facility] Anion Gap 10(L) 12 - 20 [facility] Urea Nitrogen (BUN) 13 9 - 16 mg/dL [facility] Creatinine, Serum 0.71 0.5 - 1.4 mg/dL [facility] Estimated Glomerular Filt Rate >60 [facility] Comment:Chronic Kidney Disea se: Estimated GFR < 60 mL/min/1.65i6Tbmban Kidney Disease: Estimated GFR < 15 mL/min/1.73m2 Glucose 90 60 - 115 mg/dL [facility] Calcium 9.8 8.4 - 10.2 mg/dL [facility] Blood Venous blood specimen / Unknown 06/09/2024 2:28 PM EDT 06/09/2024 3:41 PM EDT Mago Rocha [employer] LAB BLOOD ORDERABLES Final Resu lt [facility] [address] [place] [address] [phone] * Albumin, Random Urine W/Creatinine (06/09/2024 12:00 AM EDT) Creatinine, Urine 207.59 mg/dL [facility] Microalbumin Urine 11.0 mg/L [facility] Microalbum Creatinine Ratio Ur 5.2 <30 ug/mg cr [facility] Comment:Albumin/Creatinine R atio Reference Ranges: Normal: < 30 ug/mg creatinine Microalbuminuria: 30 - 300 ug/mg creatinineClinical Albuminuria: > 300 ug/mg creatinine Urine (Urine, Random) 06/09/2024 06/09/2024 [facility] LAB URINE ORDERABLES Final Resu lt Performing Organization Address [facility] Co de Phone Number [facility] [address] [place] [phone] * Hepatitis C Antibody with Reflex to HCV, RNA, Quantitative, Real-Time PCR (09/28/2023 3:54 PM EDT) [facility] Hepatitis C Antibody Nonreactive Nonreactive [facility] Comment:Antibodies to HCV no t detected; does not exclude early acuteHCV infection. Blood Venous blood specimen / Unknown 09/28/2023 3:54 PM EDT 09/28/2023 3:54 PM EDT [facility] LAB BLOOD ORDERABLES Final Resu Performing Organization Address [facility] Co de Phone Number [facility] [address] [place] [phone] * Chlamydia/N. Gonorrhoeae RNA, TMA, Urogenitial (09/28/2023 3:53 PM EDT) [facility] CT PCR NOT DETECTED Not Detect. [facility] Comment:A not detected test result does not exclude the possibilityof infection because test results can be affected byimproper specimen collection, concurrent antibiotic therapy,or the number of organisms in the specimen which may bebelow the sensitivity of the test. As with many diagnostictests, results from the Xpert CT/NG assay should beinterpreted in conjunction with other laboratory andclinical data available to the clinician.Xpert CT/NG performance has not been evaluated in patientsless than 14 years of age. The assay should not be used forthe evaluationof suspected sexual abuse or for other medico-legalindications. Additional testing is recommended in anycircumstance when false positive or false negative resultscould lead to adverse medical, social or psychologicalconsequences. NG PCR NOT DETECTED Not Detect. [facility] Comment:A not detected test result does not exclude the possibilityof infection because test results can be affected byimproper specimen collection, concurrent antibiotic therapy,or the number of organisms in the specimen which may bebelow the sensitivity of the test. As with many diagnostictests, results from the Xpert CT/NG assay should beinterpreted in conjunction with other laboratory andclinical data available to the clinician.Xpert CT/NG performance has not been evaluated in patientsless than 14 years of age. The assay should not be used forthe evaluationof suspected sexual abuse or for other medico-legalindications. Additional testing is recommended in anycircumstance when false positive or false negative resultscould lead to adverse medical, social or psychologicalconsequences. Urine, Random 09/28/2023 3:5 3 PM EDT 09/28/2023 5:14 PM EDT Narrative [facility] - 09/28/2023 6:48 PM EDT Urine Mago Rocha NP LAB MICROBIOLOGY - [facility] IN[facility] Final Result [facility] [address] [place] [phone] * HIV-1/2 Antigen and Antibodies, Fourth Generation, with Reflexes (07/05/2023 9:51 AM EDT) HIV AB/AG Nonreactive Nonreactive [facility] Comment:HIV-1 p24 Ag and/or HIV-1/HIV-2 Ab not detected.A test result that is nonreactive does not exclude thepossibility of exposure to or infection with HIV-1 and/orHIV-2. Nonreactive results in this assay for individualswith prior exposure to HIV-1 and/or HIV-2 may be due toantigen and antibody levels that are below the limit ofdetection of this assay.[employer] HIV Ag/Ab Combo assay result andsupplemental assay results should be interpreted inconjunction with the patient's clinical presentation,history and other laboratory results. If the results areinconsistent with clinical evidence, additional testing issuggested to confirm the result. Blood Venous blood specimen / Unknown 07/05/2023 9:51 AM EDT 07/05/2023 9:51 AM EDT Mago Rocha NP LAB BLOOD ORDERABLES Final Resu lt [facility] [address] [place] [phone] from Last 3 Months or Most Recently Relevant to Health Maintenance Insurance [employer] Care Teams Child Care Supervisor Relationship Specialty Start Date End Date Mago Rocha NP [address] [place] [phone] PCP - General Family Medicine 01/06/23
== END 2024-06-18 13:24 | disposition home or self-care (01) ==
LOC: HO.HGI 10:50
PROVIDERS: PCP Nurse Practitioner; Visit Provider Internal Medicine Gastroenterology
DX: R10.2 Pelvic and perineal pain (principal)
CPT/HCPCS: 99213

== ENCOUNTER → 2024-06-18 10:50 | Outpatient (BNVA) | payer OTHER, SELFPAY | PROVIDERS: PCP Nurse Practitioner; Visit Provider Internal Medicine Gastroenterology ==

== ENCOUNTER 2024-07-09 16:16 | Outpatient (REF) | payer OTHER, SELFPAY ==
[2024-07-09 16:32] LABS: MANUAL DIFF FLAG NO
[2024-07-09 17:12] LABS: Basophils Percent Auto 0.4 % (0-2); Eosinophils Absolute Auto 0.4 X10*3/uL (0.0-0.4); Eosinophils Percent Auto 3.7 % (0-4); Hematocrit 38.6 % (37.0-47.0); Imm Gran Abs Auto 0.04 X10*3/uL (0.00-0.03); Imm Gran Pct Auto 0.4 % (0.0-0.4); Lymphocytes Absolute Auto 2.6 X10*3/uL (1.2-4.9); Lymphocytes Percent Auto 24.1 % (20-40); Mean Corpuscular HGB Conc 33.7 g/dl (31.0-35.0); Mean Corpuscular Hemoglobin 29.8 pg (27.0-33.0); Mean Corpuscular Volume 88.5 fL (80.0-98.0); Mean Platelet Volume 9.7 fL (9.4-12.3); Monocytes Absolute Auto 0.8 X10*3/uL (0.1-1.2); Monocytes Percent Auto 7.2 % (2-11); Neutrophils Absolute Auto 6.9 x10*3/uL (2.0-8.3); Neutrophils Percent Auto 64.2 % (45-73); Platelet Count 349 X10*3/uL (160-400); Red Blood Count 4.36 X10*6/uL (4.20-5.50); White Blood Count 10.8 X10*3/uL (4.8-10.8)
[2024-07-09 18:16] LABS: Erythrocyte Sedimentation Rate 9 MM/HR (0-20)
[2024-07-09 18:27] LABS: Anion Gap 14 (12-20)
[2024-07-09 18:29] LABS: Alanine Aminotransferase 11 U/L (0-31); Albumin Level 4.3 g/dL (3.5-5.0); Alkaline Phosphatase 89 U/L (39-117); Aspartate Amino Transferase 19 U/L (5-31); Bilirubin Total 0.6 mg/dL (0.0-1.0); Blood Urea Nitrogen 12 mg/dL (9-16); C Reactive Protein 0.64 mg/dL (< or = 0.50); Calcium 9.5 mg/dL (8.4-10.2); Carbon Dioxide 25 mmol/L (22-29); Chloride 106 mmol/L (96-108); Estimated Glomerular Filt Rate > 60; Glucose Random 88 mg/dL (60-115); Potassium 3.9 mmol/L (3.3-5.1); Sodium 141 mmol/L (135-145); Total Protein 7.5 g/dL (6.5-8.0)
[2024-07-09 18:51] LABS: Ferritin 24 ng/mL (10-122)
--- OUTSIDE RECORDS SUMMARY | 2024-07-09 18:56 | XMS_ITS | Encounter Summary ---
Author Organization [employer] Address [address] [place] [address] [address] [place] [address] Care Team Providers Care Brick Tender Name Role Phone Mago Rocha NP Primary Care Provider [phone] Reason for Visit * Reason Onset Date Comments Appointment Request 05/31/2024 Encounter Details Date Type Department Care Team ([facility] st Contact Info) Description 05/31/2024 Telephone [facility] [address] [place] [address] Mago Rocha NP [address] [place] [address] Appointment Request Social History Tobacco Use Types [...] from pt requesting appointment for 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 documented in this encounter Plan of Treatment Upcoming Encounters Date Type Department Care Team (Late st Contact Info) Description 07/11/2024 9:15 AM EDT Procedure Visit [facility] [address] [place] [address] Marilu Dunne CNP [address] [place] [address] documented as of this encounter Visit Diagnoses Not on filedocumented in this encounter Additional Health Concerns Assessment Noted Time PHQ-9 Depression Total Score: 0 06/03/19 24 10:49 AM EDT documented as of this encounter Care Teams Brick Tender Relationship Specialty Start Date End Date Mago Rocha NP [address] [place] [address] PCP - General Family Medicine 01/06/23 documented as of this encounter
--- OUTSIDE RECORDS SUMMARY | 2024-07-09 18:56 | XMS_ITS | Encounter Summary ---
Author Organization [employer] Address [address] [place] [address] [address] [place] [address] Care Team Providers Care [employer]erox Machine Assembler Name Role Phone Mago Rocha NP Primary Care Provider [phone] Reason for Visit * Reason Onset Date Comments Referral 06/01/2024 Encounter Details Date Type Department Care Team (Late st Contact Info) Description 06/01/2024 Telephone [facility] [address] [place] [address] Mago Rocha NP [address] [place] [address] Referral Social History Tobacco Use Types Packs/Day [...] with others, in a hotel, in a half-way, living outside on the street, on a [...] EDT Tc from 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, [place] [facility] Specialist : Cyber Security Provider : Erwin Roland MD Location : [facility] documented in this encounter Plan of Treatment Upcoming Encounters Date Type Department Care Team (Late st Contact Info) Description 07/11/2024 9:15 AM EDT Procedure Visit [facility] [address] [place], [place] [phone] Marilu Dunne CNP [address] [place], [place] [phone] documented as of this encounter Visit Diagnoses Not on filedocumented in this encounter Additional Health Concerns Assessment Noted Time PHQ-9 Depression Total Score: 0 06/03/19 24 10:49 AM EDT documented as of this encounter Care Teams [employer] Machine Assembler Relationship Specialty Start Date End Date Mago Rocha NP [address] [place], [place] [phone] PCP - General Family Medicine 01/06/23 documented as of this encounter
--- OUTSIDE RECORDS SUMMARY | 2024-07-09 18:56 | XMS_ITS | Encounter Summary ---
Author Organization [employer] Address [address] [place] [address] Street [address] [place] [address] Care Team Providers Care Surfacer Name Role Phone Mago Rocha NP Primary Care Provider [phone] Encounter Details Date Type Department Care Team (Late st Contact Info) Description 07/09/2024 Orders Only GENERIC EXTERNAL DATA DEPARTMENT Provider, Generic External Data Social History Tobacco Use Types Packs/Day Years [...] with others, in a hotel, in a [place] [facility] [place], living outside on the street, on a [...] Description 07/11/2024 9:15 AM EDT Procedure Visit [facility] [address] [place], [place] [phone] Marilu Dunne, DIE LAY OUT WORKER [address] [place], [place] [phone] documented as of this encounter Procedures Procedure Name Priority Date/Time Associated Diagnosis Comments CBC WITH AUTO DIFFERENTIAL Routine 07/09/2024 4:30 PM EDT SED RATE BY MODIFIED WESTERGREN Routine 07/09/2024 4:30 PM EDT C-REACTIVE PROTEIN Routine 07/09/2024 4: 30 PM EDT FERRITIN Routine 07/09/2024 4:30 PM EDT COMPREHENSIVE METABOLIC PANEL Routine 07/09/2024 4:30 PM EDT documented in this encounter Results * Ferritin (07/09/2024 4:30 PM EDT) Ferritin 24 10 - 122 ng/mL [facility] 07/09/2024 4:30 PM EDT 07/09/2024 4:30 PM EDT us Generic External Data Provider LAB BLOOD ORDERAB LES Final Result Performing Organization Address City/[facility]/ZIP Co de Phone Number [facility] [address] [place] [address] [phone] * (ABNORMAL) C-reactive Protein (07/09/2024 4:30 PM EDT) Pathologist [facility] C Reactive Protein 0.64(H) < or = 0.50 mg/dL [facility] 07/09/2024 4:30 PM EDT 07/09/2024 4:30 PM EDT Generic External Data Provider LAB BLOOD ORDERAB LES Final Result Performing Organization Address [facility] Co de Phone Number [facility] [address] [place] [phone] * Comprehensive Metabolic Panel (07/09/2024 4:30 PM EDT) [facility] Sodium 141 135 - 145 mmol/L [facility] Potassium 3.9 3.3 - 5.1 mmol/L [facility] Chloride 106 96 - 108 mmol/L [facility] Carbon Dioxide 25 22 - 29 mmol/L [facility] Anion Gap 14 12 - 20 [facility] Urea Nitrogen (BUN) 12 9 - 16 mg/dL [facility] Creatinine, Serum 0.88 0.5 - 1.4 mg/dL [facility] Estimated Glomerular Filt Rate >60 [facility] Comment:Chronic Kidney Disea se: Estimated GFR < 60 mL/min/[id number] Kidney Disease: Estimated GFR < 15 mL/min/1.73m2 Glucose 88 60 - 115 mg/dL [facility] Calcium 9.5 8.4 - 10.2 mg/dL [facility] Bilirubin, Total 0.6 0.0 - 1.0 mg/dL [facility] Aspartate Amino Transferase 19 5 - 31 U/L [facility] Alanine Aminotransferase 11 0 - 31 U/L [facility] Total Protein 7.5 6.5 - 8.0 g/dL [facility] Albumin Level 4.3 3.5 - 5.0 g/dL [facility] Alkaline Phosphatase 89 39 - 117 U/L [facility] 07/09/2024 4:30 PM EDT 07/09/2024 4:30 PM EDT Generic External Data Provider LAB BLOOD ORDERAB LES Final Result Performing Organization Address [facility] Co de Phone Number [facility] [address] [place] [phone] * Sed Rate by Modified Dewayneergren (07/09/2024 4:30 PM EDT) [facility] Erythrocyte Sedimentation Rate 9 0 - 20 MM/HR [facility] Comment:Patients with polycy themia and many hemoglobin abnormalitiesmay have depressed sed rates whereas patients with anemiamay have elevated sed rates. 07/09/2024 4:30 PM EDT 07/09/2024 4:30 PM EDT Generic External Data Provider LAB BLOOD ORDERAB LES Final Result Performing Organization Address [facility] de Phone Number [facility] [address] [place] [phone] * (ABNORMAL) CBC auto differential (07/09/2024 4:30 PM EDT) Pathologist [facility] White Blood Count 10.8 4.8 - 10.8 X10*3/uL [facility] Red Blood Count 4.36 4.20 - 5.50 X10*6/uL [facility] Hemoglobin 13.0 12.0 - 16.0 g/dl [facility] Hematocrit 38.6 37.0 - 47.0 % [facility] Mean Corpuscular Volume 88.5 80.0 - 98.0 fL [facility] Mean Corpuscular Hemoglobin 29.8 27.0 - 33.0 pg [facility] Mean Corpuscular HGB Conc 33.7 31.0 - 35.0 g/dl [facility] Red Cell Distribution Width 13.0 11.0 - 16.0 % [facility] Platelet Count 349 160 - 400 X10*3/uL [facility] Mean Platelet Volume 9.7 9.4 - 12.3 fL [facility] Neutrophils Percent Auto 64.2 45 - 73 % [facility] Imm Gran Pct Auto 0.4 0.0 - 0.4 % [facility] Lymphocytes Percent Auto 24.1 20 - 40 % [facility] Monocytes Percent Auto 7.2 2 - 11 % [facility] Eosinophils Percent Auto 3.7 0 - 4 % [facility] Basophils Percent Auto 0.4 0 - 2 % [facility] NRBC Pct Auto 0.0 0.0 - 0.2 /100WBC [facility] Neutrophils Absolute Auto 6.9 2.0 - 8.3 x10*3/uL [facility] Imm Gran Abs Auto 0.04(H) 0.00 - 0.03 X10*3/uL [facility] Lymphocytes Absolute Auto 2.6 1.2 - 4.9 X10*3/uL [facility] Monocytes Absolute Auto 0.8 0.1 - 1.2 X10*3/uL [facility] Eosinophils Absolute Auto 0.4 0.0 - 0.4 X10*3/uL [facility] Basophils Absolute Auto 0.0 0.0 - 0.2 X10*3/uL [facility] NRBC Abs Auto 0.000 0.0 - 0.012 X10*3/uL [facility] 07/09/2024 4:30 PM EDT 07/09/2024 4:30 PM EDT us Generic External Data Provider LAB BLOOD ORDERAB LES Final Result [facility] [address] [place] [phone] documented in this encounter Visit Diagnoses Not on filedocumented in this encounter Additional Health Concerns Assessment Noted Time PHQ-9 Depression Total Score: 3 06/07/19 25 11:33 AM EDT documented as of this encounter Care Teams Surfacer Relationship Specialty Start Date End Date Mago Rocha NP [address] [place] [phone] PCP - General Family Medicine 01/06/23 documented as of this encounter
--- OUTSIDE RECORDS SUMMARY | 2024-07-09 18:56 | XMS_ITS | Encounter Summary ---
Author Organization [employer] Address [address] [place] [address] [address] [place] [address] Care Team Providers Care Balloon Sander Name Role Phone Mago Rocha NP Primary Care Provider [phone] Reason for Visit * Reason Onset Date Comments Med Refill 06/20/2024 Encounter Details Date Type Department Care Team ([facility] st Contact Info) Description 06/20/2024 Refill [facility] [address] [place] [address] Massiel Ann MD [address] [place] [address] Social History Tobacco Use Types Packs/Day Years [...] with others, in a hotel, in a assisted, living outside on the street, on a [...] Description 07/11/2024 9:15 AM EDT Procedure Visit [facility] [address] [place], [place] [phone] Marilu Dunne CNP [address] [place] [address] documented as of this encounter Visit Diagnoses Not on filedocumented in this encounter Additional Health Concerns Assessment Noted Time PHQ-9 Depression Total Score: 3 06/07/19 25 11:33 AM EDT documented as of this encounter Care Teams Balloon Sander Relationship Specialty Start Date End Date Mago Rocha NP [address] [place] [address] PCP - General Family Medicine 01/06/23 documented as of this encounter
--- OUTSIDE RECORDS SUMMARY | 2024-07-09 18:56 | XMS_ITS | Encounter Summary ---
Author Organization [employer] Address [address] [place] [address] 7 [place] [address] Care Team Providers Care Storage Receipt Poster Name Role Phone Mago Rocha NP Primary Care Provider [phone] Reason for Visit * Reason Onset Date Comments Med Refill 11/01/2023 Encounter Details Date Type Department Care Team (Late st Contact Info) Description 11/01/2023 Refill [facility] [address] [place] [address] Mago Rocha NP [address] [place] [address] Seasonal allergies Social History Tobacco Use Types [...] Description 07/11/2024 9:15 AM EDT Procedure Visit [facility] [address] [place] [address] Marilu Dunne CNP [address] [place] [address] documented as of this encounter Visit Diagnoses Diagnosis Seasonal allergies Allergic rhinitis, cause unspecified documented in this encounter Additional Health Concerns Assessment Noted Time PHQ-9 Depression Total Score: 0 06/03/19 24 10:49 AM EDT documented as of this encounter Care Teams Storage Receipt Poster Relationship Specialty Start Date End Date Mago Rocha NP [address] [place], [place] [phone] PCP - General Family Medicine 01/06/23 documented as of this encounter
--- OUTSIDE RECORDS SUMMARY | 2024-07-09 18:56 | XMS_ITS | Clinical Summary ---
Author Organization [facility] Address [address] [place] [address] Phone Care Team Providers Care Assembly And Packing Supervisor Name Role Phone Westley Bailey MD Primary [...] - 19+ 3-dose series) 2022 Influenza Vaccine (Season Ended) 2024 Pneumococcal Vaccine: Peds ( 0 to 5 Years) and At-Risk Patients (6 to 49 Years) Aged Out No longer eligible b ased on patient's age to complete this topic Insurance Medicaid [place] Medicaid [place] Care Teams Assembly And Packing Supervisor Relationship Specialty Start Date End Date Westley Bailey MD PCP - General Pediatrics 10/31/20
--- OUTSIDE RECORDS SUMMARY | 2024-07-09 18:57 | XMS_ITS | Clinical Summary ---
Author Organization [employer] Address [address] [place] [address] 7[address] [place] [address] Care Team Providers Care Roto Rooter Operator Name Role Phone Mago Rocha NP Primary Care Provider [phone] Allergies Active Allergy Reactions Criticality Noted Date Comments Fruit Extracts 06/15/2019 Other reaction(s): multiple fruits, rash, itching only Peanut-Containing Drug Products Angioedema 2023 Medications * This document contains information received from the source organization and may not represent a complete record from that organization. D3-1000 25 MCG (1000 UT) capsule Take 25 mcg by mouth in the morning. 023 Active etonogestrel-elu ting (Nexplanon) 68 mg contraceptive implant Placed 09/2018 019 Active Linzess 145 MCG capsule 024 Active pantoprazole (ProtoNix) 40 MG EC tablet 023 Active predniSONE (Deltasone) 20 MG tablet 024 Active albuterol (2.5 MG/3ML) 0.083% nebulizer solution Take 3 mL (2.5 mg) by nebulization every 4 (four) hours if needed for wheezing or shortness of breath. 75 mL 024 2024 Active pyridoxine (Vitamin B-6) 25 MG tablet 50 mg. 023 Active amitriptyline (Elavil) 10 MG tabletIndication s:Migraine without aura, not refractory TAKE 1 TABLET BY MOUTH AT BEDTIME 30 tablet 2 025 Active SUMAtriptan (Imitrex) 25 MG tabletIndication s:Migraine without aura, not refractory TAKE 1 TABLET BY MOUTH AT ONSET OF HEADACHE. TAKE WITH NAPROXEN. MAY REPEAT DOSE ONCE IN 2 HOURS IF NO RELIEF. DO NOT EXCEED 2 DOSES IN 24 HOURS. 9 tablet 1 025 Active naproxen (Naprosyn) 500 MG tabletIndication s:Migraine without aura, not refractory TAKE 1 TABLET Y MOUTH AT ONSET OF HEADACHE. TAKE WITH IMITREX. DO NOT TAKE MORE THAN 2 TABLETS DAILY. 60 tablet 1 025 Active levocetirizine (Xyzal Allergy 24HR) 5 MG tabletIndication s:Seasonal allergies TAKE 1 TABLET BY MOUTH EVERY EVENING 30 tablet 11 025 Active budesonide-formo terol (Symbicort) 80-4.5 MCG/ACT inhalerIndicatio ns:Mild persistent asthma without complication INHALE 2 PUFS BY MOUTH IN THE MORNING AND EVENING. RINSE MOUTH WITH WATER AFTER USE TO REDUCE AFTERTASTE AND INCIDENCE OF CANDIDIASIS. DO NOT SWALLOW. 1 each 1 025 Active albuterol (Ventolin HFA) 108 (90 Base) MCG/ACT inhaler INHALE 2 PUFFS EVERY 4 HOURS IF NEEDED FOR WHEEZING. 18 g 025 Active ibuprofen 400 MG tabletIndication s:Lower abdominal pain Take 1 tablet (400 mg) by mouth every 6 (six) hours if needed for moderate pain or fever for up to 30 doses. 30 tablet 022 2024 Discontinued(M ed list cleanup (will not trigger notification to Pharmacy)) Ventolin HFA 108 (90 Base) MCG/ACT inhaler INHALE 2 PUFFS EVERY 4 HOURS IF NEEDED FOR WHEEZING. 18 g 023 2024 Discontinued(R eorder (will not trigger notification to Pharmacy)) amitriptyline (Elavil) 10 MG tabletIndication s:Migraine without aura, not refractory Take 1 tablet (10 mg) by mouth at bedtime. 30 tablet 2 024 2024 Discontinued(R eorder (will not trigger notification to Pharmacy)) SUMAtriptan (Imitrex) 25 MG tabletIndication s:Migraine without aura, not refractory Take 1 tablet at onset of headache with naproxen. May repeat dose once in 2 hours if no relief. Do not exceed 2 doses in 24 hours. 9 tablet 1 024 2024 Discontinued(R eorder (will not trigger notification to Pharmacy)) naproxen (Naprosyn) 500 MG tabletIndication s:Migraine without aura, not refractory Take 1 tablet at onset of headache with imitrex. Do not take more than 2 tablets daily. 60 tablet 1 024 2024 Discontinued(R eorder (will not trigger notification to Pharmacy)) levocetirizine (Xyzal Allergy 24HR) 5 MG tabletIndication s:Seasonal allergies Take 1 tablet (5 mg) by mouth in the evening. 30 tablet 11 024 2024 Discontinued(R eorder (will not trigger notification to Pharmacy)) budesonide-formo terol (Symbicort) 80-4.5 MCG/ACT inhalerIndicatio ns:Mild persistent asthma without complication Inhale 2 puffs in the morning and at bedtime. Rinse mouth with water after use to reduce after taste and incidence of candidiasis. Do not swallow. 1 each 1 024 2024 Discontinued(R eorder (will not trigger notification to Pharmacy)) Active Problems Problem Noted Date Diagnosed Date [...] go complete pelvic ultrasound previously ordered by [facility] GI provider -labs ordered to r/o STI [...] Date Resolved Date Social anxiety disorder 06/13/2024 0404/2024 Encounters * This document contains information received from the source organization and may not represent a complete record from that organization. Date Type Department Care Team Description 07/09/2024 Orders Only GENERIC EXTERNAL DATA DEPARTMENT Provider, Generic External Data 06/21/2024 Telephone [facility] [address] [place] [address] Mago Rocha NP Chart Prep 06/20/2024 [facility] [address] [facility] [place] [address] Mago Rocha NP Migraine without aura, not refractory; Seasonal allergies; Mild persistent asthma without complication 06/20/2024 Refill [facility] [address] [facility] [place] [address] Massiel Ann MD 06/13/2024 11:30 AM EDT Clinical Support [address] [address] Lauren Eisenberg RN Elevated blood pressure reading without diagnosis of hypertension 06/13/2024 Travel 06/08/2024 Travel 06/07/[address] [address] Mago Rocha NP Lab Orders 06/06/2024 10:30 AM EDT Office Visit [address] [address] Mago Rocha NP Mild persistent asthma without complication (Primary Dx); Palpitation; Elevated blood pressure reading in office without diagnosis of hypertension 06/06/2024 Travel 06/05/2024 Travel 06/01/[address] [address] Leelee Jacobsen [place] 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 [employer] 06/01/2024 Travel 06/01/[address] [address] Mago Rocha NP Referral 05/31/[address] [address] Mago Rocha NP Appointment Request from Last [...] with others, in a hotel, in a senior care, living outside on the street, on a [...] 07/11/2024 9:15 AM EDT Procedure Visit [facility] [address] [place] [address] Marilu Dunne, DANITZA [address] [place], [place] [phone] Health Maintenance Due Date Last Done Comments Alcohol/Substance Use Screening 2015 Family Planning (PISQ) 2018 Pap Smear 2024 SDOH Screening 07/19/2024 07/20/2023 Chlamydia and Gonorrhea Screening 09/27/2024 09/28/2023 DTaP/Tdap/Td Vaccines (7 - Td or Tdap) 01/07/2025 01/07/2015, 01/30/2008, 08/27/2004, Additional history exists Depression Screening 06/06/2025 06/06/2024, 06/07/19 Tobacco Screening 06/13/2025 06/13/2024 Zoster Vaccines (1 [...] Procedure Name Priority Date/Time Associated Diagnosis Comments FERRITIN Routine 07/09/2024 4:30 PM EDT C-REACTIVE PROTEIN Routine 07/09/2024 4: 30 PM EDT COMPREHENSIVE METABOLIC PANEL Routine 07/09/2024 4:30 PM EDT SED RATE BY MODIFIED WESTERGREN Routine 07/09/2024 4:30 PM EDT CBC WITH AUTO DIFFERENTIAL Routine 07/09/2024 4:30 PM EDT BASIC METABOLIC PANEL Routine 06/09/2024 2:28 PM [...] Recently Relevant to Health Maintenance Results * (ABNORMAL) CBC auto differential (07/09/2024 4:30 PM EDT) Only the most recent of2 resultswithin the time period is included. White Blood Count 10.8 4.8 - 10.8 X10*3/uL [facility] Red Blood Count 4.36 4.20 - 5.50 X10*6/uL [facility] Hemoglobin 13.0 12.0 - 16.0 g/dl [facility] Hematocrit 38.6 37.0 - 47.0 % [facility] Mean Corpuscular Volume 88.5 80.0 - 98.0 fL [facility] Mean Corpuscular Hemoglobin 29.8 27.0 - 33.0 pg [facility] Mean Corpuscular HGB Conc 33.7 31.0 - 35.0 g/dl [facility] Red Cell Distribution Width 13.0 11.0 - 16.0 % [facility] Platelet Count 349 160 - 400 X10*3/uL [facility] Mean Platelet Volume 9.7 9.4 - 12.3 fL [facility] Neutrophils Percent Auto 64.2 45 - 73 % [facility] Imm Gran Pct Auto 0.4 0.0 - 0.4 % [facility] Lymphocytes Percent Auto 24.1 20 - 40 % [facility] Monocytes Percent Auto 7.2 2 - 11 % [facility] Eosinophils Percent Auto 3.7 0 - 4 % [facility] Basophils Percent Auto 0.4 0 - 2 % [facility] NRBC Pct Auto 0.0 0.0 - 0.2 /100WBC [facility] Neutrophils Absolute Auto 6.9 2.0 - 8.3 x10*3/uL [facility] Imm Gran Abs Auto 0.04(H) 0.00 - 0.03 X10*3/uL [facility] Lymphocytes Absolute Auto 2.6 1.2 - 4.9 X10*3/uL [facility] Monocytes Absolute Auto 0.8 0.1 - 1.2 X10*3/uL [facility] Eosinophils Absolute Auto 0.4 0.0 - 0.4 X10*3/uL [facility] Basophils Absolute Auto 0.0 0.0 - 0.2 X10*3/uL [facility] NRBC Abs Auto 0.000 0.0 - 0.012 X10*3/uL [facility] 07/09/2024 4:30 PM EDT 07/09/2024 4:30 PM EDT us Generic External Data Provider LAB BLOOD ORDERAB LES Final Result Performing Organization Address [facility]/ZIP Co de Phone Number [facility] [address] [place] [phone] * Sed Rate by Modified Westergren (07/09/2024 4:30 PM EDT) Erythrocyte Sedimentation Rate 9 0 - 20 MM/HR [facility] Comment:Patients with polycy themia and many hemoglobin abnormalitiesmay have depressed sed rates whereas patients with anemiamay have elevated sed rates. 07/09/2024 4:30 PM EDT 07/09/2024 4:30 PM EDT Generic External Data Provider LAB BLOOD ORDERAB LES Final Result Performing Organization Address [facility] Co de Phone Number [facility] [address] [place] [phone] * (ABNORMAL) C-reactive Protein (07/09/2024 4:30 PM EDT) Pathologist [facility] C Reactive Protein 0.64(H) < or = 0.50 mg/dL [facility] 07/09/2024 4:30 PM EDT 07/09/2024 4:30 PM EDT Generic External Data Provider LAB BLOOD ORDERAB LES Final Result Performing Organization Address [facility] Co de Phone Number [facility] [address] [place] [address] [phone] * Ferritin (07/09/2024 4:30 PM EDT) Ferritin 24 10 - 122 ng/mL [facility] 07/09/2024 4:30 PM EDT 07/09/2024 4:30 PM EDT us Generic External Data Provider LAB BLOOD ORDERAB LES Final Result Performing Organization Address City/[facility]/ZIP Co de Phone Number [facility] [address] [place] [address] [phone] * Comprehensive Metabolic Panel (07/09/2024 4:30 PM EDT) Sodium 141 135 - 145 mmol/L [facility] Potassium 3.9 3.3 - 5.1 mmol/L [facility] Chloride 106 96 - 108 mmol/L [facility] Carbon Dioxide 25 22 - 29 mmol/L [facility] Anion Gap 14 12 - 20 [facility] Urea Nitrogen (BUN) 12 9 - 16 mg/dL [facility] Creatinine, Serum 0.88 0.5 - 1.4 mg/dL [facility] Estimated Glomerular Filt Rate >60 [facility] Comment:Chronic Kidney Disea se: Estimated GFR < 60 mL/min/[id number] Kidney Disease: Estimated GFR < 15 mL/min/1.73m2 Glucose 88 60 - 115 mg/dL [facility] Calcium 9.5 8.4 - 10.2 mg/dL [facility] Bilirubin, Total 0.6 0.0 - 1.0 mg/dL [facility] Aspartate Amino Transferase 19 5 - 31 U/L [facility] Alanine Aminotransferase 11 0 - 31 U/L [facility] Total Protein 7.5 6.5 - 8.0 g/dL [facility] Albumin Level 4.3 3.5 - 5.0 g/dL [facility] Alkaline Phosphatase 89 39 - 117 U/L [facility] 07/09/2024 4:30 PM EDT 07/09/2024 4:30 PM EDT us Generic External Data Provider LAB BLOOD ORDERAB LES Final Result Performing Organization Address City/[facility]/ZIP Co de Phone Number [facility] [address] [place] [address] [phone] * TSH W/Reflex to FT4 (06/09/2024 2:28 PM EDT) TSH reflex Free T4 0.77 0.32 - 4.0 uIU/mL [facility] Blood Venous blood specimen / Unknown 06/09/2024 2:28 PM EDT 06/09/2024 3:41 PM EDT [facility] AUTOMOTIVE GENERAL MANAGER LAB BLOOD ORDERABLES Final Resu lt Performing Organization Address [facility]/ZIP Co de Phone Number [facility] [address] [place] [address] [phone] * (ABNORMAL) Basic Metabolic Panel (06/09/2024 2:28 PM EDT) Sodium 141 135 - 145 mmol/L [facility] Potassium 3.7 3.3 - 5.1 mmol/L [facility] Chloride 111(H) 96 - 108 mmol/L [facility] Carbon Dioxide 24 22 - 29 mmol/L [facility] Anion Gap 10(L) 12 - 20 [facility] Urea Nitrogen (BUN) 13 9 - 16 mg/dL [facility] Creatinine, Serum 0.71 0.5 - 1.4 mg/dL [facility] Estimated Glomerular Filt Rate >60 [facility] Comment:Chronic Kidney Disea se: Estimated GFR < 60 mL/min/[id number] Kidney Disease: Estimated GFR < 15 mL/min/1.73m2 Glucose 90 60 - 115 mg/dL [facility] Calcium 9.8 8.4 - 10.2 mg/dL [facility] Blood Venous blood specimen / Unknown 06/09/2024 2:28 PM EDT 06/09/2024 3:41 PM EDT [employer] AUTOMOTIVE GENERAL MANAGER LAB BLOOD ORDERABLES Final Resu lt Performing Organization Address City/[facility]/ZIP Co de Phone Number [facility] [address] [place] [address] [phone] * Albumin, Random Urine W/Creatinine (06/09/2024 12:00 AM EDT) Pathologist [facility] Creatinine, Urine 207.59 mg/dL [facility] Microalbumin Urine 11.0 mg/L [facility] Microalbum Creatinine Ratio Ur 5.2 <30 ug/mg cr [facility] Comment:Albumin/Creatinine R atio Reference Ranges: Normal: < 30 ug/mg creatinine Microalbuminuria: 30 - 300 ug/mg creatinineClinical Albuminuria: > 300 ug/mg creatinine Urine (Urine, Random) 06/09/2024 06/09/2024 [facility] LAB URINE ORDERABLES Final Resu lt Performing Organization Address [facility]/ZIP Co de Phone Number [facility] [address] [place] [address] [phone] * Hepatitis C Antibody with Reflex to HCV, RNA, Quantitative, Real-Time PCR (09/28/2023 3:54 PM EDT) [facility] Hepatitis C Antibody Nonreactive Nonreactive [facility] Comment:Antibodies to HCV no t detected; does not exclude early acuteHCV infection. Blood Venous blood specimen / Unknown 09/28/2023 3:54 PM EDT 09/28/2023 3:54 PM EDT [facility] LAB BLOOD ORDERABLES Final Resu lt Performing Organization Address [facility]/ZIP Co de Phone Number [facility] [address] [place] [address] [phone] * Chlamydia/N. Gonorrhoeae RNA, TMA, Urogenitial (09/28/2023 3:53 PM EDT) [facility] CT PCR NOT DETECTED Not Detect. [facility] Comment:A not detected test result does [...] NG PCR NOT DETECTED Not Detect. [facility] Comment:A not detected test result does [...] EDT 09/28/2023 5:14 PM EDT Narrative [facility] - 09/28/2023 6:48 PM EDT Urine us Mago Rocha NP LAB MICROBIOLOGY - GENERAL VÍCTOR INGRAM Final Result [facility] [address] [place] [address] [phone] * HIV-1/2 Antigen and Antibodies, Fourth Generation, with Reflexes (07/05/2023 9:51 AM EDT) HIV AB/AG Nonreactive Nonreactive [facility] Comment:HIV-1 p24 Ag and/or HIV-1/HIV-2 Ab not detected.A test result that is nonreactive does not exclude thepossibility of exposure to or infection with HIV-1 and/orHIV-2. Nonreactive results in this assay for individualswith prior exposure to HIV-1 and/or HIV-2 may be due toantigen and antibody levels that are below the limit ofdetection of this assay.The [employer] HIV Ag/Ab Combo assay result andsupplemental assay results should be interpreted inconjunction with the patient's clinical presentation,history and other laboratory results. If the results areinconsistent with clinical evidence, additional testing issuggested to confirm the result. Blood Venous blood specimen / Unknown 07/05/2023 9:51 AM EDT 07/05/2023 9:51 AM EDT us Mago Rocha NP LAB BLOOD ORDERABLES Final Resu lt [facility] [address] [place] [phone] from Last 3 Months or Most Recently Relevant to Health Maintenance Insurance [employer] Care Teams Roto Rooter Operator Relationship Specialty Start Date End Date Mago Rocha NP [address] [place] [address] [place] [address] PCP - General Family Medicine 01/06/23
--- OUTSIDE RECORDS SUMMARY | 2024-07-09 18:57 | XMS_ITS | Encounter Summary ---
Author Organization [employer] Address [address] [place] [address] [address] [place] [address] Care Team Providers Care Toll Testboard Worker Name Role Phone Mago Rocha NP Primary Care Provider [phone] Reason for Visit * Reason Comments Med Change Request Encounter Details Date Type Department Care Team (Late st Contact Info) Description 06/03/2023 Refill [facility] [address] [place] [address] Mago Rocha NP [address] [place] [address] Mild persistent asthma without complication Social History [...] Description 07/11/2024 9:15 AM EDT Procedure Visit [facility] [address] [place] [address] Marilu Dunne CNP [address] [place] [address] documented as of this encounter Visit Diagnoses Diagnosis Mild persistent asthma without complication documented in this encounter Additional Health Concerns Assessment Noted Time PHQ-9 Depression Total Score: 0 06/03/19 24 10:49 AM EDT documented as of this encounter Care Teams Toll Testboard Worker Relationship Specialty Start Date End Date Mago Rocha NP [address] [place], [place] [phone] PCP - General Family Medicine 01/06/23 documented as of this encounter
[2024-07-10 05:08] LABS: IgA 269 mg/dL (47-310); IgG 1228 mg/dL (600-1640); IgM 162 mg/dL (50-300)
== END 2024-07-09 16:17 | disposition home or self-care (01) ==
LOC: HO.LAB 16:16
PROVIDERS: PCP Internal Medicine Gastroenterology; Visit Provider Nurse Practitioner
DX: R19.8 Other specified symptoms and signs involving the digestive system and abdomen (principal); K75.81 Nonalcoholic steatohepatitis (NASH)
CPT/HCPCS: 36415; 80053; 82728; 82784; 85025; 85652; 86140

== ENCOUNTER 2024-07-26 17:16 | Outpatient (REF) | payer OTHER, SELFPAY ==
--- OUTSIDE RECORDS SUMMARY | 2024-07-26 17:18 | XMS_ITS | Encounter Summary ---
Author Organization [employer] Address [address] [place] [address] 7 [place] [address] Care Team Providers Care Accounting Administrator Name Role Phone Mago Rocha NP Primary Care Provider [phone] Reason for Visit * Reason Comments Med Change Request Encounter Details Date Type Department Care Team (Late st Contact Info) Description 06/03/2023 Refill [facility] [address] [place] [address] Mago Rocha NP [address] [place] [address] Mild persistent asthma without complication Social History [...] AM EDT documented as of this encounter Functional Status * Over the past 2 weeks, how often have you been bothered by any of the following problems? Question Answer Date of Assessment Author Patient Health Questionnaire -2 Score 0 06/03/2023 10:49 AM Lg Castelan [place] * Over the past 2 weeks, how often have you been bothered by any of the following problems? Question Answer Date of Assessment Author Little interest or pleasure in doing things Not at all 06/03/2023 10:49 AM Lg Castelan [place] Feeling down, depressed, or hopeless Not at all 06/03/2023 10:49 AM Lg Castelan [place] Trouble falling or staying asleep, or sleeping too much Not at all 06/03/2023 10:49 AM Lg Castelan [place] Feeling tired or having pedro pablo le energy Not at all 06/03/2023 10:49 AM Lg Castelan [place] Poor appetite or overeating Not at all 06/03/2023 10 :49 AM Lg Castelan [place] Feeling bad about yourself - or that you are a failure or have let yourself or your family down Not at all 06/03/2023 10:49 AM Lg Castelan [place] Trouble concentrating on things, such as reading the newspaper or watching television Not at all 06/03/2023 10:49 AM Lg Castelan [place] Moving or speaking so slowly that other people could have noticed? Or the opposite - being so fidgety or restless that you have been moving around a lot more than usual. Not at all 06/03/2023 10:49 AM Lg Castelan [place] Thoughts that you would be better off or hurting yourself in some way Not at all 06/03/2023 10:49 AM Lg Castelan [place] Patient Health Questionnaire -9 Score 0 06/03/2023 10:49 AM Lg Castelan [place] documented as of this encounter Plan of Treatment Not on file documented as of this encounter Visit Diagnoses Diagnosis Mild persistent asthma without complication documented in this encounter Additional Health Concerns Assessment Noted Time PHQ-9 Depression Total Score: 0 06/03/19 10:49 AM EDT documented as of this encounter Care Teams Accounting Administrator Relationship Specialty Start Date End Date Mago Rocha NP [address] [place] [address] PCP - General Family Medicine 01/06/23 documented as of this encounter
--- OUTSIDE RECORDS SUMMARY | 2024-07-26 17:18 | XMS_ITS | Encounter Summary ---
Author Organization [employer] Address [address] [place] [address] [place] [address] Care Team Providers Care Machinist Name Role Phone Mago Rocha PIG FARMER Primary Care Provider [phone] Reason for Visit * Reason Onset Date Comments Referral 06/01/2024 Encounter Details Date Type Department Care Team ([facility] st Contact Info) Description 06/01/2024 Telephone [facility] [address] [place] [address] Mago Rocha NP [address] [place] [address] Referral Social History Tobacco Use Types Packs/Day [...] EDT Tc from pt requesting referral for panama hat smearer, pt requested to go to [facility] Specialist : Bdr Provider : Erwin Roland MD Location : [facility] documented in this encounter Plan of Treatment Not on file documented as of this encounter Visit Diagnoses Not on filedocumented in this encounter Additional Health Concerns Assessment Noted Time PHQ-9 Depression Total Score: 0 06/03/19 10:49 AM EDT documented as of this encounter Care Teams Machinist Relationship Specialty Start Date End Date Mago Rocha NP [address] [place] [phone] PCP - General Family Medicine 01/06/23 documented as of this encounter
--- OUTSIDE RECORDS SUMMARY | 2024-07-26 17:18 | XMS_ITS | Encounter Summary ---
Author Organization [employer] Address [address] [place] [address] [address] [place] [address] Care Team Providers Care Railroad Signal Operator Name Role Phone Mago Rocha NP Primary Care Provider [phone] Reason for Visit * Reason Onset Date Comments Med Refill 11/01/2023 Encounter Details Date Type Department Care Team (Late st Contact Info) Description 11/01/2023 Refill [facility] [address] [place] [address] Mago Rocha NP [address] [place] [address] Seasonal allergies Social History Tobacco Use Types [...] documented as of this encounter Care Teams Railroad Signal Operator Relationship Specialty Start Date End Date Mago Rocha NP [address] [place] [id number] PCP - General Family Medicine 01/06/23 documented as of this encounter
--- OUTSIDE RECORDS SUMMARY | 2024-07-26 17:18 | XMS_ITS | Encounter Summary ---
Author Organization [employer] Address [address] [place] [address] [place] [address] Care Team Providers Care Population Geneticist Name Role Phone Mago Rocha NP Primary Care Provider [phone] Reason for Visit * Reason Onset Date Comments Appointment Request 05/31/2024 Encounter Details Date Type Department Care Team ([facility] st Contact Info) Description 05/31/2024 Telephone [facility] [address] [place] [address] Mago Rocha NP [address] [place] [address] Appointment Request Social History Tobacco Use Types [...] with others, in a hotel, in a mcc, living outside on the street, on a [...] from pt requesting appointment for Physical , commercial real estate underwriter advised no sooner availability. documented in this encounter Plan of Treatment Not on file documented as of this encounter Visit Diagnoses Not on filedocumented in this encounter Additional Health Concerns Assessment Noted Time PHQ-9 Depression Total Score: 0 06/03/19 24 10:49 AM EDT documented as of this encounter Care Teams Population Geneticist Relationship Specialty Start Date End Date Mago Rocha NP [address] [place] [address] PCP - General Family Medicine 01/06/23 documented as of this encounter
--- OUTSIDE RECORDS SUMMARY | 2024-07-26 17:18 | XMS_ITS | Clinical Summary ---
Author Organization [employer] Address [address] [place] [address] 7t [place] [address] Care Team Providers Care Harness Installer Name Role Phone Mago Rocha NP Primary Care Provider [phone] Allergies Active Allergy Reactions Criticality Noted Date [...] mg contraceptive implant Placed 09/201809/22/19 19 Active Linzess 145 MCG capsule 06/13/19 24 Active pantoprazole (ProtoNix) 40 MG EC tablet 02/25/20 23 Active predniSONE (Deltasone) 20 MG tablet 04/20/19 24 Active albuterol (2.5 MG/3ML) 0.083% nebulizer solution Take 3 mL (2.5 mg) by nebulization every 4 (four) hours if needed for wheezing or shortness of breath. 75 mL 12/23/19 24 025 Active pyridoxine (Vitamin B-6) 25 MG tablet 50 mg. 07/07/19 23 Active amitriptyline (Elavil) 10 MG tabletIndications :Migraine without aura, not refractory TAKE 1 TABLET BY MOUTH AT BEDTIME 30 tablet 2 06/21/19 25 Active SUMAtriptan (Imitrex) 25 MG tabletIndications :Migraine without aura, not refractory TAKE 1 TABLET BY MOUTH AT ONSET OF HEADACHE. TAKE WITH NAPROXEN. MAY REPEAT DOSE ONCE IN 2 HOURS IF NO RELIEF. DO NOT EXCEED 2 DOSES IN 24 HOURS. 9 tablet 1 06/21/19 25 Active naproxen (Naprosyn) 500 MG tabletIndications :Migraine without aura, not refractory TAKE 1 TABLET Y MOUTH AT ONSET OF HEADACHE. TAKE WITH IMITREX. DO NOT TAKE MORE THAN 2 TABLETS DAILY. 60 tablet 1 06/21/19 25 Active levocetirizine (Xyzal Allergy 24HR) 5 MG tabletIndications :Seasonal allergies TAKE 1 TABLET BY MOUTH EVERY EVENING 30 tablet 11 06/21/19 25 Active budesonide-formot evonne (Symbicort) 80-4.5 MCG/ACT inhalerIndication s:Mild persistent asthma without complication INHALE 2 PUFS BY MOUTH IN THE MORNING AND EVENING. RINSE MOUTH WITH WATER AFTER USE TO REDUCE AFTERTASTE AND INCIDENCE OF CANDIDIASIS. DO NOT SWALLOW. 1 each 1 06/21/19 25 Active albuterol (Ventolin HFA) 108 (90 Base) MCG/ACT inhaler INHALE 2 PUFFS EVERY 4 HOURS IF NEEDED FOR WHEEZING. 18 g 06/21/19 25 Active Active Problems Problem Noted Date Diagnosed [...] go complete pelvic ultrasound previously ordered by [facility] provider -labs ordered to [...] Date Resolved Date Social anxiety disorder 06/13/2024 040 04/2024 Encounters * This document contains information received from the source organization and may not represent a complete record from that organization. Date Type Department Care Team Description 07/09/2024 Orders Only GENERIC EXTERNAL DATA DEPARTMENT Provider, Generic External Data 06/21/2024 Telephone [facility] [address] [place] [phone] Mago Rocha NP Chart Prep 06/20/2024 Refill [facility] [address] [place] [address] Mago Rocha NP Migraine without aura, not refractory; Seasonal allergies; Mild persistent asthma without complication 06/20/2024 Refill [facility] [address] [facility] [place] [address] Massiel Ann MD 06/13/2024 11:30 AM EDT Clinical Support [address] [place] [address] Lauren Eisenberg RN Elevated blood pressure reading without diagnosis of hypertension 06/13/2024 Travel 06/08/2024 Travel 06/07/[address] [place] [address] Mago Rocha NP Lab Orders 06/06/2024 10:30 AM EDT Office Visit [address] [place] [address] Mago Rocha NP Mild persistent asthma without complication (Primary Dx); Palpitation; Elevated blood pressure reading in office without diagnosis of hypertension 06/06/2024 Travel 06/05/2024 Travel 06/01/[address] [address] Leelee Jacobsen [place] 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 [employer] 06/01/2024 Travel 06/01/[address] [place] [address] Mago Rocha NP Referral 05/31/[address] [address] Mago Rocha NP Appointment Request from Last 3 Months Immunizations Immunization Administration Dates Next Due DTaP 01/30/2008, 5,2003,08/21,2003 [...] the past 12 months, has t he [employer], gas, oil or water company threatened to [...] 06/06/2024 10:43 AM EDT Plan of Treatment Health Maintenance Due Date Last Done Comments Alcohol/Substance Use Screening 2015 Family Planning (PISQ) 2018 Meningococcal B Vaccine (1 of 2 - Standard) 2019 Pap Smear 2024 SDOH Screening 07/19/2024 07/20/2023 [...] Procedure Name Priority Date/Time Associated Diagnosis Comments IMMUNOGLOBULINS, QUANTITATIVE, IGA, IGG, IGM Routine 07/09/2024 4:30 PM EDT FERRITIN Routine 07/09/2024 4:30 PM EDT C-REACTIVE [...] Blood Count 10.8 4.8 - 10.8 X10*3/uL [facility] Red Blood Count 4.36 4.20 - 5.50 X10*6/uL [facility] Hemoglobin 13.0 12.0 - 16.0 g/dl [facility] Hematocrit 38.6 37.0 - 47.0 % [facility] Mean Corpuscular Volume 88.5 80.0 - 98.0 fL [facility] Mean Corpuscular Hemoglobin 29.8 27.0 - 33.0 pg [facility] Mean Corpuscular HGB Conc 33.7 31.0 - 35.0 g/dl [facility] Red Cell Distribution Width 13.0 11.0 - 16.0 % [facility] Platelet Count 349 160 - 400 X10*3/uL [facility] Mean Platelet Volume 9.7 9.4 - 12.3 fL [facility] Neutrophils Percent Auto 64.2 45 - 73 % [facility] Imm Gran Pct Auto 0.4 0.0 - 0.4 % [facility] Lymphocytes Percent Auto 24.1 20 - 40 % [facility] Monocytes Percent Auto 7.2 2 - 11 % [facility] Eosinophils Percent Auto 3.7 0 - 4 % [facility] Basophils Percent Auto 0.4 0 - 2 % [facility] NRBC Pct Auto 0.0 0.0 - 0.2 /100WBC [facility] Neutrophils Absolute Auto 6.9 2.0 - 8.3 x10*3/uL [facility] Imm Gran Abs Auto 0.04(H) 0.00 - 0.03 X10*3/uL [facility] Lymphocytes Absolute Auto 2.6 1.2 - 4.9 X10*3/uL [facility] Monocytes Absolute Auto 0.8 0.1 - 1.2 X10*3/uL [facility] Eosinophils Absolute Auto 0.4 0.0 - 0.4 X10*3/uL [facility] Basophils Absolute Auto 0.0 0.0 - 0.2 X10*3/uL [facility] NRBC Abs Auto 0.000 0.0 - 0.012 X10*3/uL [facility] 07/09/2024 4:30 PM EDT 07/09/2024 4:30 PM EDT us Generic External Data Provider LAB BLOOD ORDERAB LES Final Result Performing Organization Address [facility] Co de Phone Number [facility] [address] [place] [phone] * Sed Rate by Modified Dewayneergren (07/09/2024 4:30 PM EDT) Erythrocyte Sedimentation Rate 9 0 - 20 MM/HR [facility] Comment:Patients with polycy themia and many hemoglobin abnormalitiesmay have depressed sed rates whereas patients with anemiamay have elevated sed rates. 07/09/2024 4:30 PM EDT 07/09/2024 4:30 PM EDT Generic External Data Provider LAB BLOOD ORDERAB LES Final Result Performing Organization Address [facility] Co de Phone Number [facility] [address] [place] [phone] * Immunoglobulins, Quantitative, IgA, IgG, IgM (07/09/2024 4:30 PM EDT) IMMUNOGLOBULIN G 1228 600 - 1640 mg/dL [facility] IMMUNOGLOBULIN A 269 47 - 310 mg/dL [facility] Immunoglobulin M 162 50 - 300 mg/dL [facility] Comment:THIS TEST WAS PERFOR MED AT:[facility] [place] [phone] FERREIRA MD 07/09/2024 4:30 PM EDT 07/09/2024 4:30 PM EDT us Generic External Data Provider LAB BLOOD ORDERAB LES Final Result Performing Organization Address [facility] Co de Phone Number [facility] [address] [place] [phone] * (ABNORMAL) C-reactive Protein (07/09/2024 4:30 PM EDT) C Reactive Protein 0.64(H) < or = 0.50 mg/dL [facility] 07/09/2024 4:30 PM EDT 07/09/2024 4:30 PM EDT us Generic External Data Provider LAB BLOOD ORDERAB LES Final Result Performing Organization Address City/[facility]/ZIP Co de Phone Number [facility] [address] [place] [phone] * Ferritin (07/09/2024 4:30 PM EDT) Ferritin 24 10 - 122 ng/mL [facility] 07/09/2024 4:30 PM EDT 07/09/2024 4:30 PM EDT us Generic External Data Provider LAB BLOOD ORDERAB LES Final Result Performing Organization Address [facility] Co de Phone Number [facility] [address] [place] [phone] * Comprehensive Metabolic Panel (07/09/2024 4:30 PM EDT) Sodium 141 135 - 145 mmol/L [facility] Potassium 3.9 3.3 - 5.1 mmol/L [facility] Chloride 106 96 - 108 mmol/L [facility] Carbon Dioxide 25 22 - 29 mmol/L [facility] Anion Gap 14 12 - 20 [facility] Urea Nitrogen (BUN) 12 9 - 16 mg/dL [facility] Creatinine, Serum 0.88 0.5 - 1.4 mg/dL [facility] Estimated Glomerular Filt Rate >60 [facility] Comment:Chronic Kidney Disea se: Estimated GFR < 60 mL/min/[id number] Kidney Disease: Estimated GFR < 15 mL/min/1.73m2 Glucose 88 60 - 115 mg/dL [facility] Calcium 9.5 8.4 - 10.2 mg/dL [facility] Bilirubin, Total 0.6 0.0 - 1.0 mg/dL [facility] Aspartate Amino Transferase 19 5 - 31 U/L [facility] Alanine Aminotransferase 11 0 - 31 U/L [facility] Total Protein 7.5 6.5 - 8.0 g/dL [facility] Albumin Level 4.3 3.5 - 5.0 g/dL [facility] Alkaline Phosphatase 89 39 - 117 U/L [facility] 07/09/2024 4:30 PM EDT 07/09/2024 4:30 PM EDT Generic External Data Provider LAB BLOOD ORDERAB LES Final Result Performing Organization Address [facility] Co de Phone Number [facility] [address] [place] [phone] * TSH W/Reflex to FT4 (06/09/2024 2:28 PM EDT) TSH reflex Free T4 0.77 0.32 - 4.0 uIU/mL [facility] Blood Venous blood specimen / Unknown 06/09/2024 2:28 PM EDT 06/09/2024 3:41 PM EDT Mago Rocha ANALYTICS DIRECTOR LAB BLOOD ORDERABLES Final Resu lt Performing Organization Address [facility] Co de Phone Number [facility] [address] [place] [phone] * (ABNORMAL) Basic Metabolic Panel (06/09/2024 2:28 PM EDT) Sodium 141 135 - 145 mmol/L [facility] Potassium 3.7 3.3 - 5.1 mmol/L [facility] Chloride 111(H) 96 - 108 mmol/L [facility] Carbon Dioxide 24 22 - 29 mmol/L [facility] Anion Gap 10(L) 12 - 20 [facility] Urea Nitrogen (BUN) 13 9 - 16 mg/dL [facility] Creatinine, Serum 0.71 0.5 - 1.4 mg/dL [facility] Estimated Glomerular Filt Rate >60 [facility] Comment:Chronic Kidney Disea se: Estimated GFR < 60 mL/min/[id number] Kidney Disease: Estimated GFR < 15 mL/min/1.73m2 Glucose 90 60 - 115 mg/dL [facility] Calcium 9.8 8.4 - 10.2 mg/dL [facility] Blood Venous blood specimen / Unknown 06/09/2024 2:28 PM EDT 06/09/2024 3:41 PM EDT [facility] ANALYTICS DIRECTOR LAB BLOOD ORDERABLES Final Resu lt Performing Organization Address [facility] Co de Phone Number [facility] [address] [place] [phone] * Albumin, Random Urine W/Creatinine (06/09/2024 12:00 AM EDT) Creatinine, Urine 207.59 mg/dL [facility] Microalbumin Urine 11.0 mg/L [facility] Microalbum Creatinine Ratio Ur 5.2 <30 ug/mg cr [facility] Comment:Albumin/Creatinine R atio Reference Ranges: Normal: < 30 ug/mg creatinine Microalbuminuria: 30 - 300 ug/mg creatinineClinical Albuminuria: > 300 ug/mg creatinine Urine (Urine, Random) 06/09/2024 06/09/2024 [facility] ANALYTICS DIRECTOR LAB URINE ORDERABLES Final Resu lt Performing Organization Address [facility]/ZIP Co de Phone Number [facility] [address] [place] [phone] * Hepatitis C Antibody with Reflex to HCV, RNA, Quantitative, Real-Time PCR (09/28/2023 3:54 PM EDT) Hepatitis C Antibody Nonreactive Nonreactive [facility] Comment:Antibodies to HCV no t detected; does not exclude early acuteHCV infection. Blood Venous blood specimen / Unknown 09/28/2023 3:54 PM EDT 09/28/2023 3:54 PM EDT Mago Rocha ANALYTICS DIRECTOR LAB BLOOD ORDERABLES Final Resu lt [facility] [address] [place] [phone] * Chlamydia/N. Gonorrhoeae RNA, TMA, Urogenitial (09/28/2023 3:53 PM EDT) CT PCR NOT DETECTED Not Detect. [facility] Comment:A not detected test result does [...] psychologicalconsequences. NG PCR NOT DETECTED Not Detect. [facility] Comment:A not detected test result does [...] PM EDT 09/28/2023 5:14 PM EDT Narrative [facility] - 09/28/2023 6:48 PM EDT Urine [facility] MICROBIOLOGY - GENERAL VÍCTOR INGRAM Final Result Performing Organization Address [facility]/ZIP Co de Phone Number [facility] [address] [place] [phone] * HIV-1/2 Antigen and Antibodies, Fourth Generation, with Reflexes (07/05/2023 9:51 AM EDT) [facility] HIV AB/AG Nonreactive Nonreactive [facility] Comment:HIV-1 p24 Ag and/or HIV-1/HIV-2 Ab not detected.A test result that is nonreactive does not exclude thepossibility of exposure to or infection with HIV-1 and/orHIV-2. Nonreactive results in this assay for individualswith prior exposure to HIV-1 and/or HIV-2 may be due toantigen and antibody levels that are below the limit ofdetection of this assay.The [employer] (formerly [employer]) HIV Ag/Ab Combo assay result andsupplemental assay results should be interpreted inconjunction with the patient's clinical presentation,history and other laboratory results. If the results areinconsistent with clinical evidence, additional testing issuggested to confirm the result. Blood Venous blood specimen / Unknown 07/05/2023 9:51 AM EDT 07/05/2023 9:51 AM EDT [facility] BLOOD ORDERABLES Final Resu lt Performing Organization Address City/[facility]/ZIP Co de Phone Number [facility] [address] [place] [phone] from Last 3 Months or Most Recently Relevant to Health Maintenance Insurance [employer] [place] [address] Care Teams Harness Installer Relationship Specialty Start Date End Date Mago Rocha NP [address] [place] [phone] PCP - General Family Medicine 01/06/23
--- OUTSIDE RECORDS SUMMARY | 2024-07-26 17:18 | XMS_ITS | Encounter Summary ---
Author Organization [employer] Address [address] [place] [address] [address] [place] [address] Care Team Providers Care Yarn Examiner Name Role Phone Teresatony Mago VINES Primary Care Provider [phone] Reason for Visit * Reason Onset Date Comments Med Refill 06/20/2024 Encounter Details Date Type Department Care Team (Late st Contact Info) Description 06/20/2024 Refill [facility] [address] [place] [address] Massiel Ann MD [address] [place] [address] Social History Tobacco Use Types Packs/Day Years [...] documented as of this encounter Care Teams Yarn Examiner Relationship Specialty Start Date End Date Mago Rocha NP [address] [place] [phone] PCP - General Family Medicine 01/06/23 documented as of this encounter
[2024-07-27 15:22] LABS: Adenovirus F 40/41 Not Detected (Not Detect.); Astrovirus Not Detected (Not Detect.); Campylobacter Not Detected (Not Detect.); Cryptosporidium Not Detected (Not Detect.); Cyclospora cayetanensis Not Detected (Not Detect.); E. coli EAEC Not Detected (Not Detect.); E. coli EPEC Not Detected (Not Detect.); E. coli ETEC Not Detected (Not Detect.); E. coli STEC Not Detected (Not Detect.); Entamoeba histolytica Not Detected (Not Detect.); Giardia lamblia Not Detected (Not Detect.); Plesiomonas shigelloides Not Detected (Not Detect.); Rotavirus A Not Detected (Not Detect.); Salmonella Not Detected (Not Detect.); Sapovirus Not Detected (Not Detect.); Shigella sp./EIEC Not Detected (Not Detect.); Vibrio Not Detected (Not Detect.); Vibrio Cholerae Not Detected (Not Detect.); Yersinia enterocolitica Not Detected (Not Detect.)
[2024-07-27 15:41] LABS: Norovirus GI/GII Detected (Not Detect.)
[2024-08-01 16:03] LABS: Lactoferrin, Fecal, Quant. <6.25 mcg/mL (<7.25)
== END 2024-07-26 17:17 | disposition home or self-care (01) ==
LOC: HO.LNP 17:16
PROVIDERS: Visit Provider Internal Medicine Gastroenterology
DX: R19.7 Diarrhea, unspecified (principal); R19.8 Other specified symptoms and signs involving the digestive system and abdomen; K51.50 Left sided colitis without complications
CPT/HCPCS: 83631; 87507

== ENCOUNTER 2024-08-13 08:01 | Outpatient (REF) | payer OTHER, SELFPAY ==
--- NOTE | ~2024-08-13 | US_ITS ---
CLINICAL HISTORY: N20.0 - Calculus of kidney US Renal Comparison: None Findings: Right kidney normal size and echotexture, 9.6 cm length. Multiple nonobstructing calculi the largest measuring up to 5 mm. Left kidney normal size and echotexture, 10.0 cm length. Multiple nonobstructing calculi the largest measuring up to 5 mm. No hydronephrosis of either kidney. Normal color Doppler IMPRESSION: Nonobstructing calculi bilaterally This document has been electronically signed by: Lc Mendieta MD on 08/13/2024 12:51:50
--- OUTSIDE RECORDS SUMMARY | 2024-08-13 08:05 | XMS_ITS | Clinical Summary ---
Author Organization [facility] Address [address] [place] [address] Phone Care Team Providers Care Management Engineer Name Role Phone Westley Bailey MD Primary [...] Insurance [place] Care Teams Management Engineer Relationship Specialty Start Date End Date Westley Bailey MD PCP - General Pediatrics 10/31/20
== END 2024-08-13 08:02 | disposition home or self-care (01) ==
LOC: HO.HMGCX 08:01
PROVIDERS: PCP Nurse Practitioner; Visit Provider Nurse Practitioner Family
DX: N20.0 Calculus of kidney (principal)
CPT/HCPCS: 76775

== ENCOUNTER → 2024-08-13 08:04 | Outpatient (BNV) | payer OTHER, SELFPAY | PROVIDERS: PCP Nurse Practitioner; Visit Provider Radiology Vascular & Interventional Radiology | DX: N20.0 Calculus of kidney (principal) | CPT/HCPCS: 76775 ==

== ENCOUNTER 2024-09-11 13:54 | Outpatient (AMB) | payer OTHER, SELFPAY ==
--- NOTE | 2024-09-11 14:05 | MHC.OFFWIV ---
Intake Vital Signs 09/11/24 14:09 Height 5 ft 5 in Weight 146 lb BMI 24.3 BP 108/66 Blood Pressure Location Lt brachial Position Sitting Pulse 64 Pulse Source Pulse Oximeter Temp 98.6 F Temp Source Oral Pulse Oximetry (%) 100 Oxygen Delivery Method Room Air Intake Visit Reasons: EP pain on both ear, sore throat [phone] Intake Note: pt presents with bilateral ear pain, throat ache, pain swallowing, dry cough, headache,body weakness, abdominal pain Patient Tobacco Use Status: Never used Tobacco Allergies Seasonal Allergies Allergy (Unknown, Verified 09/11/24 14:11) Unknown banana Allergy (Verified 09/11/24 14:11) Shortness of Breath kiwi Allergy (Verified 09/11/24 14:11) Shortness of Breath peanut Allergy (Verified 09/11/24 14:11) Difficulty Breathing morphine Adverse Reaction (Verified 09/11/24 14:11) Vomiting Do you need a note to return to daycare/school/sports/work: Yes HPI HPI Comments History of Present Illness Details History - The patient is a 19-year-old female presenting with ear pain and sore throat. - Symptoms started three days ago, including ear pain, sore throat, body chills, and muscle aches. 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 - History of seasonal allergies, takes medication. - Negative COVID-19 test result at home. - She is not a smoker. - She denies CP, SOB, abd pain, n/v/d, rashes, or cough. Physical Exam General: Cooperative, healthy appearing, comfortable and no acute distress Orientation/consciousness: Patient oriented x3 Head: Normal to inspection Ears: Hearing grossly normal bilaterally, external ears normal and TM's normal bilaterally Nose: Normal external nose present, normal nares present, and no nasal discharge present. Face and sinus: Sinuses nontender to palpation. Mouth: Normal oral and palatal mucosa present and moist mucous membranes noted. Throat: Tonsils normal. Uvula is midline. Posterior oropharynx with erythema and white patches present. Neck: Normal visual inspection, full ROM. Lymphadenopathy noted. Respiratory: Clear to auscultation bilaterally. Normal respiratory effort, able to speak in complete sentences. No respiratory distress, not tachypneic, no tripod positioning and no use of accessory muscles. Cardiovascular: Regular rate and rhythm. Normal S1 and S2 Skin: No rashes or lesions noted Patient was informed and verbally consented to the use of an ambient scribe for clinic note documentation during this visit [facility] Medical History (Updated 07/05/24 @ 11:06 by Vanessa Hodge MD) Hyperparathyroidism Hyperbilirubinemia Goiter Vitamin D deficiency Hypercalcemia Asthma Surgical History Hx of colonoscopy History of esophagogastroduodenoscopy (EGD) History of wisdom tooth extraction Family History Mother No known health problems Father No known health problems Social History Alcohol intake: never Patient Tobacco Use Status: Never used Tobacco Review of Systems Const All systems reviewed & are unremarkable except as noted in HPI and below Physical Exam Vital Signs: Last Vital Signs Temp 98.6 F 09/11/24 14:09 Pulse 64 09/11/24 14:09 BP 108/66 09/11/24 14:09 Pulse Ox 100 09/11/24 14:09 Oxygen Delivery Method Room Air 09/11/24 14:09 BMI result Body Mass Index 24.3 Assessment & Plan Assessment & Plan (1) Sore throat (viral): Code(s): J02.8 - Acute pharyngitis due to other specified organisms; B97.89 - Other viral agents as the cause of diseases classified elsewhere Plan Most likely strep vs viral vs URI Rapid strep in the office was negative Plan - Prescribe antibiotics for 10 days - Salt water gargles - tylenol or motrin as needed - Recommend symptomatic treatment with Tylenol or Motrin for body aches and fever. - Advise increased fluid intake. - Work note given Medications: New amoxicillin 500 mg PO Q12H 20 tabs 0RF Coding Level of Care Code Est Pt Level 3 (60263) Diagnoses Sore throat (viral) J02.8; B97.89
[2024-09-11 14:09] VITALS: BP 108/66; PULSE 64; TEMP 37; O2SAT 100; BMI 24.3
--- OUTSIDE RECORDS SUMMARY | 2024-09-11 15:05 | XMS_ITS | Encounter Summary ---
Author Organization [employer] Address [address] [place] [address] 7 [place] [address] Care Team Providers Care Processor Grain Name Role Phone TeresatonyMago NP Primary Care Provider [phone] Reason for Visit * Reason Onset Date Comments Med Refill 06/20/2024 Encounter Details Date Type Department Care Team ([facility] st Contact Info) Description 06/20/2024 Refill [facility] [address] [place] [address] Massiel Ann MD [address] [place] [address] Social History Tobacco Use Types Packs/Day Years [...] documented as of this encounter Care Teams Processor Grain Relationship Specialty Start Date End Date Mago Rocha NP [address] [place] [id number] PCP - General Family Medicine 01/06/23 documented as of this encounter
--- OUTSIDE RECORDS SUMMARY | 2024-09-11 15:05 | XMS_ITS | Clinical Summary ---
Author Organization [facility] Address [address] [place] [address] Phone Care Team Providers Care Primary Health Organisation Manager Name Role Phone Westley Bailey MD Primary [...] Insurance [place] Care Teams Primary Health Organisation Manager Relationship Specialty Start Date End Date Westley Bailey MD PCP - General Pediatrics 10/31/20
== END 2024-09-11 14:49 | disposition home or self-care (01) ==
PROVIDERS: PCP Nurse Practitioner; Visit Provider Physician Assistant Medical
DX: J02.8 Acute pharyngitis due to other specified organisms (principal); B97.89 Other viral agents as the cause of diseases classified elsewhere; Z13.9 Encounter for screening, unspecified

== ENCOUNTER → 2024-09-11 13:54 | Outpatient (BNVA) | payer OTHER, SELFPAY | PROVIDERS: PCP Nurse Practitioner; Visit Provider Physician Assistant Medical | DX: J02.8 Acute pharyngitis due to other specified organisms (principal); B97.89 Other viral agents as the cause of diseases classified elsewhere | CPT/HCPCS: 87880 ==

== ENCOUNTER 2024-09-17 12:50 | Outpatient (AMB) | payer OTHER, SELFPAY ==
[2024-09-17 13:04] VITALS: BMI 24.1
--- NOTE | 2024-09-17 13:04 | A.OFFVIS_ITS ---
VS Expanded 09/17/24 13:04 Height 5 ft 5 in Weight 145 lb 1.027 oz BMI 24.1 Intake Visit Reasons: Calculus of kidney Allergies Seasonal Allergies Allergy (Unknown, Verified 09/11/24 14:11) Unknown banana Allergy (Verified 09/11/24 14:11) Shortness of Breath kiwi Allergy (Verified 09/11/24 14:11) Shortness of Breath peanut Allergy (Verified 09/11/24 14:11) Difficulty Breathing morphine Adverse Reaction (Verified 09/11/24 14:11) Vomiting Nutrition Presentation Details: Pt presents for MNT related to calculus kidney Pt reports drinking water vs soda (has cut out sodas) 10-Breakfast ham/cheese sand with water 2 boiled eggs with ketchup lunch : bagel with cream cheese and fried in butter, water or apple juice or OJ/lemonde dinner: white rice no salt added with beans and potatoes/ham or chorizo, steamed broccoli and chicken breast snack : desserts food frequency fish: not including fruits: 1/w vegetables: once a day dairy : 0-2/day Pt has allergies to kiwi, peanut, banana BS Monitoring Most Recent Diabetes Results: Microalb/Creat Ratio, (<30) 5.2 ug/mg cr 06/09/24 Creatinine, (0.5-1.4) 0.88 mg/dL 07/09/24 BUN, (9-16) 12 mg/dL 07/09/24 Sodium, (135-145) 141 mmol/L 07/09/24 Potassium, (3.3-5.1) 3.9 mmol/L 07/09/24 Chloride, (96-108) 106 mmol/L 07/09/24 Carbon Dioxide, (22-29) 25 mmol/L 07/09/24 Calcium, (8.4-10.2) 9.5 mg/dL 07/09/24 AST, (5-31) 19 U/L 07/09/24 ALT, (0-31) 11 U/L 07/09/24 Total Protein, (6.5-8.0) 7.5 g/dL 07/09/24 Albumin, (3.5-5.0) 4.3 g/dL 07/09/24 XFK-Bembrmw-Wc.Jeor Equation Height: 5 ft 5 in Weight: 145 lb Resting Metabolic Rate: 1424.61 Calculated Activity Level: Sedentary Calories Needed to Maintain Weight: 1709.53 Diagnosis Nutrition problem #1: food nutri know defi As related to (etiology) #1: diagnosis As evidenced by (sign/symptom) #1: knowledge deficit of diet (salt/sodium content of foods and limited fiber intake) [facility] Medical History (Updated 10/01/24 @ 21:49 by Dana Roland, RD, LDN) Hyperparathyroidism Hyperbilirubinemia Goiter Vitamin D deficiency Hypercalcemia Asthma Surgical History Hx of colonoscopy History of esophagogastroduodenoscopy (EGD) History of wisdom tooth extraction Family History Mother No known health problems Father No known health problems Social History Alcohol intake: never Patient Tobacco Use Status: Never used Tobacco Assessment & Plan Assessment & Plan (1) Kidney calculus: Code(s): N20.0 - Calculus of kidney Category: Medical Plan: Wt: 66 Kg ( 10/05 ) Est kcal needs as per MSJ: 1700 (40% carb, 30% protein/fat) Est fluid needs as per 25-30 ml/d: 2000 Est prot per day as per 1 g/kg bw: 70 Recommend fiber intake : 8-10 g per day and gradually increase to 25-28 g per day for women and 35-38 g for men or as tolerated Recommend sodium intake per day : less than 2300 mg Educated patient on: ( R = reviewed V = verbalizes understanding N/R = needs review N/A = not applicable * Food sources of carbohydrate, adequate serving sizes and its role in various health conditions: R V N/R * Differences between complex carbohydrates a simple carbohydrates, role of fiber in diet: R V N/R * Lean protein sources of foods: R V NR * Differences between types of fats and role in diet (mono on saturated fat fatty acids, saturated fatty acids, trans fats): R V N/R * Food sources of sodium in salt and healthy modifications for heart health in kidney health: R * Vitamins and minerals: R V N/R * Healthy plate method concept: R V N/R * Physical activity: Benefits a precaution: R V N/R Patient Instructions: Choose low sodium seasonings - see list of choices incorporate fruits as snack Choose lean protein and less processed: see meal ideas Coding Level of Care Code Nutr Indiv Intake (69228) Diagnoses Kidney calculus N20.0 Time Spent (min) 30
--- OUTSIDE RECORDS SUMMARY | 2024-09-17 13:20 | XMS_ITS | Clinical Summary ---
Author Organization [facility] Address [address] [place] [address] Phone Care Team Providers Care Roll Carrier Name Role Phone Westley Bailey MD Primary [...] 19+ 3-dose series) 2022 Influenza Vaccine (#1) 2024 Pneumococcal Vaccine: Peds ( 0 to 5 Years) and At-Risk Patients (6 to 49 Years) Aged Out No longer eligible b ased on patient's age to complete this topic Insurance Medicaid [place] Care Teams Roll Carrier Relationship Specialty Start Date End Date Westley Bailey MD PCP - General Pediatrics 10/31/20
--- OUTSIDE RECORDS SUMMARY | 2024-09-17 13:20 | XMS_ITS | Encounter Summary ---
Author Organization [employer] Address [address] [place] [address] 7 [place] [address] Care Team Providers Care Industrial Relations Commissioner Name Role Phone TeresatonyMago NP Primary Care Provider [phone] Reason for Visit * Reason Onset Date Comments Med Refill 06/20/2024 Encounter Details Date Type Department Care Team ([facility] st Contact Info) Description 06/20/2024 Refill [facility] [address] [place] [address] Massiel Ann MD [address] [place] [address] Social History Tobacco Use Types Packs/Day Years [...] documented as of this encounter Care Teams Industrial Relations Commissioner Relationship Specialty Start Date End Date Mago Rocha NP [address] [place] [phone] PCP - General Family Medicine 01/06/23 documented as of this encounter
[2024-10-01 21:53] VITALS: BMI 24.1
== END 2024-09-17 13:40 | disposition home or self-care (01) ==
LOC: HO.ENCR 12:51
PROVIDERS: PCP Nurse Practitioner; Visit Provider Dietitian, Registered
DX: N20.0 Calculus of kidney (principal)

== ENCOUNTER → 2024-09-17 12:50 | Outpatient (BNVA) | payer OTHER, SELFPAY | PROVIDERS: PCP Nurse Practitioner; Visit Provider Dietitian, Registered | DX: N20.0 Calculus of kidney (principal); Z71.3 Dietary counseling and surveillance | CPT/HCPCS: 97802 ==

== ENCOUNTER 2024-10-29 13:20 | Outpatient (REF) | payer OTHER, SELFPAY ==
[2024-10-29 16:15] LABS: MANUAL DIFF FLAG NO
[2024-10-29 16:54] LABS: Hematocrit 41.5 % (37.0-47.0); Hemoglobin 13.6 g/dl (12.0-16.0); Imm Gran Abs Auto 0.03 X10*3/uL (0.00-0.03); Imm Gran Pct Auto 0.3 % (0.0-0.4); Lymphocytes Absolute Auto 2.9 X10*3/uL (1.2-4.9); Mean Corpuscular HGB Conc 32.8 g/dl (31.0-35.0); Mean Corpuscular Hemoglobin 29.2 pg (27.0-33.0); Mean Corpuscular Volume 89.2 fL (80.0-98.0); NRBC Abs Auto 0.000 X10*3/uL (0.0-0.012); NRBC Pct Auto 0.0 /100WBC (0.0-0.2); Platelet Count 393 X10*3/uL (160-400); Red Blood Count 4.65 X10*6/uL (4.20-5.50); White Blood Count 11.1 X10*3/uL (4.8-10.8)
[2024-10-29 17:31] LABS: Anion Gap 15 (12-20); Blood Urea Nitrogen 11 mg/dL (9-16); Calcium 10.1 mg/dL (8.4-10.2); Carbon Dioxide 25 mmol/L (22-29); Chloride 105 mmol/L (96-108); Estimated Glomerular Filt Rate > 60; Potassium 3.5 mmol/L (3.3-5.1); Sodium 141 mmol/L (135-145)
[2024-10-31 18:39] LABS: Class Alternaria alternata 2; Class Aspergillus fumigatus 2; Class Bermuda Grass 1; Class Birch 6; Class Cat Dander 0/1; Class Cladosporium herbarum 0/1; Class Cockroach 0; Class Common Ragweed 4; Class Cottonwood 3; Class Derm. pterony 3; Class Dermatophagoides farinae 3; Class Dog Dander 3; Class Elm 3; Class Maple Box Elder 2; Class Mountain Cedar 2; Class Mouse Urine Protein 3; Class Mugwort 2; Class Oak 5; Class Penicillium crysogenum 0; Class Rough Pigweed 0/1; Class Sheep Sorrel 0/1; Class Sycamore 2; Class Timothy Grass 2; Class Walnut Tree 3; Class White Ash 2; Class White Mulberry 0; D002 - IgE D farinae 8.87 kU/L; E001 - IgE Cat Dander 0.34 kU/L; E005 - IgE Dog Dander 7.43 kU/L; G006 - IgE Timothy Grass 3.43 kU/L; I006-IgE Cockroach, German <0.10 kU/L; M002 - IgE Cladosporium herbar 0.19 kU/L; M003 - IgE Aspergillus fumigat 1.06 kU/L; M006 - IgE Alternaria alternat 1.69 kU/L; T001 IgE Maple/Box Elder 2.25 kU/L; T006 - IgE Cedar, Mountain 1.12 kU/L; T007 - IgE Oak, White 68.60 kU/L; T008 IgE Elm, American 3.55 kU/L; T010 - IgE Walnut 4.89 kU/L; T011 - IgE Maple Leaf Sycamore 0.75 kU/L; T014 - IgE Cottonwood 3.60 kU/L; T015 - IgE Ash, White 1.08 kU/L; T070 - IgE White Mulberry <0.10 kU/L; W001 - IgE Ragweed, Short 28.50 kU/L; W006 - IgE Mugwort 1.31 kU/L; W014 IgE Pigweed, Common 0.11 kU/L; W018 IgE Sheep Sorrel 0.23 kU/L
[2024-11-14 08:24] LABS: Asperg fumigatus Precip Abs NEGATIVE; Micropoly faeni Abs NEGATIVE; Saccharo pora viridis Abs NEGATIVE; Thermo candidus Abs NEGATIVE
== END 2024-10-29 13:21 | disposition home or self-care (01) ==
LOC: HO.LAB 13:20
PROVIDERS: PCP Nurse Practitioner; Referring Provider Nurse Practitioner; Visit Provider Hospitalist
DX: J45.40 Moderate persistent asthma, uncomplicated (principal); R91.8 Other nonspecific abnormal finding of lung field; Z01.84 Encounter for antibody response examination; T78.40XA Allergy, unspecified, initial encounter; Z79.51 Long term (current) use of inhaled steroids; Z79.899 Other long term (current) drug therapy
CPT/HCPCS: 36415; 80048; 82785; 85025; 85652; 86003; 86331; 86606; 86609

== ENCOUNTER 2024-10-29 13:20 | Outpatient (AMB) | payer OTHER, SELFPAY ==
[2024-10-29 13:22] VITALS: BP 126/64; PULSE 98; O2SAT 98; BMI 24.4
--- NOTE | 2024-10-29 13:22 | MHC.OFFVIS ---
Vital Signs 10/29/24 13:22 Height 5 ft 5 in Weight 146 lb 9.718 oz BMI 24.4 BP 126/64 Blood Pressure Location Rt brachial Position Sitting Pulse 98 Pulse Source Pulse Oximeter Pulse Oximetry (%) 98 Oxygen Delivery Method Room Air Intake Visit Reasons: Asthma Software Technician Required: No Accompanied by: Self / Same As Patient Allergies Seasonal Allergies Allergy (Unknown, Verified 10/29/24 13:25) Unknown banana Allergy (Verified 10/29/24 13:25) Shortness of Breath kiwi Allergy (Verified 10/29/24 13:25) Shortness of Breath peanut Allergy (Verified 10/29/24 13:25) Difficulty Breathing morphine Adverse Reaction (Verified 10/29/24 13:25) Vomiting HPI Comments Details: The patient is here for pulmonary evaluation. The patient is a 19 year woman with known history of asthma in addition to allergies who apparently has been having worsening respiratory symptoms for the last few years. Initially she was placed on Symbicort and she actually did a lot better. Her asthma seems to be better control. She would use it as needed. Subsequently after that the patient has been noticing that during the winter months her breathing gets significantly worse. She also has a hard time walking long distances. She has not had any recent allergy testing. Maybe you as a child and she has significant food allergies. Because she continues to have some shortness of breath and chest tightness and coughing with the Symbicort will go ahead and optimize her respiratory therapy by adding her on Spiriva. The patient will also start allergy medicine such as Singulair. Will hold go ahead and request allergy testing and blood work. She will need PFTs. As far as imaging studies she did have a chest x-ray that I personally reviewed demonstrating no acute disease. She also had a CT scan of the abdomen which I personally reviewed the lung windows demonstrating normal lung parenchyma which is reassuring. Therefore will optimize her respiratory therapy and the patient will follow-up after her pulmonary function studies. [facility] Medical History (Updated 10/29/24 @ 22:10 by Erwin Roland MD) Allergies Hyperparathyroidism Hyperbilirubinemia Goiter Vitamin D deficiency Hypercalcemia Asthma Surgical History Hx of colonoscopy History of esophagogastroduodenoscopy (EGD) History of wisdom tooth extraction Family History Mother No known health problems Father No known health problems Social History Alcohol intake: never Patient Tobacco Use Status: Never used Tobacco Review of Systems Const Denies chills and Denies fever(s) ENT Reports nasal discharge Card Reports no additional complaints, Denies syncope and Reports dyspnea on exertion Resp Reports cough, Reports dyspnea on exertion and Reports wheezing GI Denies abdominal pain and Denies heartburn Musc Reports no additional complaints Skin/Breast Denies rash Neuro Denies syncope Palmer/Lymph Reports no additional complaints Aller/Immun Reports wheezing Physical Exam Vital Signs: Last Vital Signs Pulse 98 10/29/24 13:22 BP 126/64 10/29/24 13:22 Pulse Ox 98 10/29/24 13:22 Oxygen Delivery Method Room Air 10/29/24 13:22 BMI result Body Mass Index 24.4 Const General: comfortable Orientation/consciousness: patient oriented x3 HEENT General nose exam: Normal nasal mucous membranes and turbinates present Neck Neck: Yes supple Chest Chest palpation & inspection: normal inspection of the chest Resp Effort & Inspection: normal respiratory effort Auscultation: diminished lung sounds Cardio Heart sounds: S1 normal heart sound present and S2 normal heart sound present GI Palpation (GI): Soft to palpation Skin General skin exam: no rashes or lesions noted Neuro General: patient oriented x3 Extrem General: Yes no clubbing, cyanosis or edema Assessment & Plan Assessment & Plan (1) Asthma: Code(s): J45.909 - Unspecified asthma, uncomplicated Category: Medical Qualifiers: Asthma severity: moderate Asthma persistence: persistent Asthma complication type: uncomplicated Qualified Code(s): J45.40 - Moderate persistent asthma, uncomplicated (2) Allergies: Code(s): T78.40XA - Allergy, unspecified, initial encounter Category: Medical Qualifiers: Encounter type: initial encounter Qualified Code(s): T78.40XA - Allergy, unspecified, initial encounter Plan continue Symbicort start Spiriva start Singulair continue Xyzol bloodwork and allergy testing PFTs F/U 2-3 months Orders: Orders Complete Blood Count Auto Diff Today J45.909 - Unspecified asthma, uncomplicated, T78.40XA - Allergy, unspecified, initial encounter Basic Metabolic Panel Today J45.909 - Unspecified asthma, uncomplicated, T78.40XA - Allergy, unspecified, initial encounter Hypersensitive Pneumonitis Prf Today J - Unspecified asthma, uncomplicated, R91.8 - Other nonspecific abnormal finding of lung field, T78.40XA - Allergy, unspecified, initial encounter PFT pulmonary function test 30 Days J - Unspecified asthma, uncomplicated, T78.40XA - Allergy, unspecified, initial encounter Resp Allergy Profile Region I Today J - Unspecified asthma, uncomplicated, R91.1 - Solitary pulmonary nodule, T78.40XA - Allergy, unspecified, initial encounter Immunoglobulin E Today J - Unspecified asthma, uncomplicated, T78.40XA - Allergy, unspecified, initial encounter Erythrocyte Sedimentation Rate Today J - Unspecified asthma, uncomplicated, T78.40XA - Allergy, unspecified, initial encounter Medications: New montelukast (Singulair) 10 mg PO BEDTIME 30 tabs 11RF 30 days J - Unspecified asthma, uncomplicated tiotropium bromide 2.5 mcg/actuation (Spiriva Respimat) 2 puffs inhalation DAILY 1 ea 11RF 30 days Coding Level of Care Code New Pt Level 4 (08098) Diagnoses Moderate persistent asthma without complication J45.40 Asthma severity: moderate Asthma persistence: persistent Asthma complication type: uncomplicated Allergy, initial encounter T78.40XA Encounter type: initial encounter Time Spent (min) 40
--- OUTSIDE RECORDS SUMMARY | 2024-10-29 14:12 | XMS_ITS | Encounter Summary ---
Author Organization [employer] Address [address] [place] [address] [address] [place] [address] Care Team Providers Care Roller Bearing Inspector Name Role Phone Teresatony Mago VINES Primary Care Provider [phone] Reason for Visit * Reason Onset Date Comments Med Refill 06/20/2024 Encounter Details Date Type Department Care Team ([facility] st Contact Info) Description 06/20/2024 Refill [facility] [address] [place] [address] Massiel Ann MD [address] [place] [address] Social History Tobacco Use Types Packs/Day Years [...] with others, in a hotel, in a snf, living outside on the street, on a [...] documented as of this encounter Care Teams Roller Bearing Inspector Relationship Specialty Start Date End Date Mago Rocha NP [address] [place] [address] PCP - General Family Medicine 01/06/23 documented as of this encounter
--- OUTSIDE RECORDS SUMMARY | 2024-10-29 14:12 | XMS_ITS | Clinical Summary ---
Author Organization [facility] Address [address] [place] [address] Phone Care Team Providers Care Senior Portfolio Manager Name Role Phone Westley Bailey MD [...] Insurance [place] Care Teams Senior Portfolio Manager Relationship Specialty Start Date End Date Westely Bailey MD PCP - General Pediatrics 10/31/20
== END 2024-10-29 14:00 | disposition home or self-care (01) ==
PROVIDERS: PCP Nurse Practitioner; Referring Provider Nurse Practitioner; Visit Provider Hospitalist
DX: J45.40 Moderate persistent asthma, uncomplicated (principal); T78.40XA Allergy, unspecified, initial encounter
CPT/HCPCS: 99204

== ENCOUNTER 2024-11-15 05:56 | Day surgery (SDC) | payer OTHER, SELFPAY ==
--- OUTSIDE RECORDS SUMMARY | 2024-09-13 10:46 | XMS_ITS | Encounter Summary ---
Author Organization [employer] Address [address] [place] [address] 7 [place] [address] Care Team Providers Care Steel Pourer Helper Name Role Phone TeresatonyMago NP Primary Care Provider [phone] Reason for Visit * Reason Onset Date Comments Med Refill 06/20/2024 Encounter Details Date Type Department Care Team ([facility] st Contact Info) Description 06/20/2024 Refill [facility] [address] [place] [address] Massiel Ann MD [address] [place] [address] Social History Tobacco Use Types Packs/Day Years [...] with others, in a hotel, in a long term, living outside on the street, on a [...] documented as of this encounter Care Teams Steel Pourer Helper Relationship Specialty Start Date End Date Mago Rocha NP [address] [place] [id number] PCP - General Family Medicine 01/06/23 documented as of this encounter
--- OUTSIDE RECORDS SUMMARY | 2024-09-13 10:46 | XMS_ITS | Clinical Summary ---
Author Organization [facility] Address [address] [place] [address] Phone Care Team Providers Care Branner Machine Tender Name Role Phone Westley Bailey MD Primary [...] [place] Care Teams Branner Machine Tender Relationship Specialty Start Date End Date Westley Bailey MD PCP - General Pediatrics 10/31/20
[2024-11-13 13:24] VITALS: BMI 24.5
--- NOTE | 2024-11-14 11:03 | HO.ANESPROP2 ---
Documented by User: Aliza Shi NP 11/14/24 11:04 HPI - Anesthesia Eval Consult details Narrative: 19 yr old female for colonoscopy Persistent asthma: follows with [facility] pulm, recently started on singulair & spiriva PMFSH Active Problems Active Problems: All Active Problems (Updated 11/13/24 @ 13:20 by Zenaida Wilcox RN) Kidney calculus (Acute) Abnormal bowel habits (Acute) GERD (gastroesophageal reflux disease) (Acute) Suprapubic cramping (Acute) Difficult intravenous access (Acute) Median arcuate ligament syndrome (Acute) Epigastric abdominal pain (Acute) Endometriosis (Acute) Suprapubic pain (Acute) Bilateral nephrolithiasis (Acute) Patellofemoral syndrome of right knee (Acute) Asthma (Acute) Allergies (Acute) Hyperparathyroidism (Acute) Hyperbilirubinemia (Acute) Goiter (Acute) Vitamin D deficiency (Acute) Hypercalcemia (Acute) Past Medical History Medical History (Updated 11/13/24 @ 13:20 by Zenaida Wilcox RN) GERD (gastroesophageal reflux disease) Allergies Hyperparathyroidism Hyperbilirubinemia Goiter Vitamin D deficiency Hypercalcemia Asthma Family History Family History Mother No known health problems Father No known health problems Family history of problems with anesthesia: No Surgical History Surgical History (Updated 11/13/24 @ 13:20 by Zenaida Wilcox RN) Hx of colonoscopy History of esophagogastroduodenoscopy (EGD) History of wisdom tooth extraction History of Problems with Anesthesia: No Social History Social History Alcohol intake: never Patient Tobacco Use Status: Never used Tobacco Have you been hit, kicked, punched, or otherwise hurt by someone within the past year? If so, by whom?: No Are you DNR?: No Advance Directives: No Advance Directives Information Provided: Yes Patient : No FDLMP: last week Meds Allergies Allergy/AdvReac Type Severity Reaction Status Date / Time banana Allergy Intermediate Shortness Verified 11/13/24 13:27 of Breath kiwi Allergy Intermediate Shortness Verified 11/13/24 13:27 of Breath peanut Allergy Intermediate Difficulty Verified 11/13/24 13:27 Breathing Seasonal Allergies Allergy Intermediate Itchy Eyes Verified 11/13/24 13:27 morphine AdvReac Intermediate Vomiting Verified 11/13/24 13:27 Home Medications ?Medication ?Instructions ?Recorded ?Confirmed ?Last Taken ?Type albuterol sulfate 90 mcg/actuation 2 - 4 puff inhalation Q4H PRN 06/16/22 11/13/24 Unknown History aerosol inhaler (ProAir HFA) Shortness Of Breath etonogestrel 68 mg subdermal subdermal 06/16/22 06/16/22 Unknown History implant (Nexplanon) psyllium husk 3.4 gram/5.4 gram 1 tbsp PO BID PRN Constipation 07/27/22 07/23/22 Unknown History oral powder (Metamucil) inhalational spacing device #1 ea 12/27/22 Unknown History ([facility] spacer) sumatriptan succinate 25 mg tablet 25 mg PO ONCE migraine headache 06/13/23 11/13/24 Unknown History levocetirizine 5 mg tablet 5 mg PO DAILY 12/07/23 11/13/24 Unknown History budesonide-formoterol HFA 80 1 inh inhalation BID 09/11/24 11/13/24 Unknown History mcg-4.5 mcg/actuation aerosol inhaler linaclotide 145 mcg capsule 145 mcg PO DAILY PRN 09/11/24 11/13/24 Unknown History gastrointestinal cramping Exam Height,Weight and Vital Signs: Height 5 ft 5 in Weight 66.678 kg Assessment and Plan Final Anesthetic Review Family History of Problems with Anesthesia: No History of Problems with Anesthesia: No Documented by User: Florentin Workman MD 11/15/24 07:09 [facility] Past Medical History Medical History (Updated 11/13/24 @ 13:20 by Zenaida Wilcox RN) GERD (gastroesophageal reflux disease) Allergies Hyperparathyroidism Hyperbilirubinemia Goiter Vitamin D deficiency Hypercalcemia Asthma Family History Family History Mother No known health problems Father No known health problems Surgical History Surgical History (Updated 11/13/24 @ 13:20 by Zenaida Wilcox RN) Hx of colonoscopy History of esophagogastroduodenoscopy (EGD) History of wisdom tooth extraction Social History Social History Alcohol intake: never Patient Tobacco Use Status: Never used Tobacco Have you been hit, kicked, punched, or otherwise hurt by someone within the past year? If so, by whom?: No Are you DNR?: No Advance Directives: No Advance Directives Information Provided: Yes Patient : No FDLMP: last week Meds Allergies Allergy/AdvReac Type Severity Reaction Status Date / Time banana Allergy Intermediate Shortness Verified 11/13/24 13:27 of Breath kiwi Allergy Intermediate Shortness Verified 11/13/24 13:27 of Breath peanut Allergy Intermediate Difficulty Verified 11/13/24 13:27 Breathing Seasonal Allergies Allergy Intermediate Itchy Eyes Verified 11/13/24 13:27 morphine AdvReac Intermediate Vomiting Verified 11/13/24 13:27 Home Medications ?Medication ?Instructions ?Recorded ?Confirmed ?Last Taken ?Type albuterol sulfate 90 mcg/actuation 2 - 4 puff inhalation Q4H PRN 06/16/22 11/13/24 Unknown History aerosol inhaler (ProAir HFA) Shortness Of Breath etonogestrel 68 mg subdermal subdermal 06/16/22 06/16/22 Unknown History implant (Nexplanon) psyllium husk 3.4 gram/5.4 gram 1 tbsp PO BID PRN Constipation 07/27/22 07/23/22 Unknown History oral powder (Metamucil) inhalational spacing device #1 ea 12/27/22 Unknown History (Verónica Telles [facility] spacer) sumatriptan succinate 25 mg tablet 25 mg PO ONCE migraine headache 06/13/23 11/13/24 Unknown History levocetirizine 5 mg tablet 5 mg PO DAILY 12/07/23 11/13/24 Unknown History budesonide-formoterol HFA 80 1 inh inhalation BID 09/11/24 11/13/24 Unknown History mcg-4.5 mcg/actuation aerosol inhaler linaclotide 145 mcg capsule 145 mcg PO DAILY PRN 09/11/24 11/13/24 Unknown History gastrointestinal cramping Exam Airway Mallampati Class: II TM Dist: <=3cm Neck ROM: Full Heart: ok Lungs: ok Assessment and Plan Assessment Anesthesia Assessment: Anesthesia Plan Discussed and Chart Reviewed Final Anesthetic Review NPO: Yes ASA Class: II Final Preanesthetic Review: No Changes in Pt Med Stat, Meds/Allgs Chart Reviewed and Consent Obtained/Reviewed Patient Risk: Low Procedure Risk: Low Anesthetic Plan Anesthetic Plan: MAC: and Agree w/ Assess. and Plan Disposition: Standard PACU
[2024-11-15 06:23] VITALS: BP 139/87; PULSE 108; RESP 16; TEMP 36.4; O2SAT 97; BMI 24.6
[2024-11-15] MEDS: Lactated Ringers 1,000 ML 100 ML IVCONT (06:44)
[2024-11-15 07:08] LABS: UPreg QC Valid YES
--- NOTE | 2024-11-15 07:40 | MHC.SHP ---
Pre-Procedural Eval Section A - 24 Hr Update-Section A only Date of Service: 11/15/24 Section B - Complete if H&P > 30 days Chief Complaint: Other fecal abnormalities Relevant Family History (Specify if Yes): No Relevant Social History: None Present Medications: see Short Stay Collaborative assessment Medical History: Significant History (GERD (gastroesophageal reflux disease) Allergies Hyperparathyroidism Hyperbilirubinemia Goiter Vitamin D deficiency Hypercalcemia Asthma) History of Previous Operations: Relevant previous surgery/procedure and date(s) (Hx of colonoscopy History of esophagogastroduodenoscopy (EGD) History of wisdom tooth extraction) Allergies: Allergies Allergy/AdvReac Type Severity Reaction Status Date / Time banana Allergy Intermediate Shortness Verified 11/13/24 13:27 of Breath kiwi Allergy Intermediate Shortness Verified 11/13/24 13:27 of Breath peanut Allergy Intermediate Difficulty Verified 11/13/24 13:27 Breathing Seasonal Allergies Allergy Intermediate Itchy Eyes Verified 11/13/24 13:27 morphine AdvReac Intermediate Vomiting Verified 11/13/24 13:27 Review of Systems Sugical H&P ROS: Negative: Constitution, Cardiovascular, Respiratory, Neurological, Psychiatric, Hem-Onc, Allergic/Immunologic, Gastrointestinal, Genitourinary, Musculoskeletal, Integumentary, Endocrine and Eyes/Ears/Nose/Throat Exam Surgical H&P Exam: Normal: HEENT, Normal: Heart, Normal: Lungs, Normal: Extremities, Normal: Abdomen, Normal: Skin and Normal: Neurological Plan Diagnosis/Plan: Unchanged I have reviewed the history and physical and performed a pertinent physical examination on my patient. No changes have occurred unless specified. Time Spent With Patient Time: Total time managing care of this patient today ____ minutes.
--- NOTE | 2024-11-15 07:56 | P.OPN-COLO_ITS ---
Colonoscopy Operative Note Operative Note Date of Service: 11/15/24 Narrative: Operative Information Procedure Description: Colonoscopy Indication: hx of eosinophilic colitis Anesthesia: MAC COLONOSCOPY Instrument: Olympus variable stiffness pediatric scope 190L Colonoscopy Monitoring: Vital signs and clinical assessment, continuous EKG monitoring, Pulse oximetry, Carbon Dioxide monitoring and blood pressure monitoring were done throughout the procedure. Colon withdrawal time was 10 minutes. Procedure: The patient was placed in the left lateral decubitis position and pre-procedure medications were administered. After a digital rectal examination of the ano-rectum, the video colonoscope was inserted into the rectum and advanced through the colon to the cecum/TI. The colonoscope was slowly withdrawn in a retrograde panoramic fashion and the colon mucosa was carefully examined including a retroflexed view of the rectum. Findings and interventions are described below. Procedure Difficulty: easy Findings: Terminal Ileum-normal, bx taken Cecum: prominent lymph follicles, bx taken Ascending Colon: normal , bx taken Transverse Colon -normal Descending Colon:normal, bx taken Sigmoid Colon: normal, bx taken Rectum: Retroflexion with small internal hemorrhoids seen, grade I, mild erythema, prob prep artifact, bx taken Anorectum - normal Intervention: cold forceps Colon preparation: [place] Bowel Preparation Scale Right colon; 3 Transverse colon: 3 Left colon; 3 (0 = Unprepared colon segment with mucosa not seen due to solid stool that cannot be cleared. 1 = Portion of mucosa of the colon segment seen, but other areas of the colon segment not well seen due to staining, residual stool and/or opaque liquid. 2 = Minor amount of residual staining, small fragments of stool and/or opaque liquid, but mucosa of colon segment seen well. 3 = Entire mucosa of colon segment seen well with no residual staining, small fragments of stool or opaque liquid) Impression and Post Procedure Diagnosis: internal hemorrhoids Plan: High fiber diet leaflet Avoid straining at stool, epsom salts and sitz bath, anusol supps or cream Repeat Colonoscopy as needed Above findings were reviewed with the patient and relevant handouts were provided if indicated.
[2024-11-15 08:04] VITALS: BP 104/59; PULSE 95; RESP 16; TEMP 36.4; O2SAT 99
[2024-11-15 08:11] VITALS: BP 104/66; PULSE 86; RESP 16; O2SAT 99
[2024-11-15 08:21] VITALS: BP 110/64; PULSE 84; RESP 16; TEMP 36.4; O2SAT 99
[2024-11-21 01:44] LABS: Lactoferrin, Fecal, Quant. <6.25 mcg/mL (<7.25)
== END 2024-11-15 08:39 | disposition home or self-care (01) ==
PROVIDERS: Nurse Practitioner; PCP Nurse Practitioner; Visit Provider Internal Medicine Gastroenterology
PROC: 0DJD8ZZ Inspection of Lower Intestinal Tract, Via Natural or Artificial Opening Endoscopic (ICD-10-PCS; CPT 45378; principal; 2024-11-15 07:30)
DX: R19.5 Other fecal abnormalities (principal); K64.0 First degree hemorrhoids; R10.2 Pelvic and perineal pain; K21.9 Gastro-esophageal reflux disease without esophagitis; E55.9 Vitamin D deficiency, unspecified; E21.3 Hyperparathyroidism, unspecified; J45.909 Unspecified asthma, uncomplicated; Z79.899 Other long term (current) drug therapy
CPT/HCPCS: 45380; 81025; 83631; 88305; J2003; J2704; J3010

== ENCOUNTER → 2024-11-15 05:56 | Outpatient (BNV) | payer OTHER, SELFPAY | PROVIDERS: PCP Nurse Practitioner; Visit Provider Internal Medicine Gastroenterology | DX: Z12.11 Encounter for screening for malignant neoplasm of colon (principal); Z87.19 Personal history of other diseases of the digestive system; K64.0 First degree hemorrhoids | CPT/HCPCS: 45380 ==

== ENCOUNTER 2025-01-02 08:29 | Outpatient (AMB) | payer OTHER, SELFPAY ==
[2025-01-02 08:38] VITALS: BMI 25.2
--- NOTE | 2025-01-02 08:38 | A.OFFVIS_ITS ---
VS Expanded 01/02/25 08:38 Height 5 ft 5 in Weight 151 lb 3.794 oz BMI 25.2 Intake Visit Reasons: Kidney stones Allergies banana Allergy (Intermediate, Verified 01/02/25 10:45) Shortness of Breath kiwi Allergy (Intermediate, Verified 01/02/25 10:45) Shortness of Breath peanut Allergy (Intermediate, Verified 01/02/25 10:45) Difficulty Breathing Seasonal Allergies Allergy (Intermediate, Verified 01/02/25 10:45) Itchy Eyes morphine Adverse Reaction (Intermediate, Verified 01/02/25 10:45) Vomiting Nutrition Presentation Details: Pt presents for MNT related to kidney stones Pt reports working on choosing less highly processed foods and reducing on empty calorie foods acknowledges challenges with portion sizes Reports noticing GI symptoms after consuming dairy B: eggs/cheese) L: mac and cheese and protein D: soups (chicken/noodles/carrots) and crackers physical activity: has started using treadmill 15 minutes , 3 times week Beverages: water , sometimes juice BS Monitoring Most Recent Diabetes Results: Creatinine, (0.5-1.4) 0.71 mg/dL 10/29/24 BUN, (9-16) 11 mg/dL 10/29/24 Sodium, (135-145) 141 mmol/L 10/29/24 Potassium, (3.3-5.1) 3.5 mmol/L 10/29/24 Chloride, (96-108) 105 mmol/L 10/29/24 Carbon Dioxide, (22-29) 25 mmol/L 10/29/24 Calcium, (8.4-10.2) 10.1 mg/dL Δ 10/29/24 [facility] Medical History (Updated 01/02/25 @ 10:58 by Erwin Roland MD) Chronic restrictive lung disease GERD (gastroesophageal reflux disease) Allergies Hyperparathyroidism Hyperbilirubinemia Goiter Vitamin D deficiency Hypercalcemia Asthma Surgical History (Updated 11/13/24 @ 13:20 by Zenaida Wilcox RN) Hx of colonoscopy History of esophagogastroduodenoscopy (EGD) History of wisdom tooth extraction Family History Mother No known health problems Father No known health problems Social History Alcohol intake: never Patient Tobacco Use Status: Never used Tobacco Assessment & Plan Assessment & Plan (1) Kidney calculus: Code(s): N20.0 - Calculus of kidney Category: Medical Plan: Wt: 66 Kg ( 10/05 ), 68 kg(01/05) Est kcal needs as per MSJ: 1700 (40% carb, 30% protein/fat) Est fluid needs as per 25-30 ml/d: 2000 Est prot per day as per 1 g/kg bw: 70 Recommend fiber intake : 8-10 g per day and gradually increase to 25-28 g per day for women and 35-38 g for men or as tolerated Recommend sodium intake per day : less than 2300 mg Educated patient on: ( R = reviewed V = verbalizes understanding N/R = needs review N/A = not applicable * Food sources of carbohydrate, adequate serving sizes and its role in various health conditions: R V N/R * Differences between complex carbohydrates a simple carbohydrates, role of fiber in diet: R V N/R * Lean protein sources of foods: R V NR * Differences between types of fats and role in diet (mono on saturated fat fatty acids, saturated fatty acids, trans fats): R V N/R * Food sources of sodium in salt and healthy modifications for heart health in kidney health: R * Vitamins and minerals: R V N/R * Healthy plate method concept: R V N/R * Physical activity: Benefits a precaution: R Patient Instructions: Continue working on choosing low fat food options Try lactose free milk (1% lactose free, low fat fairlife milk), lactose free food choices watch portion sizes Coding Level of Care Code Nutr Indiv Subseq (68660) Diagnoses Kidney calculus N20.0 Time Spent (min) 30
--- OUTSIDE RECORDS SUMMARY | 2025-01-02 08:48 | XMS_ITS | Clinical Summary ---
Author Organization [facility] Address [address] [place] [address] Phone Care Team Providers Care Director Of Strategic Programs Name Role Phone Westley Bailey MD Primary [...] [place] Care Teams Director Of Strategic Programs Relationship Specialty Start Date End Date Westley Bailey MD PCP - General Pediatrics 10/31/20
== END 2025-01-02 09:03 | disposition home or self-care (01) ==
LOC: HO.ENCR 08:30
PROVIDERS: PCP Nurse Practitioner; Visit Provider Dietitian, Registered
DX: N20.0 Calculus of kidney (principal)

== ENCOUNTER 2025-01-02 09:39 | Outpatient (REF) | payer OTHER, SELFPAY ==
--- NOTE | 2025-01-02 10:08 | PFT_ITS ---
Indication: Asthma Spirometry FEV1 to FVC 89%; FEV1 2.74 L; FVC 3.09 L. There is a significant response to bronchodilators noted. To note the FEF 25/75 is decreased to 57% predicted consistent with a history of asthma Lung Volumes Total lung capacity 71% predicted; residual volume 58% predicted; expiratory reserve volume 30% predicted Diffusion Capacity DLCO 87% predicted MVV 70% predicted Comparisons None Interpretation No obstructive ventilatory defects. The patient did have a significant response to bronchodilators noted. The patient also has significant small airways disease consistent with a history of asthma. The patient also has a mild restrictive ventilatory defect unclear etiology. Her expiratory reserve volume is decreased therefore suggesting hypo expansion of the lungs. Diffusing capacity is within normal limits. Clinical correlation warranted. MTDD
[2025-01-02 10:56] VITALS: PULSE 78; O2SAT 98
== END 2025-01-02 09:40 | disposition home or self-care (01) ==
LOC: HO.RESP 09:39
PROVIDERS: PCP Nurse Practitioner; Visit Provider Hospitalist
DX: N20.0 Calculus of kidney (principal); J45.909 Unspecified asthma, uncomplicated; T78.40XA Allergy, unspecified, initial encounter; Z71.3 Dietary counseling and surveillance; Z68.25 Body mass index [BMI] 25.0-25.9, adult
CPT/HCPCS: 94060; 94640; 94727; 94729; 97803

== ENCOUNTER 2025-01-02 10:42 | Outpatient (AMB) | payer OTHER, SELFPAY ==
[2025-01-02 10:44] VITALS: BP 120/70; PULSE 98; O2SAT 96; BMI 25.3
--- NOTE | 2025-01-02 10:44 | MHC.OFFVIS ---
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: No Accompanied by: self Allergies banana Allergy (Intermediate, Verified 01/02/25 10:45) Shortness of Breath kiwi Allergy (Intermediate, Verified 01/02/25 10:45) Shortness of Breath peanut Allergy (Intermediate, Verified 01/02/25 10:45) Difficulty Breathing Seasonal Allergies Allergy (Intermediate, Verified 01/02/25 10:45) Itchy Eyes morphine Adverse Reaction (Intermediate, Verified 01/02/25 10:45) Vomiting HPI Comments Details: The patient is a 19 year woman with known history of asthma in addition to allergies who apparently has been having worsening respiratory symptoms for the last few years. Initially she was placed on Symbicort and she actually did a lot better. Her asthma seems to be better control. She would use it as needed. Subsequently after that the patient has been noticing that during the winter months her breathing gets significantly worse. She also has a hard time walking long distances. She has not had any recent allergy testing. Maybe you as a child and she has significant food allergies. Because she continues to have some shortness of breath and chest tightness and coughing with the Symbicort will go ahead and optimize her respiratory therapy by adding her on Spiriva. The patient will also start allergy medicine such as Singulair. Will hold go ahead and request allergy testing and blood work. She will need PFTs. As far as imaging studies she did have a chest x-ray that I personally reviewed demonstrating no acute disease. She also had a CT scan of the abdomen which I personally reviewed the lung windows demonstrating normal lung parenchyma which is reassuring. Therefore will optimize her respiratory therapy and the patient will follow-up after her pulmonary function studies. 01/02/2025 the patient is here for pulmonary follow-up visit. The patient overall has been feeling little better. She started the Spiriva along with the Symbicort and has been helping her some. She still requires her rescue inhaler multiple times a week. In addition to that we did review her allergies and the patient does have significant allergies to mold in addition to a lot of environmental factors. Her IgE significantly elevated and also he eosinophils are significantly elevated. She is complaining of eczema that is affecting her face a close to her eyes which is very uncomfortable for her. In addition to that she complains of chronic rhinitis consistent with atopic asthma. The patient has been on maximum respiratory therapy. She did undergo pulmonary function studies even on maximum respiratory therapy she did have significant small airways disease consistent with her significant asthma and did have a significant response to bronchodilators. In addition to that she did have a mild restriction PFTs have unclear etiology. Therefore I will have her have another x-ray. In addition to that get her neck it looks full suggesting goiter. There is a history of goiter. Although he has not been further evaluated. Will have her get an ultrasound of the thyroid to better address it. She will need to follow-up with Endocrine if indeed she has a goiter. [facility] Medical History (Updated 01/02/25 @ 10:58 by Erwin Roland MD) Chronic restrictive lung disease GERD (gastroesophageal reflux disease) Allergies Hyperparathyroidism Hyperbilirubinemia Goiter Vitamin D deficiency Hypercalcemia Asthma Surgical History (Updated 11/13/24 @ 13:20 by Zenaida Wilcox RN) Hx of colonoscopy History of esophagogastroduodenoscopy (EGD) History of wisdom tooth extraction Family History Mother No known health problems Father No known health problems Social History Alcohol intake: never Patient Tobacco Use Status: Never used Tobacco Review of Systems Const Denies chills and Denies fever(s) ENT Reports nasal discharge Card Reports no additional complaints, Denies syncope and Reports dyspnea on exertion Resp Reports cough, Reports dyspnea on exertion and Reports wheezing GI Denies abdominal pain and Denies heartburn Musc Reports no additional complaints Skin/Breast Reports rash Neuro Denies syncope Palmer/Lymph Reports no additional complaints Aller/Immun Reports wheezing Physical Exam Vital Signs: Last Vital Signs Pulse 98 01/02/25 10:44 BP 120/70 01/02/25 10:44 Pulse Ox 96 01/02/25 10:44 Oxygen Delivery Method Room Air 01/02/25 10:44 BMI result Body Mass Index 25.3 Const General: comfortable Orientation/consciousness: patient oriented x3 HEENT General nose exam: Normal nasal mucous membranes and turbinates present Neck Thyroid: diffusely enlarged Chest Chest palpation & inspection: normal inspection of the chest Resp Effort & Inspection: normal respiratory effort Auscultation: diminished lung sounds Cardio Heart sounds: S1 normal heart sound present and S2 normal heart sound present GI Palpation (GI): Soft to palpation Skin General skin exam: no rashes or lesions noted Neuro General: patient oriented x3 Extrem General: Yes no clubbing, cyanosis or edema Assessment & Plan Assessment & Plan (1) Chronic restrictive lung disease: Code(s): J98.4 - Other disorders of lung Category: Medical (2) Goiter: Code(s): E04.9 - Nontoxic goiter, unspecified Category: Medical (3) Asthma: Code(s): J45.909 - Unspecified asthma, uncomplicated Category: Medical Qualifiers: Asthma severity: moderate Asthma persistence: persistent Asthma complication type: uncomplicated Qualified Code(s): J45.40 - Moderate persistent asthma, uncomplicated (4) Allergies: Code(s): T78.40XA - Allergy, unspecified, initial encounter Category: Medical Qualifiers: Encounter type: initial encounter Qualified Code(s): T78.40XA - Allergy, unspecified, initial encounter Plan continue Symbicort continue Spiriva continue Singulair continue Xyzol start Dupixent CXR Thyroid US F/U 3-4 months Orders: Orders US thyroid Today E04.9 - Nontoxic goiter, unspecified XR chest 2V Today J98.4 - Other disorders of lung Coding Level of Care Code Est Pt Level 4 (46073) Diagnoses Chronic restrictive lung disease J98.4 Goiter E04.9 Moderate persistent asthma without complication J45.40 Asthma severity: moderate Asthma persistence: persistent Asthma complication type: uncomplicated Allergy, initial encounter T78.40XA Encounter type: initial encounter Time Spent (min) 17
== END 2025-01-02 11:02 | disposition home or self-care (01) ==
LOC: HO.HPS 10:42
PROVIDERS: PCP Nurse Practitioner; Visit Provider Hospitalist
DX: J98.4 Other disorders of lung (principal); E04.9 Nontoxic goiter, unspecified; J45.40 Moderate persistent asthma, uncomplicated; T78.40XA Allergy, unspecified, initial encounter
CPT/HCPCS: 99214

== ENCOUNTER 2025-01-05 11:48 | Outpatient (REF) | payer OTHER, SELFPAY ==
--- NOTE | ~2025-01-05 | XR_ITS ---
EXAMINATION: XR CHEST CLINICAL INFORMATION: J98.4 - Other disorders of lung COMPARISON: Chest x-ray 04/19/2023. TECHNIQUE: 2 views of the chest were obtained. FINDINGS: The lungs are well-expanded and clear acute process. The heart size and pulmonary vascularity is normal. There is minimal dextroscoliosis lower dorsal spine. Otherwise no gross bony abnormality. XR/XR chest 2V IMPRESSION: Unremarkable chest examination. Electronically signed by: Vel Campuzano MD 01/07/2025 07:11 AM EDT
--- OUTSIDE RECORDS SUMMARY | 2025-01-05 11:51 | XMS_ITS | Encounter Summary ---
Author Organization [employer] Address [address] [place] [address] [address] [place] [address] Care Team Providers Care Bridge Teacher Name Role Phone Mago Rocha NP Primary Care Provider [phone] Encounter Details Date Type Department Care Team ([facility] st Contact Info) Description 11/30/2024 Results Follow-Up [facility] [address] [place] [address] Mago Rocha NP [address] [place] [address] HCG, Qualitative, Urine, Hematoxylin and Eosin Stain, Lactoferrin, Quantitative, Stool Social History Tobacco Use Types Packs/Day Years [...] with others, in a hotel, in a alf, living outside on the street, on a [...] documented as of this encounter Care Teams Bridge Teacher Relationship Specialty Start Date End Date Mago Rocha NP [address] [place] [id number] PCP - General Family Medicine 01/06/23 documented as of this encounter
--- OUTSIDE RECORDS SUMMARY | 2025-01-05 11:51 | XMS_ITS | Encounter Summary ---
Author Organization [employer] Address [address] [place] [address] [address] [place] [address] Care Team Providers Care House Worker Name Role Phone Mago Rocha NP Primary Care Provider [phone] Reason for Visit * Reason Onset Date Comments Med Refill 11/01/2023 Encounter Details Date Type Department Care Team (Late st Contact Info) Description 11/01/2023 Refill [facility] [address] [place] [address] Mago Rocha NP [address] [place] [address] Seasonal allergies Social History Tobacco Use Types [...] with others, in a hotel, in a usp, living outside on the street, on a [...] documented as of this encounter Care Teams House Worker Relationship Specialty Start Date End Date Mago Rocha NP [address] [place] [id number] PCP - General Family Medicine 01/06/23 documented as of this encounter
--- OUTSIDE RECORDS SUMMARY | 2025-01-05 11:51 | XMS_ITS | Clinical Summary ---
Author Organization [employer] Address [address] [place] [address] [address] [place] [address] Care Team Providers Care Double Cutter Name Role Phone Mago Rocha NP Primary Care Provider [phone] Allergies Active Allergy Reactions Criticality Noted Date [...] shortness of breath. 75 mL 12/23/19 24 Active pyridoxine (Vitamin B-6) 25 MG tablet [...] FOR WHEEZING. 18 g 06/21/19 25 Active montelukast (Singulair) 10 MG tablet Take 10 mg by mouth at bedtime. 10/30/19 25 Active Spiriva Respimat 2.5 MCG/ACT inhaler Inhale 2 puffs Once per day. 10/30/19 25 Active dupilumab (Dupixent) 300 MG/2ML solution prefilled syringe injection Inject under the skin. Active Active Problems Problem Noted Date Diagnosed Date Social anxiety disorder 06/13/2024 Muscle spasm 09/28/2023 Dysuria 09/28/2023 Assessment [...] go complete pelvic ultrasound previously ordered by [facility] GI provider -labs ordered to r/o STI [...] Mild persistent asthma 12/19/2017 Assessment & Plan (08/13/2024 9:34 AM EDT): -patient is asymptomatic at this time -referral to pulm placed for further management as requested Assessment & Plan (12/23/2023 12:05 PM EDT): [...] Social anxiety disorder 06/13/2024 04/0 04/2024 Encounters Date Type Department Care Team Description 01/03/2025 Orders Only [facility] [address] [place] [phone] Jef Cevallos MD 11/30/2024 Results Follow-Up [address] [address] Mago Rocha NP HCG, Qualitative, Urine, Hematoxylin and Eosin Stain, Lactoferrin, Quantitative, Stool 11/26/[address] [address] Mago Rocha NP Seasonal allergies 11/15/2024 Orders Only GENERIC EXTERNAL DATA DEPARTMENT Provider, Generic External Data 11/01/2024 Results Follow-Up [address] [address] Mago Rocha NP CBC auto differential, Basic Metabolic Panel, Sed Rate by Modified Westergren, Additional followed-up results: 4 10/31/2024 Orders Only [address] [address] Mago Rocha NP 10/30/[address] [address] Mago Rocha NP Seasonal allergies 10/29/2024 Orders Only GENERIC EXTERNAL DATA DEPARTMENT Provider, Generic External Data from Last 3 Months Immunizations Immunization Administration [...] with others, in a hotel, in a custodial, living outside on the street, on a [...] 102 06/13/2024 11:54 AM EDT Temperature 37.2 C (99 F) 06/06/2024 10:43 AM EDT Respiratory Rate 18 [...] 07/20/2023 Chlamydia and Gonorrhea Screening 09/27/2024 09/28/2023 Influenza Vaccine (#1) 2024 , 06/03/2020, 12/05/2018, Additional history exists DTaP/Tdap/Td Vaccines (7 - Td or Tdap) 01/07/2025 01/07/2015, 01/30/2008, 08/27/2004, Additional history exists Disability Screening 06/05/2025 06/05/2024 Depression Screening 06/06/2025 06/06/2024, 06/07/19 Tobacco Screening [...] Completed 12/23/2023, , 07/30/2020, Additional history exists Pneumococcal Vaccine: Pediatrics (0 to 5 Years) and At-Risk Patients (6 to 49) Years Completed 01/03/2024, 08/27/2004, 2003, Additional history exists RSV under 20 months Aged Out No longe r eligible based on patient's age to complete this topic Rotavirus Vaccines Aged Out No longer eligible based on patient's age to complete this topic Procedures Procedure Name Priority Date/Time Associated Diagnosis Comments LACTOFERRIN, QN, STOOL Routine 7:58 AM EDT HEMATOXYLIN AND EOSIN STAIN Routine 11/15/2024 7:51 AM EDT HCG, QL, URINE Routine 11/15/2024 7:00 AM EDT HYPERSENSITIVITY PNUEMONITIS PROFILE Routine 10/29/2024 4:12 PM EDT RESPIRATORY ALLERGY PROFILE REGION I Routine 10/29/2024 4:12 PM EDT IMMUNOGLOBULIN E Routine 10/29/2024 4:12 PM EDT SED RATE BY MODIFIED WESTERGREN Routine 10/29/2024 4:12 PM EDT BASIC METABOLIC PANEL Routine 10/29/2024 4:12 PM EDT CBC WITH AUTO DIFFERENTIAL Routine 10/29/2024 4:12 PM EDT RAST ALLERGEN (NON ORDERABLE) Routine 10/29/2024 12:00 AM EDT HEPATITIS C AB W/REFL TO HCV RNA, QN, PCR Routine 09/28/2023 3:54 PM EDT Annual physical exam CHLAMYDIA/N. GONORRHOEAE RNA, TMA, UROGENITAL Routine 09/28/2023 3:53 PM EDT Abnormal uterine bleeding HIV 1/2 ANTIGEN/ANTIBODY, FOURTH GENERATION W/RFL Routine 07/05/2023 9:51 AM EDT Abnormal uterine bleeding from Last 3 Months or Most Recently Relevant to Health Maintenance Results * Lactoferrin, Quantitative, Stool (11/15/2024 7:58 AM EDT) Lactoferrin, Qn, Stool <6.25 <7.25 mcg/mL [facility] Comment:The following patien t samples should be excluded from use inthe test: patients with a history of HIV and/or havehepatitis B or C, patients with a history of infectiousdiarrhea (within 6 months), and patients having had acolostomy and or ileostomy within 1 month.THIS TEST WAS PERFORMED AT:[id number] [place] [address]VDIEUJOEL LOPEZ MD,PHD,LIZ 11/15/2024 7:58 AM EDT 11/15/2024 8:09 AM EDT us Generic External Data Provider LAB BODY FLUIDS A ND STOOLS ORDERABLES Final Result [facility] [address] [place] [phone] * Hematoxylin and Eosin Stain (11/15/2024 7:51 AM EDT) 11/15/2024 7:51 AM EDT 11/15/2024 8:18 AM EDT Narrative [facility] - 11/16/2024 1:07 PM EDT ----- ------- Name: Stephanie Garibay Age/Sex: 19/F : 2005 Unit#: [id number] Attend Dr: Vanessa Hodge MD Re11/15/24 Status: [facility] Location: [facility] Disch: ----- ------- SPEC : [id number] RECD: 11/15/24 STATUS: ZARA LEYVA NUM: [id number] JOSIAH: 11/15/24 [facility] DR: Vanessa Hodge MD ENTERED: 11/15/24 SP TYPE: Surgical OTHR DR: Mago Rocha ORDERED: HE Stain/15, Gross Micro L4/5 Diagnosis A. Terminal ileum, biopsy: Ileal mucosa with focal mild increased eosinophils, otherwise no specific change. B. Colon, cecum, biopsy: Colonic mucosa with lymphoid aggregates and no specific change. C. Colon, right, biopsy: Colonic mucosa with no specific change. D. Colon, left, biopsy: Colonic mucosa with lymphoid aggregates and focal mild increased eosinophils, otherwise no specific change. E. Colon, rectum, biopsy: Colonic mucosa with mild hyperplastic changes, otherwise no specific change. Comment: No organisms, neutrophils, vasculitis, or granulomas are identified. Appearances do not suggest chronic inflammatory bowel disease, and there is no evidence of lymphocytic or collagenous colitis. The tissue is predominantly normal and the findings are mild and nonspecific. A drug-induced reaction cannot be excluded. Clinical History Pre-Op Dx: History of eosinophils colitis Post-Op Dx: Internal hemorrhoids Microscopic Description Microscopic sections reviewed. Material Received A. Terminal ileum bx's B. Cecal bx's C. Right side colon bx's D. Left side colon bx's E. Rectal bx's Gross Description Received in five parts. Part A: Received in formalin labeled terminal ileum bx's are two teague irregular and rectangular tissue fragments measuring 0.2 and 0.4 cm, submitted in toto in a cassette CONTINUED ON NEXT PAGE ----- ------- Name: Stephanie Garibay Age/Sex: 19/F : 2005 Unit#: [id number] Attend Dr: Vanessa Hodge MD Re11/15/24 Status: [facility] Location: [facility] Disch: ----- ------- SPEC : [id number] RECD: 11/15/24 STATUS: ZARA LEYVA NUM: [id number] JOSIAH: 11/15/24 [facility] DR: Vanessa Hodge MD ENTERED: 11/15/24 SP TYPE: Surgical OTHR DR: Mago Rocha ORDERED: HE Stain/15, Gross Micro L4/5 Gross Description (Continued) labeled A. Part B: Received in formalin labeled cecal bx's are four sweet-teague irregular tissue fragments ranging from 0.1-0.3 cm, submitted in toto in a cassette labeled B. Part C: Received in formalin labeled right side colon bx's are three sweet-teague irregular tissue fragments ranging from 0.1-0.3 cm, submitted in toto in a cassette labeled C. Part D: Received in formalin labeled left side colon bx's are three sweet-teague irregular and rectangular tissue fragments ranging from 0.2-0.3 cm, submitted in toto in a cassette labeled D. Part E: Received in formalin labeled rectal bx's are two teague irregular tissue fragments measuring 0.1 and 0.3 cm, submitted in toto in a cassette labeled E. CEDS IHC S/NG Disclaimer NOTE: Unless otherwise stated, all tissue is formalin-fixed and paraffin-embedded. Some or all of the immunohistochemical tests reported herein may have been developed and their performance characteristics determined by [facility]. They have not been cleared or approved by the U.S. Food and Drug Administration (FDA). However, the FDA has determined that such clearance or approval is not necessary. This laboratory is certified under the Clinical Laboratory Improvement Amendments of 1988 (CLIA) as qualified to perform high complexity clinical laboratory testing. Copies To: Vanessa Hodge MD [facility] [address] [place] [phone] Mago Rocha [address] [place] [phone] ----- ------- Signed (signature on file) Maribel Fairfax 11/16/24 1307 ----- ------- END OF REPORT Generic External Data Provider LAB BLOOD ORDERAB LES Final Result Performing Organization Address [facility] Co de Phone Number [facility] [address] [place] [phone] * HCG, Qualitative, Urine (11/15/2024 7:00 AM EDT) [facility] Urine NEGATIVE NEGATIVE [facility] Comment:This test was develo ped to detect early . Falsenegative results may occur after the 5th - 7th week ofpregnancy when using this test method. If clinicallyindicated, consider a serum hCG. 11/15/2024 7:00 AM EDT 11/15/2024 7:03 AM EDT Generic External Data Provider LAB URINE ORDERAB LES Final Result Performing Organization Address [facility] de Phone Number [facility] [address] [place] [phone] * (ABNORMAL) Respiratory Allergy Profile Region I (10/29/2024 4:12 PM EDT) Pathologist [facility] Mouse Urine Proteins (E72) IgE 4.10(A) kU/L [facility] Class 3 [facility] Cockroach (I6) IgE <0.10 kU/L [facility] Class 0 [facility] Dermatophagoides farinae (D2) IgE 8.87(A) kU/L [facility] Class 3 [facility] Cat Dander (E1) IgE 0.34(A) kU/L [facility] Class 0/1 [facility] Comment:THIS TEST WAS PERFOR MED AT:[facility] [address] [id number] FERREIRA MD Dog Dander (E5) IgE 7.43(A) kU/L [facility] Class 3 [facility] Comment:THIS TEST WAS PERFOR MED AT:[facility] [address] [id number] FERREIRA MD Deion Grass (G6) IgE 3.43(A) kU/L [facility] Class 2 [facility] Cladosporium herbarum (M2) IgE 0.19(A) kU/L [facility] Class 0/1 [facility] Aspergillus Fumigatis (M3) IgE 1.06(A) kU/L [facility] Class 2 [facility] Alternaria alternata (M6) IgE 1.69(A) kU/L [facility] Class 2 [facility] Comment:THIS TEST WAS PERFOR MED AT:[facility] [address] [id number] FERREIRA MD Mountain Esmeralda (t6) IgE 1.12(A) kU/L [facility] Class 2 [facility] [place] (T7) IgE 68.60(A) kU/L [facility] Class 5 [facility] Bronx Tree (T10) IgE 4.89(A) kU/L [facility] Class 3 [facility] Hazen (T11) IgE 0.75(A) kU/L [facility] Class 2 [facility] Menominee (T14) IgE 3.60(A) kU/L [facility] Class 3 [facility] White Tl (t15) IgE 1.08(A) kU/L [facility] Class 2 [facility] [place] (T70) IgE <0.10 kU/L [facility] Class 0 [facility] Common Ragweed (Short) (W1) IgE 28.50(A) kU/L [facility] Class 4 [facility] Mugwort (w6) IgE 1.31(A) kU/L [facility] Class 2 [facility] Dermatophagoides pteronyssinus (D1) IgE 6.18(A) kU/L [facility] Class 3 [facility] Bermuda Grass (g2) IgE 0.50(A) kU/L [facility] Class 1 [facility] Penicillium Notatum (M1) IgE <0.10 kU/L [facility] Class 0 [facility] Birch (T3) IgE >100(A) kU/L [facility] Class 6 [facility] Elm (t8) IgE 3.55(A) kU/L [facility] Class 3 [facility] Maple (Webb) (T1) IgE 2.25(A) kU/L [facility] Class 2 [facility] Rough Pigweed (W14) IgE 0.11(A) kU/L [facility] Class 0/1 [facility] Sheep Esko (W18) IgE 0.23(A) kU/L [facility] Class 0/1 [facility] Allergen Comment See Below [facility] Comment: Specific Level of AllergenIGE Class kU/L Specific IGE Antibody ----- --------- 0 <0.10 Absent/Undetectable 0/1 0.10-0.34 Very Low Level 1 0.35-0.69 Low Level 2 0.70-3.49 Moderate Level 3 3.50-17.4 High Level 4 17.5-49.9 Very High Level 5 50-100 Very High Level 6 >100 Very High LevelThe clinical relevance of allergen results of0.10-0.34 kU/L are undetermined and intended forspecialist use.Allergens denoted with a include results usingone or more analyte specific reagents. In thosecases, the test was developed and its analyticalperformance characteristics have been determined [employer]. It has not been cleared or approvedby the U.S. Food and Drug Administration. This assayhas been validated pursuant to the CLIA regulationsand is used for clinical purposes.THIS TEST WAS PERFORMED AT:[facility] [place] [id number] FERREIRA MD 10/29/2024 4:12 PM EDT 10/29/2024 4:13 PM EDT us Generic External Data Provider LAB BLOOD ORDERAB LES Final Result [facility] [address] [place] [phone] * (ABNORMAL) CBC auto differential (10/29/2024 4:12 PM EDT) White Blood Count 11.1(H) 4.8 - 10.8 X10*3/uL [facility] Red Blood Count 4.65 4.20 - 5.50 X10*6/uL [facility] Hemoglobin 13.6 12.0 - 16.0 g/dl [facility] Hematocrit 41.5 37.0 - 47.0 % [facility] Mean Corpuscular Volume 89.2 80.0 - 98.0 fL [facility] Mean Corpuscular Hemoglobin 29.2 27.0 - 33.0 pg [facility] Mean Corpuscular HGB Conc 32.8 31.0 - 35.0 g/dl [facility] Red Cell Distribution Width 13.1 11.0 - 16.0 % [facility] Platelet Count 393 160 - 400 X10*3/uL [facility] Mean Platelet Volume 9.8 9.4 - 12.3 fL [facility] Neutrophils Percent Auto 62.3 45 - 73 % [facility] Imm Gran Pct Auto 0.3 0.0 - 0.4 % [facility] Lymphocytes Percent Auto 25.8 20 - 40 % [facility] Monocytes Percent Auto 7.4 2 - 11 % [facility] Eosinophils Percent Auto 3.8 0 - 4 % [facility] Basophils Percent Auto 0.4 0 - 2 % [facility] NRBC Pct Auto 0.0 0.0 - 0.2 /100WBC [facility] Neutrophils Absolute Auto 6.9 2.0 - 8.3 x10*3/uL [facility] Imm Gran Abs Auto 0.03 0.00 - 0.03 X10*3/uL [facility] Lymphocytes Absolute Auto 2.9 1.2 - 4.9 X10*3/uL [facility] Monocytes Absolute Auto 0.8 0.1 - 1.2 X10*3/uL [facility] Eosinophils Absolute Auto 0.4 0.0 - 0.4 X10*3/uL [facility] Basophils Absolute Auto 0.0 0.0 - 0.2 X10*3/uL [facility] NRBC Abs Auto 0.000 0.0 - 0.012 X10*3/uL [facility] 10/29/2024 4:12 PM EDT 10/29/2024 4:13 PM EDT us Generic External Data Provider LAB BLOOD ORDERAB LES Final Result [facility] [address] [place] [address] [phone] * Hypersensitivity Pneumonitis Screen (10/29/2024 4:12 PM EDT) Aspergillus fumigatus Ab NEGATIVE [facility] Comment:REFRENCE RANGE NEGAT THI Micropolyspora Faeni NEGATIVE [facility] Comment:REFRENCE RANGE NEGAT THI [place] Serum Abs NEGATIVE [facility] Comment:REFRENCE RANGE NEGAT THI Thermoactinomyces candidus NEGATIVE [facility] Comment:REFRENCE RANGE NEGAT THI Thermoactinomyces vulgaris Ab NEGATIVE [facility] Comment:REFRENCE RANGE NEGAT THI Saccharomonospora viridis Ab NEGATIVE [facility] Comment:REFRENCE RANGE NEGAT THI 10/29/2024 4:12 PM EDT 10/29/2024 4:13 PM EDT Generic External Data Provider LAB BLOOD ORDERAB LES Final Result Performing Organization Address [facility] Co de Phone Number [facility] [address] [place] [phone] * Sed Rate by Modified Shantelleren (10/29/2024 4:12 PM EDT) Erythrocyte Sedimentation Rate 7 0 - 20 MM/HR [facility] Comment:Patients with polycy themia and many hemoglobin abnormalitiesmay have depressed sed rates whereas patients with anemiamay have elevated sed rates. 10/29/2024 4:12 PM EDT 10/29/2024 4:13 PM EDT Generic External Data Provider LAB BLOOD ORDERAB LES Final Result Performing Organization Address [facility] Co de Phone Number [facility] [address] [place] [phone] * (ABNORMAL) Immunoglobulin E (10/29/2024 4:12 PM EDT) Immunoglobulin E 417(A) <YB=490 kU/L [facility] 10/29/2024 4:12 PM EDT 10/29/2024 4:13 PM EDT Generic External Data Provider LAB BLOOD ORDERAB LES Final Result Performing Organization Address [facility] Co de Phone Number [facility] [address] [place] [phone] * Basic Metabolic Panel (10/29/2024 4:12 PM EDT) Sodium 141 135 - 145 mmol/L [facility] Potassium 3.5 3.3 - 5.1 mmol/L [facility] Chloride 105 96 - 108 mmol/L [facility] Carbon Dioxide 25 22 - 29 mmol/L [facility] Anion Gap 15 12 - 20 [facility] Urea Nitrogen (BUN) 11 9 - 16 mg/dL [facility] Creatinine, Serum 0.71 0.5 - 1.4 mg/dL [facility] Estimated Glomerular Filt Rate >60 [facility] Comment:Chronic Kidney Disea se: Estimated GFR < 60 mL/min/[id number] Kidney Disease: Estimated GFR < 15 mL/min/1.73m2 Glucose 79 60 - 115 mg/dL [facility] Calcium 10.1 8.4 - 10.2 mg/dL [facility] 10/29/2024 4:12 PM EDT 10/29/2024 4:13 PM EDT us Generic External Data Provider LAB BLOOD ORDERAB LES Final Result Performing Organization Address [facility]/ZIP Co de Phone Number [facility] [address] [place] [phone] * Rast Allergen (10/29/2024 12:00 AM EDT) Rast Allergen SEE NOTE [facility] Comment:SEE SCANNED IN EMR 10/29/2024 10/29/2024 Narrative [facility] - 11/14/2024 8:26 AM EDT CAT AND DOG DANDER REFLEX us Generic External Data Provider HISTORICAL/NON OR DERABLE LABS Final Result Performing Organization Address City/[facility]/ZIP Co de Phone Number [facility] [address] [place] [address] [phone] * Hepatitis C Antibody with Reflex to HCV, RNA, Quantitative, Real-Time PCR (09/28/2023 3:54 PM EDT) Hepatitis C Antibody Nonreactive Nonreactive [facility] Comment:Antibodies to HCV no t detected; does not exclude early acuteHCV infection. Blood Venous blood specimen / Unknown 09/28/2023 3:54 PM EDT 09/28/2023 3:[address] [facility] SET MAKING MACHINE OPERATOR LAB BLOOD ORDERABLES Final Resu lt [facility] [address] [place] [phone] * Chlamydia/N. Gonorrhoeae RNA, TMA, Urogenitial (09/28/2023 3:53 PM EDT) [facility] CT PCR NOT DETECTED Not Detect. [facility] Comment:A not detected test result [...] psychologicalconsequences. NG PCR NOT DETECTED Not Detect. [facility] Comment:A not detected test result [...] PM EDT 09/28/2023 5:14 PM EDT Narrative [facility] - 09/28/2023 6:48 PM EDT Urine Mago Teresa SET MAKING MACHINE OPERATOR LAB MICROBIOLOGY - GENERAL ORDE [facility] Final Result [facility] [address] [place] [phone] * HIV-1/2 Antigen and Antibodies, Fourth Generation, with Reflexes (07/05/2023 9:51 AM EDT) HIV AB/AG Nonreactive Nonreactive [facility] Comment:HIV-1 p24 Ag and/or HIV-1/HIV-2 Ab not detected.A test result that is nonreactive does not exclude thepossibility of exposure to or infection with HIV-1 and/orHIV-2. Nonreactive results in this assay for individualswith prior exposure to HIV-1 and/or HIV-2 may be due toantigen and antibody levels that are below the limit ofdetection of this assay.The [employer] HIV Ag/Ab Combo assay result andsupplemental assay results should be interpreted inconjunction with the patient's clinical presentation,history and other laboratory results. If the results areinconsistent with clinical evidence, additional testing issuggested to confirm the result. Blood Venous blood specimen / Unknown 07/05/2023 9:51 AM EDT 07/05/2023 9:51 AM EDT Mago Rocha SET MAKING MACHINE OPERATOR LAB BLOOD ORDERABLES Final Resu lt [facility] [address] [place] [phone] from Last 3 Months or Most Recently Relevant to Health Maintenance Insurance [employer] [place] [id number] [facility] [id number] Care Teams Double Cutter Relationship Specialty Start Date End Date Mago Rocha NP [address] [place] [phone] PCP - General Family Medicine 01/06/23
--- OUTSIDE RECORDS SUMMARY | 2025-01-05 11:51 | XMS_ITS | Encounter Summary ---
Author Organization [employer] Address [address] [place] [address] [address] [place] [address] Care Team Providers Care Form Setter Supervisor Name Role Phone Mago Rocha NP Primary Care Provider [phone] Reason for Visit * Reason Onset Date Comments Med Refill 11/26/2024 Encounter Details Date Type Department Care Team (Late st Contact Info) Description 11/26/2024 Refill [facility] [address] [place] [address] Mago Rocha NP [address] [place] [address] Seasonal allergies Social History Tobacco Use Types [...] with others, in a hotel, in a halfway, living outside on the street, on a [...] documented as of this encounter Care Teams Form Setter Supervisor Relationship Specialty Start Date End Date Mago Rocha NP [address] [place] [phone] PCP - General Family Medicine 01/06/23 documented as of this encounter
--- OUTSIDE RECORDS SUMMARY | 2025-01-05 11:51 | XMS_ITS | Encounter Summary ---
Author Organization [employer] Address [address] [place] [address] [address] [place] [address] Care Team Providers Care Coal Cutting Machine Operator Name Role Phone Mago Rocha BLANCHING MACHINE OPERATOR Primary Care Provider [phone] Encounter Details Date Type Department Care Team ([facility] st Contact Info) Description 11/01/2024 Results Follow-Up [facility] MED[facility]INE [address] [place] [address] Mago Rocha NP [address] [place] [address] CBC auto differential, Basic Metabolic Panel, Sed Rate by Modified Westergren, Additional followed-up results: 4 Social History Tobacco Use Types Packs/Day Years [...] documented as of this encounter Care Teams Coal Cutting Machine Operator Relationship Specialty Start Date End Date Mago Rocha NP [address] [place] [phone] PCP - General Family Medicine 01/06/23 documented as of this encounter
--- OUTSIDE RECORDS SUMMARY | 2025-01-05 11:51 | XMS_ITS | Encounter Summary ---
Author Organization [employer] Address [address] [place] [address] 7 [place] [address] Care Team Providers Care Venture Capitalist Name Role Phone Mago Rocha NP Primary Care Provider [phone] Reason for Visit * Reason Onset Date Comments Med Refill 10/30/2024 Encounter Details Date Type Department Care Team (Late st Contact Info) Description 10/30/2024 Refill [facility] [address] [place] [address] Mago Rocha NP [address] [place] [address] Seasonal allergies Social History Tobacco Use Types [...] documented as of this encounter Care Teams Venture Capitalist Relationship Specialty Start Date End Date Mago Rocha NP [address] [place] [id number] PCP - General Family Medicine 01/06/23 documented as of this encounter
--- OUTSIDE RECORDS SUMMARY | 2025-01-05 11:51 | XMS_ITS | Encounter Summary ---
Author Organization [employer] Address [address] [place] [address] [address] [place] [address] Care Team Providers Care Jewel Sorter Name Role Phone Mago Rocha MANAGER KNOWLEDGE Primary Care Provider [phone] Reason for Visit * Reason Onset Date Comments Referral 06/01/2024 Encounter Details Date Type Department Care Team (Late st Contact Info) Description 06/01/2024 Telephone [facility] [address] [place] [address] Mago Rocha NP [address] [place] [address] Referral Social History Tobacco Use Types Packs/Day [...] EDT Tc from pt requesting referral for burial needs salesperson, pt requested to go [place] [facility] [place] Specialist : Town Planner Provider : Erwin Roland MD Location : [facility] documented in this encounter Plan of Treatment Not on file documented as of this encounter Visit Diagnoses Not on filedocumented in this encounter Additional Health Concerns Assessment Noted Time PHQ-9 Depression Total Score: 0 06/03/19 24 10:49 AM EDT documented as of this encounter Care Teams Jewel Sorter Relationship Specialty Start Date End Date Mago Rocha NP [address] [place] [id number] PCP - General Family Medicine 01/06/23 documented as of this encounter
--- OUTSIDE RECORDS SUMMARY | 2025-01-05 11:51 | XMS_ITS | Encounter Summary ---
Author Organization [employer] Address [address] [place] [address] 7 [place] [address] Care Team Providers Care Stove Installer Name Role Phone Mago Rocha NEWSPAPER ILLUSTRATOR Primary Care Provider [phone] Reason for Visit * Reason Onset Date Comments Appointment Request 05/31/2024 Encounter Details Date Type Department Care Team ([facility] st Contact Info) Description 05/31/2024 Telephone [facility] [address] [place] [address] Mago Rocha NP [address] [place] [address] Appointment Request Social History Tobacco Use Types [...] from pt requesting appointment for Physical , service writer advisor advised no sooner availability. documented in this encounter Plan of Treatment Not on file documented as of this encounter Visit Diagnoses Not on filedocumented in this encounter Additional Health Concerns Assessment Noted Time PHQ-9 Depression Total Score: 0 06/03/19 24 10:49 AM EDT documented as of this encounter Care Teams Stove Installer Relationship Specialty Start Date End Date Mago Rocha NP [address] [place] [address] PCP - General Family Medicine 01/06/23 documented as of this encounter
--- OUTSIDE RECORDS SUMMARY | 2025-01-05 11:51 | XMS_ITS | Encounter Summary ---
Author Organization [employer] Address [address] [place] [address] 7t [place] [address] Care Team Providers Care Tractor Operator Laser Leveling Name Role Phone Mago Rocha NP Primary Care Provider [phone] Encounter Details Date Type Department Care Team ([facility] st Contact Info) Description 01/03/2025 Orders Only [facility] [address] [place] [address] Jef Cevallos MD [address] [place] [address] Social History Tobacco Use Types Packs/Day Years [...] documented as of this encounter Care Teams Tractor Operator Laser Leveling Relationship Specialty Start Date End Date Mago Rocha NP [address] [place] [id number] PCP - General Family Medicine 01/06/23 documented as of this encounter
--- OUTSIDE RECORDS SUMMARY | 2025-01-05 11:51 | XMS_ITS | Encounter Summary ---
Author Organization [employer] Address [address] [place] [address] 7 [place] [address] Care Team Providers Care Maritime Guard Name Role Phone TeresatonyMago NP Primary Care Provider [phone] Reason for Visit * Reason Onset Date Comments Med Refill 06/20/2024 Encounter Details Date Type Department Care Team ([facility] st Contact Info) Description 06/20/2024 Refill [facility] [address] [place] [address] Massiel Ann MD [address] [place] [address] Social History Tobacco Use Types Packs/Day Years [...] with others, in a hotel, in a correction, living outside on the street, on a [...] documented as of this encounter Care Teams Maritime Guard Relationship Specialty Start Date End Date Mago Rocha NP [address] [place] [address] PCP - General Family Medicine 01/06/23 documented as of this encounter
--- OUTSIDE RECORDS SUMMARY | 2025-01-05 11:51 | XMS_ITS | Clinical Summary ---
Author Organization [facility] Address [address] [place] [address] Phone Care Team Providers Care Lace Sewer Name Role Phone Westley Bailey MD Primary [...] Insurance Medicaid [place] Care Teams Lace Sewer Relationship Specialty Start Date End Date Westley Bailey MD PCP - General Pediatrics 10/31/20
--- OUTSIDE RECORDS SUMMARY | 2025-01-05 11:51 | XMS_ITS | Encounter Summary ---
Author Organization [employer] Address [address] [place] [address] 7 [place] [address] Care Team Providers Care Costuming Supervisor Name Role Phone Mago Rocha NP Primary Care Provider [phone] Reason for Visit * Reason Comments Med Change Request Encounter Details Date Type Department Care Team ([facility] st Contact Info) Description 06/03/2023 Refill [facility] [address] [place] [address] Mago Rocha NP [address] [place] [address] Mild persistent asthma without complication Social History [...] documented as of this encounter Care Teams Costuming Supervisor Relationship Specialty Start Date End Date Mago Rocha NP [address] [place] [address] PCP - General Family Medicine 01/06/23 documented as of this encounter
--- OUTSIDE RECORDS SUMMARY | 2025-01-05 11:51 | XMS_ITS | Encounter Summary ---
Author Organization [employer] Address [address] [place] [address] 7 [place] [address] Care Team Providers Care Insurance Application Investigator Name Role Phone Mago Rocha NP Primary Care Provider [phone] Encounter Details Date Type Department Care Team ([facility] st Contact Info) Description 10/31/2024 Orders Only [facility] [address] [place] [address] Mago Rocha NP [address] [place] [address] Social History Tobacco Use Types Packs/Day Years [...] documented as of this encounter Care Teams Insurance Application Investigator Relationship Specialty Start Date End Date Mago Rocha NP [address] [place] [id number] PCP - General Family Medicine 01/06/23 documented as of this encounter
== END 2025-01-05 11:49 | disposition home or self-care (01) ==
LOC: HO.HMGCX 11:48
PROVIDERS: PCP Nurse Practitioner; Visit Provider Hospitalist
DX: J98.4 Other disorders of lung (principal)
CPT/HCPCS: 71046

== ENCOUNTER → 2025-01-05 11:51 | Outpatient (BNV) | payer OTHER, SELFPAY | PROVIDERS: PCP Nurse Practitioner; Visit Provider Radiology Diagnostic Radiology | DX: J98.4 Other disorders of lung (principal) | CPT/HCPCS: 71046 ==